=== PATIENT | female | born 1975 | race Caucasian/White ===

== ENCOUNTER 2020-03-01 12:46 | Emergency (ER) | payer OTHER, SELFPAY ==
--- NOTE | ~2020-03-01 | XR_ITS ---
EXAMINATION: XR chest 1V portable DATE: 03/01/2020 14:57 INDICATION: Shortness of breath and cough. TECHNIQUE: A single frontal view of the chest was obtained. COMPARISON: Chest single view 11/24/2018 FINDINGS: The chest demonstrates clear lungs without pneumonia, pleural effusion, or pneumothorax. Th e heart size is normal. IMPRESSION: 1. No acute cardiopulmonary disease. Reviewed, dictated and finalized at location A.
[2020-03-01 13:08] VITALS: BP 115/68; PULSE 100; RESP 20; TEMP 36.8; O2SAT 100
--- NOTE | 2020-03-01 14:10 | ED.URI ---
HPI - URI/Sore Throat General Chief Complaint: Upper Respiratory Infection Stated Complaint: cough/ST since Monday Time Seen by Provider: 03/01/20 13:50 Source: patient Mode of arrival: ambulatory Limitations: no limitations History of Present Illness HPI Narrative: This patient is a 44 year old female who presents for evaluation cough and chest congestion. Patient states starting on monday she developed sensation something was stuck in her chest pain/esophagus . She has no problems swallowing. On , she developed cough with sob. She also reports sore throat and congestion. She denies fever or chills. She has been taking cold medication without relief of her symptoms. She denies nausea or vomiting. She reports normal bowel movements with no signs of GI bleeding. MD elicited complaint: cough and sore throat Related Data Home Medications Medication Instructions Recorded Confirmed folic acid 03/01/20 pantoprazole PO 03/01/20 Allergies Allergy/AdvReac Type Severity Reaction Status Date / Time azithromycin Allergy Intermediate Hives / Verified 03/01/20 13:52 Red Face erythromycin base Allergy Unknown Rash Verified 03/01/20 13:52 Penicillins Allergy Unknown Swelling Verified 03/01/20 13:52 Review of Systems Review of Systems: All systems reviewed & are unremarkable except as noted in HPI and below Constitutional: Constitutional: Denies chills and Denies fever(s) ENT: Reports sore throat Cardiovascular: Cardiovascular: Reports chest pain and Denies radiating jaw, neck or arm pain Respiratory: Respiratory: Reports chest congestion, Reports cough, Reports dyspnea and Reports wheezing Gastrointestinal: Gastrointestinal: Denies abdominal pain, Denies diarrhea, Denies nausea and Denies vomiting PMFSH Past Medical History Medical History (Updated 03/01/20 @ 16:46 by Addis Hernandez MD) Cirrhosis Esophageal varices Hepatitis C Surgical History Surgical History (Updated 03/01/20 @ 14:13 by Addis Hernandez MD) History of tonsillectomy Social History Social History (Updated 03/01/20 @ 14:13 by Addis Hernandez MD) Alcohol intake: former Substance use: former Substance use type: IV drugs Exam Narrative: Exam Narrative: GENERAL: Well-appearing, well-nourished, and in no acute distress. HEAD: Normocephalic, atraumatic EYES: PERRLA and EOMI, conjunctiva clear without discharge EARS: TM's clear bilaterally without erythema or dullness NOSE: Nares clear, no rhinorrhea or epistaxis THROAT:Mucous membranes moist, Oropharynx normal without erythema, exudate, peritonsillar swelling or fluctuance NECK: Supple, without lymphadenopathy or mass RESPIRATORY: No respiratory distress, Airway patent, Respirations non-labored, Clear to auscultation without rales, rhonchi or wheeze HEART: Regular rate and rhythm. No murmur heard. Normal peripheral pulses. ABDOMEN: Soft, nontender, nondistended, normal active bowel sounds. No masses. No rebound or guarding, No organomegaly. EXTREMITIES: No edema, normal strength with full range of motion. SKIN: Warm, dry, normal color without rash NEURO: Alert and oriented x3. CN 2-12 grossly intact. No focal deficits. PSYCH: Normal mood and affect. Course Reevaluation(s) Reevaluation #1: I have discussed with patient that labs are unremarkable. She will be swabbed for COVID. She was given precautions. Date: 03/01/20 Time: 16:28 Vital Signs Vital signs: Vital Signs Temperature 98.2 F 03/01/20 13:08 Pulse Rate 100 03/01/20 13:08 Respiratory Rate 20 03/01/20 13:08 Blood Pressure 115/68 03/01/20 13:08 Pulse Oximetry 100 03/01/20 13:08 Temperature 98.2 F 03/01/20 13:08 Pulse Rate 79 03/01/20 17:11 Respiratory Rate 20 03/01/20 17:11 Blood Pressure 118/67 03/01/20 17:11 Pulse Oximetry 98 03/01/20 17:11 MDM - URI/Sore Throat Lab Data Attestation: I reviewed the patient's lab results. Result diag
[2020-03-01 14:31] LABS: Alveolar/Arterial O2 Gradient 11.2 mmHg; Base Excess ABG -0.8 mEq/l (+/-2.0); Carboxyhemoglobin 1.9 % THb (0-2.0); Device ROOM AIR; Fractional Inspired Oxygen 21 %; Methemoglobin ABG 0.2 %THb (0-1.5); Modified Allen's Test Pass; Oxygen Content ABG 16.1 %vol (16.0-22.0); Oxygen Saturation ABG 97.6 % (95.0-100.0); Oxyhemoglobin 94.9 % THb (90.0-100.0); PCO2 ABG 34.9 mmHg (35.0-45.0); PO2 ABG 96.7 mmHg (80.0-100.0); Site Drawn LEFT RADIAL; pH ABG 7.436 (7.350-7.450)
[2020-03-01 14:33] LABS: Basophils Absolute Auto 0.1 K/mm3 (0.0-0.1); Basophils Percent Auto 1.1 % (0.2-1.2); Eosinophils Absolute Auto 0.2 K/mm3 (0-0.3); Eosinophils Percent Auto 3.7 % (0-4.4); Hematocrit 32.4 % (37.0-47.0); Immature Granulocyte Absolute 0.01 K/mm3 (0.00-0.031); Immature Granulocyte Percent A 0.2 % (0-0.5); Immature Platelet Fraction Pct 4.6 % (0.9-11.2); Lymphocytes Absolute Auto 0.66 K/mm3 (0.9-3.2); Lymphocytes Percent Auto 15.1 % (18.3-44.2); Mean Corpuscular Volume 91.3 fl (80-100); Mean Platelet Volume 11.5 fl (7.4-10.4); Monocytes Absolute Auto 0.6 K/mm3 (0.1-0.6); Neutrophils Absolute Auto 2.9 K/mm3 (1.3-6.7); Neutrophils Percent Auto 66.9 % (45.5-73.1); Platelet Count Result 51 k/mm3 (150-375); Red Blood Count 3.55 M/mm3 (4.2-5.4); Red Cell Distribution Width 15.9 % (11.5-14.5); White Blood Count 4.4 K/mm3 (4.5-10.0)
[2020-03-01 14:45] LABS: INR 1.4; Prothrombin Time 16.3 Seconds (11.1-14.7)
[2020-03-01 14:48] LABS: Alanine Aminotransferase 22 U/L (4-35); Albumin Level 3.8 g/dL (3.5-5.1); Alkaline Phosphatase 141 U/L (38-126); Aspartate Amino Transferase 64 U/L (14-36); Bilirubin,Total 1.3 mg/dL (0.2-1.3); Blood Urea Nitrogen 4 mg/dL (7-17); CRP 3.1 mg/dL (<1.0); Calcium 8.4 mg/dL (8.4-10.2); Carbon Dioxide 22 mmol/L (22-30); Chloride 107 mmol/L (98-107); Estimated CRCL calculation 143 ml/min; Estimated Glomerular Filt Rate > 60; Glucose 93 mg/dL (65-105); Magnesium 1.9 mg/dL (1.6-2.3); Potassium 3.9 mmol/L (3.4-5.0); Sodium 139 mmol/L (137-145)
[2020-03-01 15:22] VITALS: PULSE 86; O2SAT 96
--- NOTE | 2020-03-01 16:29 | ECG_ITS ---
Measurements Intervals [place] Rate: 76 P: 18 VT: 114 QRS: 32 QRSD: 73 T: 23 QT: 362 QTc: 409 Interpretive Statements SINUS RHYTHM WITH SHORT VT INTERVAL LOW QRS VOLTAGE IN PRECORDIAL LEADS BASELINE ARTIFACT- I, II, III, AVR, AVL BORDERLINE ECG Electronically Signed On 03-01-2020 16:57:26 CDT by Gilberto Pandya D.O.
[2020-03-01 17:11] VITALS: BP 118/67; PULSE 79; RESP 20; O2SAT 98
[2020-03-02 14:26] LABS: SARS-CoV-2 RNA PCR Negative
== END 2020-03-01 17:11 | disposition home or self-care (01) ==
PROVIDERS: Emergency Provider General Practice; PCP Family Medicine
DX: J06.9 Acute upper respiratory infection, unspecified (principal); Z20.828 Contact with and (suspected) exposure to other viral communicable diseases; K74.60 Unspecified cirrhosis of liver; Z86.19 Personal history of other infectious and parasitic diseases; R94.31 Abnormal electrocardiogram [ECG] [EKG]
CPT/HCPCS: 36415; 36600; 71045; 80053; 82375; 82805; 83050; 83735; 85025; 85055; 85610; 85730; 86140; 87081; 87635; 87880; 93005; 99283; C9803; U0003

== ENCOUNTER 2020-05-19 11:05 | Emergency (ER) | payer OTHER, SELFPAY ==
--- NOTE | ~2020-05-19 | XR_ITS ---
EXAMINATION: XR tibia fibula LT 2V EXAM DATE: 05/19/2020 11:46 INDICATION: Initial encounter following injury, with pain of the left tibia/fibula. TECHNIQUE: Left tibia/fibula frontal and lateral projections obtained and reviewed. There is no prio r study for comparison. FINDINGS: Left tibial and fibular shafts unremarkable. There are no acute fractures or dislocations identified. There is no subcutaneous gas. The soft tissue is unremarkable. There are no radiopaqu e foreign bodies. IMPRESSION: 1. Left tibia/fibula exam without acute osseous findings. Reviewed, dictated and finalized at location B.
--- NOTE | ~2020-05-19 | US_ITS ---
EXAMINATION: US venous doppler [facility] EXAM DATE: 05/19/2020 12:33 INDICATION: Left leg swelling. TECHNIQUE: Multiple grayscale, color flow and Doppler images of the left lower extremity deep venous system were obtained and reviewed. There is no prior study for comparison. FINDINGS: The left common femoral, femoral and profunda veins demonstrate normal color flow, respirat ory variation, augmentation and compressibility. Compressibility, color flow confirmed within the le ft popliteal, posterior tibial, peroneal, and greater saphenous veins. IMPRESSION: 1. No left lower extremity deep venous thrombosis. Reviewed, dictated and finalized at location B.
--- NOTE | ~2020-05-19 | XR_ITS ---
EXAMINATION: XR ankle LT 2V, XR foot LT min 3V EXAM DATE: 05/19/2020 11:46 INDICATION: Initial encounter following injury, with pain of the left foot, ankle. TECHNIQUE: Left foot dorsoplantar, lateral and oblique projections obtained and reviewed. Left ankle frontal, lateral and oblique projections obtained and reviewed. There is no prior study for compari son. FINDINGS: The left ankle mortise appears intact. Probable old 5th metatarsal shaft fracture, hea led. There are no acute fractures or dislocations identified. There is no subcutaneous gas. There is soft tissue swelling overlying the ankle. There are no radiopaque foreign bodies. IMPRESSION: 1. Left foot, ankle exam without acute osseous findings. 2. Soft tissue swelling. Reviewed, dictated and finalized at location B. IMPRESSION: 1. Left foot, ankle exam without acute osseous findings. 2. Soft tissue swelling.
--- NOTE | 2020-05-19 11:09 | ED.LOWEXIN ---
HPI - Extremity Injury (Lower) General Chief Complaint: Extremity Injury, Lower Stated Complaint: FOOT PAIN, WANTS TESTED FOR COVID (NO S&S) Time Seen by Provider: 05/19/20 11:09 Source: patient Mode of arrival: ambulatory Limitations: no limitations History of Present Illness HPI Narrative: Patient is a 44-year-old female with a history of cirrhosis secondary to hepatitis C, rheumatoid arthritis, who presents for evaluation of left ankle and foot pain. Patient reports she was walking her dog approximately a week ago, when her dog pulled her forward causing her to roll her ankle. Patient states that she has increased swelling and pain in the foot and left ankle since that time. She has been ambulatory. Patient states she has a history of fracture in that left ankle. No numbness. She does report burning, tingling sensation in that left ankle. No history of DVT. No fever, chills, nausea or vomiting. Patient also reports she recently had contact with a patient who was tested positive for COVID about a week ago. Patient states she feels well, denies fever, chills, cough, congestion, chest pain or shortness of breath. Related Data Home Medications Medication Instructions Recorded Confirmed folic acid 03/01/20 pantoprazole PO 03/01/20 Allergies Allergy/AdvReac Type Severity Reaction Status Date / Time azithromycin Allergy Intermediate Hives / Verified 05/19/20 12:18 Red Face erythromycin base Allergy Unknown Rash Verified 05/19/20 12:18 Penicillins Allergy Unknown Swelling Verified 05/19/20 12:18 Review of Systems Review of Systems: Narrative: CONSTITUTIONAL: Denies fever, chills, or sweats. EYES: Denies visual changes, redness, or discharge. ENT: Denies rhinorrhea, congestion, sore throat, or otalgia. CARDIOVASCULAR: Denies chest pain, palpitations, reports left lower extremity swelling RESPIRATORY: Denies cough or dyspnea. GASTROINTESTINAL: Denies abdominal pain, nausea, vomiting, or diarrhea. GENITOURINARY: Denies dysuria or hematuria. SKIN: Denies rash or itching. MUSCULOSKELETAL: Denies back pain, reports left ankle pain, left foot pain NEUROLOGIC: Denies headache, numbness, or weakness. [facility] Past Medical History Medical History Cirrhosis Esophageal varices Hepatitis C Surgical History Surgical History History of tonsillectomy Social History Social History Alcohol intake: former Substance use: former Substance use type: IV drugs Exam Narrative: Exam Narrative: GENERAL: Awake, alert, conversant HEAD: Normocephalic, atraumatic. EYES: PERRLA and EOMI. ENT: Nares clear, no rhinorrhea or epistaxis. Mucous membranes moist. NECK: Supple. CHEST: No respiratory distress, breathing even and non labored HEART: Regular rate, sinus rhythm ABDOMEN:Non distended, non tender EXTREMITIES: Normal range of motion. Edema at the left lower calf muscle extending to the left ankle and left foot. Tender to palpation. Extremities warm and well perfused. Mild erythema, mild warmth, no blistering. No abscess. SKIN: Warm, dry, no rash. NEURO:No focal deficits. Alert and oriented x3 Course Vital Signs Vital signs: Vital Signs Temperature 36.8 C 05/19/20 11:15 Pulse Rate 108 H 05/19/20 11:15 Respiratory Rate 16 05/19/20 11:15 Blood Pressure 116/63 05/19/20 11:15 Pulse Oximetry 96 05/19/20 11:15 Temperature 36.8 C 05/19/20 11:15 Pulse Rate 108 H 05/19/20 11:15 Respiratory Rate 16 05/19/20 11:15 Blood Pressure 116/63 05/19/20 11:15 Pulse Oximetry 96 05/19/20 11:15 MDM - Extremity Injury (Lower) MDM Narrative Medical decision making narrative: Patient presenting for evaluation of left ankle swelling, foot swelling in the setting of injury approximately a week ago. Patient has been ambulatory. On exam, lower
[2020-05-19 11:15] VITALS: BP 116/63; PULSE 108; RESP 16; TEMP 36.8; O2SAT 96
[2020-05-19 12:07] LABS: Basophils Absolute Auto 0.1 K/mm3 (0.0-0.1); Basophils Percent Auto 1.6 % (0.2-1.2); Eosinophils Absolute Auto 0.2 K/mm3 (0-0.3); Eosinophils Percent Auto 3.5 % (0-4.4); Hematocrit 34.1 % (37.0-47.0); Hemoglobin 11.3 g/dL (12.0-15.0); Immature Granulocyte Absolute 0.01 K/mm3 (0.00-0.031); Immature Granulocyte Percent A 0.2 % (0-0.5); Immature Platelet Fraction Pct 6.2 % (0.9-11.2); Lymphocytes Absolute Auto 0.65 K/mm3 (0.9-3.2); Lymphocytes Percent Auto 15.1 % (18.3-44.2); Mean Corpuscular HGB Conc 33.1 g/dl (32-36); Mean Corpuscular Volume 93.7 fl (80-100); Mean Platelet Volume 11.7 fl (7.4-10.4); Monocytes Absolute Auto 0.5 K/mm3 (0.1-0.6); Monocytes Percent Auto 10.7 % (2.6-8.5); Neutrophils Percent Auto 68.9 % (45.5-73.1); Platelet Count Result 34 k/mm3 (150-375); Red Blood Count 3.64 M/mm3 (4.2-5.4); Red Cell Distribution Width 15.9 % (11.5-14.5); White Blood Count 4.3 K/mm3 (4.5-10.0)
[2020-05-19 12:17] LABS: Anion Gap 6 mmol/L (8-16); Blood Urea Nitrogen 3 mg/dL (7-17); Carbon Dioxide 30 mmol/L (22-30); Chloride 108 mmol/L (98-107); Estimated Glomerular Filt Rate > 60; Glucose 105 mg/dL (65-105); Potassium 3.7 mmol/L (3.4-5.0); Sodium 144 mmol/L (137-145)
[2020-05-19 13:27] VITALS: BP 103/74; PULSE 89; RESP 14; O2SAT 97
== END 2020-05-19 13:15 | disposition home or self-care (01) ==
PROVIDERS: Emergency Provider Emergency Medicine
DX: S93.402A Sprain of unspecified ligament of left ankle, initial encounter (principal); R22.42 Localized swelling, mass and lump, left lower limb; X50.0XXA Overexertion from strenuous movement or load, initial encounter; Z20.828 Contact with and (suspected) exposure to other viral communicable diseases
CPT/HCPCS: 36415; 73590; 73600; 73630; 80048; 85025; 85055; 93971; 99284

== ENCOUNTER 2020-07-10 12:36 | Emergency (ER) | payer OTHER, SELFPAY ==
[2020-07-10 13:07] VITALS: BP 130/71; PULSE 102; RESP 20; TEMP 36.5; O2SAT 99
--- NOTE | 2020-07-10 13:43 | PC.NURSE ---
Patient left ER. States I really don't want to be in the waiting room with a bunch of sick people, I'll come back this weekend. Informe dpatient to return if symptoms worsen or she has other concerns
== END 2020-07-10 13:43 | disposition left against medical advice (07) ==
DX: M79.672 Pain in left foot (principal)
CPT/HCPCS: 99199

== ENCOUNTER 2020-07-20 16:12 | Outpatient (CLI) | payer OTHER, SELFPAY ==
--- NOTE | ~2020-07-20 | US_ITS ---
EXAMINATION: US venous doppler [facility] DATE: 07/20/2020 16:34 INDICATION: Left lower limb swelling. TECHNIQUE: Grayscale ultrasound images without and with compression and Doppler ultrasound images of the left lower extremity veins were obtained. COMPARISON: Ultrasound 05/19/2020 FINDINGS: The visualized portions of left common femoral vein, profunda (deep) femoral vein, femoral vein, popl iteal vein, peroneal veins, posterior tibial veins, and greater saphenous vein outflow are patent. IMPRESSION: 1. No deep venous thrombosis. Reviewed, dictated and finalized at location B. [employer] DETAIL DRAFTSPERSON
== END 2020-07-20 16:13 | disposition home or self-care (01) ==
PROVIDERS: Visit Provider Orthopaedic Surgery
DX: R60.0 Localized edema (principal)
CPT/HCPCS: 93971

== ENCOUNTER 2020-07-25 12:22 | Outpatient (CLI) | payer OTHER, SELFPAY ==
[2020-07-25 14:02] LABS: Basophils Absolute Auto 0.1 K/mm3 (0.0-0.1); Basophils Percent Auto 1.3 % (0.2-1.2); Eosinophils Absolute Auto 0.2 K/mm3 (0-0.3); Eosinophils Percent Auto 4.2 % (0-4.4); Hemoglobin 11.7 g/dL (12.0-15.0); Immature Granulocyte Absolute 0.01 K/mm3 (0.00-0.031); Immature Granulocyte Percent A 0.3 % (0-0.5); Immature Platelet Fraction Pct 9.5 % (0.9-11.2); Lymphocytes Absolute Auto 0.64 K/mm3 (0.9-3.2); Lymphocytes Percent Auto 16.7 % (18.3-44.2); Mean Corpuscular HGB Conc 33.4 g/dl (32-36); Mean Corpuscular Hemoglobin 32.1 pg (26-34); Mean Corpuscular Volume 95.9 fl (80-100); Mean Platelet Volume 13.3 fl (7.4-10.4); Monocytes Absolute Auto 0.4 K/mm3 (0.1-0.6); Neutrophils Absolute Auto 2.6 K/mm3 (1.3-6.7); Neutrophils Percent Auto 66.5 % (45.5-73.1); Platelet Count Result 26 k/mm3 (150-375); Red Blood Count 3.65 M/mm3 (4.2-5.4); Red Cell Distribution Width 14.3 % (11.5-14.5); White Blood Count 3.8 K/mm3 (4.5-10.0)
[2020-07-25 14:15] LABS: Alanine Aminotransferase 40 U/L (4-35); Albumin Level 3.2 g/dL (3.5-5.1); Alkaline Phosphatase 229 U/L (38-126); Anion Gap 7 mmol/L (8-16); Aspartate Amino Transferase 156 U/L (14-36); Bilirubin,Total 2.1 mg/dL (0.2-1.3); Blood Urea Nitrogen 2 mg/dL (7-17); Calcium 8.1 mg/dL (8.4-10.2); Carbon Dioxide 28 mmol/L (22-30); Chloride 106 mmol/L (98-107); Cholesterol 143 mg/dL (0-200); Estimated Glomerular Filt Rate > 60; Glucose 112 mg/dL (65-105); HDL Direct 34 mg/dL; Potassium 3.8 mmol/L (3.4-5.0); Sodium 141 mmol/L (137-145); Triglycerides 163 mg/dL (<150)
[2020-07-25 14:29] LABS: LDL Cholesterol Direct 63 mg/dL
[2020-07-25 15:08] LABS: Hemoglobin A1C 4.5 % (<5.7)
[2020-07-25 15:14] LABS: Vitamin D 25 Hydroxy 17.4 ng/mL
== END 2020-07-25 12:23 | disposition home or self-care (01) ==
DX: Z13.9 Encounter for screening, unspecified (principal)
CPT/HCPCS: 36415; 80053; 80061; 82306; 83036; 85025; 85055

== ENCOUNTER 2020-08-01 08:43 | Outpatient (CLI) | payer OTHER, SELFPAY ==
--- NOTE | ~2020-08-01 | MR_ITS ---
EXAMINATION: MR ankle LT wo con DATE: 08/01/2020 09:31 INDICATION: Left ankle pain. TECHNIQUE: Magnetic resonance imaging (MRI) of the left ankle was performed without intravenous contr ast. Sequences included sagittal PD-weighted FS FSE, sagittal PD-weighted FSE, coronal PD-weighted FS FSE, coronal PD-weighted FSE, axial PD-weighted FS FSE, and axial PD-weighted FSE. COMPARISON: Left ankle radiograph 05/19/2020 FINDINGS: Medial ankle ligaments: The superficial and deep components of the deltoid ligament are normal. Lateral ankle ligaments: There are changes of prior sprains of anterior talofibular ligament and calcaneofibular ligament rosas acterized by increased signal intensity. Posterior talofibular ligament is normal. The anterior and p osterior tibiofibular ligaments are intact. Tendons: There is mild tenosynovitis of the medial ankle tendons. The anterior ankle tendons are normal. There is a longitudinal split tear of peroneus brevis tendon. There is mild peroneus longus tendinopathy. There is tenosynovitis of the peroneal tendons. There is mild Achilles tendinopathy. Plantar fascia: Normal. There is an enthesophyte at the calcaneal attachment. Bones/other: Bone alignment is normal. No fracture. There is mild midfoot osteoarthritis. There is moderate osteoa rthritis of second tarsometatarsal joint. Fluid: There is subcutaneous edema about the ankle. IMPRESSION: 1. Longitudinal split tear of peroneus brevis tendon. Mild peroneus longus tendinopathy. Peroneal ten osynovitis. 2. Changes of lateral ankle sprain. 3. Midfoot osteoarthritis. Reviewed, dictated and finalized at location A. UNICATION ENGINEER IMPRESSION: 1. Longitudinal split tear of peroneus brevis tendon. Mild peroneus longus tend inopathy. Peroneal tenosynovitis. 2. Changes of lateral ankle sprain. 3. Midfoot osteoarthritis.
== END 2020-08-01 08:44 | disposition home or self-care (01) ==
PROVIDERS: Visit Provider Orthopaedic Surgery
DX: M19.072 Primary osteoarthritis, left ankle and foot (principal); S93.402D Sprain of unspecified ligament of left ankle, subsequent encounter; X58.XXXD Exposure to other specified factors, subsequent encounter
CPT/HCPCS: 73721

== ENCOUNTER 2020-09-06 16:21 | Inpatient (IN) | payer OTHER, SELFPAY ==
[2020-09-06] VITALS (26 sets, daily range): BP systolic 60–184; BP diastolic 40–141; PULSE 85–154; RESP 12–94; TEMP 34.4–36.4; O2SAT 26–100
--- NOTE | ~2020-09-06 | XR_ITS ---
EXAMINATION: XR abdomen/kub 1V EXAM DATE: 09/06/2020 23:27 INDICATION: Abdominal pain. TECHNIQUE: Frontal projection(s) of the abdomen for interpretation. There is no prior study for maida hathaway. FINDINGS: Nonspecific but nonobstructive bowel gas pattern. Several epigastric region small foreign bodies, could be surgical clips. There are no osseous abnormalities identified. IMPRESSION: Nonobstructive bowel gas pattern. Reviewed, dictated and finalized at location A. [employer]ATE [employer]
--- NOTE | ~2020-09-06 | XR_ITS ---
EXAMINATION: XR chest port-a-cath/central EXAM DATE: 09/06/2020 16:21 INDICATION: Central line placement. TECHNIQUE: Portable AP frontal chest x-ray was obtained. Comparison is made to prior examination from 03/14/2019. FINDINGS: Feeding tube tip and side-port are in position. The right IJ venous line is extending later ally into the right subclavian vein, tip overlying the right axilla. I discussed this position with Can Cornejo MD. No confluent consolidation, pneumothorax or pleural effusion suspected. The cardiomediastinal silhoue tte is prominent but magnified on this AP technique. There are no osseous abnormalities identified. IMPRESSION: 1. Abnormal position right IJ line. 2. Nasogastric tube in position. 3. No acute cardiopulmonary findings. Reviewed, dictated and finalized at location A. E CLEANER
--- NOTE | ~2020-09-06 | XR_ITS ---
EXAMINATION: XR chest 1V portable EXAM DATE: 09/07/2020 06:04 INDICATION: Intubated. TECHNIQUE: Portable AP frontal chest x-ray was obtained. Comparison is made to prior examination from 09/06/2020. FINDINGS: Endotracheal tube tip is 4-5 centimeters above the angy. Right IJ venous line again iden tified the tip extending down the right subclavian vein. There is ill-defined bilateral reticulation, which could be edema or infection. There are no sizable pleural effusions. There is no pneumothorax suspected. Cardiomediastinal silhouette is normal. The bones and soft tissues are unremarkable. Ill-defined bilateral reticulation has developed compared to previous days. IMPRESSION: 1. Abnormal right subclavian line position, tip extending into right subclavian vein to the level of the axilla. 2. Developing bilateral ill-defined infection or edema. Reviewed, dictated and finalized at location A. [employer] IMPRESSION: 1. Abnormal right subclavian line position, tip extending into right subclavia n vein to the level of the axilla. 2. Developing bilateral ill-defined infection or edema.
--- NOTE | ~2020-09-06 | XR_ITS ---
EXAMINATION: XR chest 1V portable DATE: 09/07/2020 14:04 INDICATION: PICC line placement TECHNIQUE: frontal view of the chest was obtained. COMPARISON: Chest radiograph dated 09/07/2020 FINDINGS: Left upper extremity peripherally inserted central venous catheter (PICC) tip at the caudal superior vena cava. Endotracheal tube tip 4.8 cm above the angy. Right subclavian central venous catheter w hich extends into the right subclavian vein with distal tip in the right axillary vein. Opacities in the right lower lung zone and to lesser degree left lower lung zone which could represen t atelectasis and/or pneumonia. No pleural effusion or pneumothorax. The cardiomediastinal silhouette is normal. Surgical clips in the epigastric region. IMPRESSION: 1. Left PICC line tip in the caudal superior vena cava. 2. Right internal jugular central venous catheter with distal tip in the right axillary vein. 3. Opacities in the bilateral lower lung zones, right greater than left, which could represent atelec tasis and/or pneumonia. Reviewed, dictated and finalized at location B. R REPRESENTATIVE IMPRESSION: 1. Left PICC line tip in the caudal superior vena cava. 2. Right internal jugular central venous catheter with distal tip in the right axillary vein. 3. Opacities in the bilateral lower lung zones, right greater than left, which could represent atelectasis and/or pneumonia.
--- NOTE | ~2020-09-06 | XR_ITS ---
EXAMINATION: XR chest 1V portable EXAM DATE: 09/08/2020 06:23 INDICATION: intubation TECHNIQUE: Portable AP frontal chest x-ray was obtained. Comparison is made to prior examination from 09/07. FINDINGS: Endotracheal tube tip is 4-5 centimeters above the angy. There is a nasogastric tube seen with tip collimated off the study, but below the left hemidiaphragm. There is a left-sided PICC li ne, tip projecting over the SVC below the level of the angy. There is ill-defined bilateral reticulation, which could be edema or infection. There are no sizable pleural effusions. There is no pneumothorax suspected. Cardiomediastinal silhouette is normal. The bones and soft tissues are unremarkable. The previously seen right IJ line has been removed. Airspace disease appears unchanged. IMPRESSION: 1. Line, tubes in position. 2. Bilateral ill-defined infection or edema. Reviewed, dictated and finalized at location A. TOR OPERATOR
--- NOTE | ~2020-09-06 | XR_ITS ---
XR abdomen NG/feed tube insert DATE: 09/07/2020 16:58 INDICATION: NG tube insertion TECHNIQUE: Portable supine AP view COMPARISON: None FINDINGS: A nasogastric tube is present in the lower body of the stomach, the proximal port 6 cm dist al to the diaphragmatic hiatus. IMPRESSION: NG tube in stomach Reviewed, dictated and finalized at Location A. Reviewed, dictated and finalized at location A. TRUCK OPERATOR IMPRESSION: NG tube in stomach
--- NOTE | 2020-09-06 16:27 | ED.GIBLEED ---
HPI - GI Bleed General Chief complaint: GI Bleed Stated complaint: GI Bleed Time Seen by Provider: 09/06/20 16:26 History of Present Illness HPI Narrative: 45 yo female w/ h/o cirrhosis and esophageal varices presents to the ED for a GI bleed. She reportedly began vomiting bright red blood about 1 hour prior to arrival. She has a liver doctor at [facility]. She is feeling light headed. History is limited by medical condition. Related Data Home Medications Medication Instructions Recorded Confirmed No Home Medications 09/06/20 09/06/20 Allergies Allergy/AdvReac Type Severity Reaction Status Date / Time azithromycin Allergy Intermediate Hives / Verified 09/06/20 16:25 Red Face erythromycin base Allergy Unknown Rash Verified 09/06/20 16:25 Penicillins Allergy Unknown Swelling Verified 09/06/20 16:25 Review of Systems Review of Systems: ROS unobtainable: Yes unobtainable due to medical condition PMFSH Past Medical History Medical History (Updated 09/06/20 @ 17:49 by Chinmay Cornejo MD) Cirrhosis Esophageal varices Hepatitis C Surgical History Surgical History History of tonsillectomy Social History Social History Alcohol intake: former Substance use: former Substance use type: IV drugs Gender identity (if verbalized by the patient): Female Exam Const: General: alert and ill appearing acutely Orientation/consciousness: patient oriented x3 Other: Severe distress. HENMT: Other: Active hematemesis Eyes: Pupils: Equal, round and reactive pupils present Resp: Effort & Inspection: normal respiratory effort and tachypneic Cardio: Rate: tachycardic Rhythm: regular rhythm GI: Inspection: distended Skin: General skin exam: jaundice and pallor Neuro: General: patient oriented x3 and moves all extremities Other: Listless Extrem: General: normal to inspection Course Vital Signs Vital signs: Vital Signs Temperature 36.4 C L 09/06/20 16:32 Pulse Rate 106 H 09/06/20 16:32 Respiratory Rate 40 H 09/06/20 16:32 Blood Pressure 83/51 L 09/06/20 16:32 Pulse Oximetry 99 09/06/20 16:32 Temperature 36.3 C L 09/06/20 17:32 Pulse Rate 94 09/06/20 17:32 Respiratory Rate 16 09/06/20 17:32 Blood Pressure 78/55 L 09/06/20 17:32 Pulse Oximetry 98 09/06/20 17:32 Procedures Central Line Placement Right IJ: Performed Emergently - Given emergent patient condition, temporal constraints may have precluded informed consent.: Yes Patient Placed on Monitor/Pulse Ox: Yes Max. Sterile Barrier Technique: Caps, large sterile sheet and hand hygiene Central Line Prep: 2% chlorhexidine scrub and sterile drapes applied Technique: US-Guided Local Anesthetic: lidocaine 1% Ultrasound Used for Placement: Yes Central Line Lumen Inserted: triple Post Procedure: sutured in place, good blood return, all ports aspirated, flushed, capped and sterile dressing applied Post Procedure X-Ray: no pneumothorax seen Patient Tolerated Procedure: well Complications: catheter malposition (Tip appears to be in subclavian vein. Not ideal placement, but I will leave it in place for the time being. ) MDM - GI Bleed Lab Data Labs: Lab Results 09/06/20 09/06/20 Range/Units 15:26 16:59 Urine Color Alize (Yellow) Urine Appearance Cloudy H (Clear) Urine pH 6.0 (5.0-9.0) Ur Specific [place] 1.019 (1.001-1.035) Urine Protein 2+ H (Negative) mg/dL Urine Glucose (UA) 1+ H (Negative) mg/dL Urine Ketones Negative (Negative) mg/dL Ur Blood (Man) Negative (Negative) Urine Nitrate Negative (Negative) Urine Bilirubin 1+ H (Negative) Urine Urobilinogen 4.0 H (<2.0) mg/dL Leukocyte Esterase Rfl Trace H (Negative) CINTHIA/UL Urine RBC 11-20 H (0-2) /hpf Urine WBC 0-3 /hp
--- NOTE | 2020-09-06 16:30 | PC.NURSE ---
At 1555 patient vitals 99 heart rate, 16 respirations and BP 64/44. 1559 pulse rate 92 with bp 70/49. 1601 pulse rate 94, respirations 17 and bp 70/49. 1606 pulse rate 100, respirations 15 with bp 73/57.
--- NOTE | 2020-09-06 16:41 | PC.NURSE ---
Patient received 1 LI per EMS and stopped at approx 1528. At 1532 a 18 turkish NG placed in right nare with position 60 at the nare. Copious amounts of blood noted on output. 1534 verbal consent obtained for massive blood transfusion and central line placement.
[2020-09-06] MEDS: OCTREOTIDE ACETATE 50 MCG/ML VIAL IV PUSH (16:49)
[2020-09-06] MEDS: PANTOPRAZOLE SODIUM IV 40 MG VIAL 80 MG IV PUSH (16:50)
[2020-09-06] MEDS: TRANEXAMIC ACID 1,000 MG/10 ML AMPUL 1000 MG IV PUSH (16:50)
--- NOTE | 2020-09-06 16:51 | PC.NURSE ---
NS 1 Li infused at this time, started LR 999ml/hr at this time for BP 74/51.
--- NOTE | 2020-09-06 17:00 | PM.IMHP ---
H&P: HPI History of Present Illness Date/Time: 09/06/20 17:00 Chief Complaint: Abdominal pain and hematemesis. Narrative: This is a 45-year-old female with history of alcohol abuse, cirrhosis, and hepatitis-C who presented to the emergency department earlier today via ambulance with abdominal pain and hematemesis. After work today she had [employer] for lunch and returned home. Not long thereafter she developed diffuse, sharp shooting abdominal pain followed by severe nausea and vomiting. From the outset she reports vomiting bright red blood in significant quantities, and she was also passing dark stools at the same time. With further questioning she mentions that she has been having abdominal pain off and on for nearly 1 month with increasing abdominal girth. She has an upcoming appointment with her java oracle developer at [facility] in the coming weeks for repeat endoscopy (she had several esophageal varices banded in March 2020). She has not had fever, chills, or sweats. No alcohol use since November 2019. She had not noticed any dark stools recently but does report an increase in epistaxis. Due to significant blood loss, and emergent EGD was done at bedside in the ICU per Dr. Corea. No obvious varices or source of bleeding was readily apparent at the outset, and a large amount of bright red blood with clots was seen in the gastric cardia. Nearly 1.5 L of blood was suctioned and after irrigation a large Toshia-Haas tear was evident in the gastric cardia for which a total of 16 mL of epinephrine was administered in addition to 5 clips. Throughout the procedure, I was in contact with Dr. Mak, gastroenterology at [facility], as initially it was thought that the patient was going to need transfer emergently. Her case is still open at [facility] should she need to be transferred, however she has since stabilized. Review of Systems Review of Systems: Narrative: Twelve systems were reviewed with pertinent positives and negatives as per HPI. She denies fever, chills, and sweats. No recent cold or flu symptoms. No cough or shortness of breath. No chest pain. She denies dysuria. Except as documented, all other systems were reviewed and are negative. FORMERLY [facility], [facility]–1983 Past Medical History Medical History (Updated 09/06/20 @ 22:48 by Kemi Story PA-C) [place] esophagus Cirrhosis Esophageal varices Banded at [facility] in March 2020. Gastroesophageal reflux disease Hepatitis C Patient reportedly completed treatment for same. History of alcohol abuse She has abstained from using alcohol since November 2019. 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 History of seizures Thrombocytopenia Surgical History Surgical History History of tonsillectomy Family History Family History (Updated 09/06/20 @ 22:44 by Kemi Story PA-C) Other Cancer Social History Social History (Updated 09/06/20 @ 22:45 by Kemi Story PA-C) Social History: The patient is currently living in [place] with her mother. 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 Former alcoholic, dry since November 2019. She is a smoker, approximately 6 cigarettes a day. She designates her mother Lexi Valiente as her surrogate decision maker and she wishes to be a full code. Her ex-, Ramiro Harris, is her healthcare power of senior attorney and she wishes for both him and her mother to make medical decisions on her behalf should she be unable to do so. She wishes to be a full code. Alcohol intake: former Substance use: former Substance use type: IV drugs Gender identity (if verbalized by the patient): Female Meds Home Medications and Allergies Home Medications Medication Instructions Recorded Confirmed Type No Home Medications 09/06/20 09/06/20 History Allergies Allergy/AdvReac Type [place]
[2020-09-06] MEDS: SODIUM CHLORIDE 0.9% IV 250 ML 30 ML IV CONT (17:11)
[2020-09-06 17:13] LABS: Add Urine Microscopic? YES; Appearance Urine Cloudy (Clear); Bacteria Urine Trace /hpf; Bilirubin Urine 1+ (Negative); Blood Urine Negative (Negative); Color Urine Amber (Yellow); Glucose Urine UA 1+ mg/dL (Negative); Hyaline Casts Urine 20-29 /lpf; Ketones Urine Negative (Negative); Leukocyte Esterase Ur Trace LEU/UL (Negative); Mucus Urine Moderate /lpf; Nitrate Urine Negative (Negative); Protein Urine 2+ mg/dL (Negative); Specific Grav Ur 1.019 (1.001-1.035); Squamous Epithelial Cell Urine Many /hpf (Few); WBC Urine 0-3 /hpf
--- NOTE | 2020-09-06 18:20 | WPDGICN ---
Assessment and Plan Assessment and plan (1) Upper gastrointestinal hemorrhage: Code(s): K92.2 - Gastrointestinal hemorrhage, unspecified Status: Acute Assessment and Plan: will proceed with urgent egd continue with iv octreotide and protonix drip, also iv antibiotics in setting of acute gib with cirrhosis she is critically ill, ICU care anesthesia will proceed to intubate patient to protect her airway given large amount of hematemesis just before EGD (2) Hemorrhagic shock: Code(s): R57.8 - Other shock Status: Acute Assessment and Plan: she already received blood transfusion and plasma continue to monitor and give more as needed based on clinical course and counts. (3) Cirrhosis: Code(s): K74.60 - Unspecified cirrhosis of liver Status: Acute Assessment and Plan: history of HCV but treated and apparently achieved SVR she is established with asic design engineer at [facility] (4) Acute blood loss anemia: Code(s): D62 - Acute posthemorrhagic anemia Status: Acute (5) Esophageal varices: Code(s): I85.00 - Esophageal varices without bleeding Status: Acute Assessment and Plan: egd to assess source of bleeding- ? esophageal/gastric varices, ulcers, esophagitis, tear, etc (6) Thrombocytopenia: Code(s): D69.6 - Thrombocytopenia, unspecified Status: Acute Assessment and Plan: from cirrhosis GI Consult Note Consult date/time: 09/06/20 18:20 Reason for consult: gib, cirrhosis, shock HPI: Maryjo Rey is a 45 year old female with history of HCV that was treated and apparently cured (per patient), former alcoholic and drug user with last EGD 03/2020 at [facility] with endoscopic variceal banding (discussed case with her GI doctor- no report of gastric varix and also had eradication of esophageal varices) here with new onset of abdominal pain, nausea and emesis bright red blood, was lightheaded and also melena. She came to ER, labs hb 7.7, wbc 7, plat 68, bun 3, creat 0.6, ast 62, alt 20, alb 2.1, bili 2.2. She came to ICU and we are ready to proceed with urgent EGD, she also already received 2 units of PRBC and FFP. Review of Systems Constitutional: Constitutional: Reports fatigue Eyes: Eyes: Reports no additional eye complaints ENT: Reports Normal hearing present Cardiovascular: Cardiovascular: Reports lightheadedness Respiratory: Respiratory: Denies dyspnea Gastrointestinal: Gastrointestinal: Reports abdominal pain, Reports nausea, Reports vomiting and Reports hematemesis Genitourinary: Genitourinary: Denies hematuria Musculoskeletal: Musculoskeletal: Denies neck pain Integumentary/Breasts: Skin/Breast: Denies dry skin Neurologic: Denies numbness Psychiatric: Psychiatric: Reports anxiety [facility] Past Medical History Medical History (Updated 09/06/20 @ 20:10 by Rogers Corea MD) Acute blood loss anemia Cirrhosis Esophageal varices Hepatitis C Thrombocytopenia Surgical History Surgical History History of tonsillectomy Social History Social History Alcohol intake: former Substance use: former Substance use type: IV drugs Gender identity (if verbalized by the patient): Female Meds Home Medications and Allergies Home Medications Medication Instructions Recorded Confirmed Type No Home Medications 09/06/20 09/06/20 History Allergies Allergy/AdvReac Type Severity Reaction Status Date / Time azithromycin Allergy Intermediate Hives / Verified 09/06/20 16:25 Red Face erythromycin base Allergy Unknown Rash Verified 09/06/20 16:25 Penicillins Allergy Unknown Swelling Verified 09/06/20 16:25 Vital Signs Vital Signs - 24 hr 09/06/20 16:32 09/06/20 16:38 09/06/20 16:44 Temperature 97.5 F L 97.4 F L Pulse Rate 106 H 93 93 Respiratory Rate 40 H 12 21 H Blood Pressure
--- NOTE | 2020-09-06 18:20 | PC.NURSE ---
Addendum entered by Rona Brown RN 09/06/20 18:22: Blood was transfused at 1556. Original Note: 2 units PRBC given, please see massive blood transfusion form. Patient gave verbal consent at time of transfusion.
--- NOTE | 2020-09-06 18:44 | ADMGEN ---
This patient, Maryjo Rey, was admitted to Intensive Care Unit-8. Patient/family oriented to hospital policies and general routines including ID bracelet, bed and alarms, visiting hours, pain management, procedures, bathroom and other care routines, personal items, smoking policy, room service/diet, and visiting hours. Information on how to activate the Rapid Response Team has been discussed. Patient/Family are encouraged to report perceived risks to care and to ask questions if they do not understand what they are told or what they should do.
[2020-09-06] MEDS: FENTANYL 2,500MCG/NS250ML(*CRX 2,500 MCG/250 ML BAG IV CONT (19:00)
[2020-09-06] MEDS: NOREPINEPHRINE 8 MG/D5W 250 ML 8 MG/250 ML BAG 9.38 MG IV CONT (19:30)
[2020-09-06 20:09] LABS: Alveolar/Arterial O2 Gradient 343.4 mmHg; Base Excess ABG -10.6 mEq/l (+/-2.0); Carboxyhemoglobin 0.1 % THb (0-2.0); Fractional Inspired Oxygen 100 %; HCO3 ABG 15.8 mEq/l (22.0-26.0); Methemoglobin ABG 0.6 %THb (0-1.5); Oxygen Content ABG 14.1 %vol (16.0-22.0); Oxygen Saturation ABG 99.7 % (95.0-100.0); PCO2 ABG 37.2 mmHg (35.0-45.0); PO2 ABG 332.4 mmHg (80.0-100.0); PO2 FiO2 Ratio Arterial Blood 3.32 %; Reduced Hemoglobin 1.3 %THb (0-5.0); Total Hemoglobin 9.6 g/dL (12.0-18.0)
[2020-09-06 20:11] LABS: Device VENTILATOR; Modified Allen's Test Unable to perform; Site Drawn RIGHT RADIAL; pH ABG 7.246 (7.350-7.450)
[2020-09-06 20:12] LABS: Arterial Blood Gas PEEP 5 cmH2O; Arterial Blood Gas Tidal Volume 350 ml; Arterial Blood Gas Vent Mode ASSIST CONTROL; Arterial Blood Gas Ventilator rate 24 /MIN
--- NOTE | 2020-09-06 20:35 | SUR.OPER ---
MULTIPLE ESCROW OFFICER'S AT BEDSIDE THROUGHOUT PROCEDURE.
[2020-09-06] MEDS: LACTATED RINGERS 1,000 ML 125 ML IV CONT ×2 (21:10→23:17)
[2020-09-06] MEDS: CENTRAL LINE FLUSH 10 ML IV PUSH (21:28)
[2020-09-06] MEDS: SODIUM BICARBONATE 8.4% 50 MEQ/50 ML SYRINGE 100 MEQ IV PUSH (21:28)
[2020-09-06] MEDS: VASOPRESSIN INJ 100 UNITS in DEXTROSE 5% 95 ML IV CONT (21:32)
[2020-09-06 21:33] LABS: Basophils Absolute Auto 0.1 K/mm3 (0.0-0.1); Basophils Percent Auto 0.5 % (0.2-1.2); Eosinophils Percent Auto 0.3 % (0-4.4); Hemoglobin 8.9 g/dL (12.0-15.0); Immature Granulocyte Absolute 0.23 K/mm3 (0.00-0.031); Immature Granulocyte Percent A 2.1 % (0-0.5); Lymphocytes Absolute Auto 0.86 K/mm3 (0.9-3.2); Lymphocytes Percent Auto 7.7 % (18.3-44.2); Mean Corpuscular Hemoglobin 31.2 pg (26-34); Mean Corpuscular Volume 94.7 fl (80-100); Mean Platelet Volume 10.2 fl (7.4-10.4); Monocytes Absolute Auto 0.4 K/mm3 (0.1-0.6); Monocytes Percent Auto 3.7 % (2.6-8.5); Neutrophils Absolute Auto 9.6 K/mm3 (1.3-6.7); Neutrophils Percent Auto 85.7 % (45.5-73.1); Platelet Count Result 113 k/mm3 (150-375); Red Blood Count 2.85 M/mm3 (4.2-5.4); Red Cell Distribution Width 15.8 % (11.5-14.5); White Blood Count 11.2 K/mm3 (4.5-10.0)
[2020-09-06 21:42] LABS: Alanine Aminotransferase 34 U/L (4-35); Albumin Level 2.1 g/dL (3.5-5.1); Alkaline Phosphatase 93 U/L (38-126); Anion Gap 6 mmol/L (8-16); Aspartate Amino Transferase 92 U/L (14-36); Bilirubin,Total 2.2 mg/dL (0.2-1.3); Blood Urea Nitrogen 4 mg/dL (7-17); Calcium 6.3 mg/dL (8.4-10.2); Carbon Dioxide 22 mmol/L (22-30); Chloride 113 mmol/L (98-107); Estimated CRCL calculation 99 ml/min; Estimated Glomerular Filt Rate > 60; Glucose 131 mg/dL (65-105); Lipase 163 U/L (23-300); Potassium 3.6 mmol/L (3.4-5.0); Sodium 141 mmol/L (137-145)
[2020-09-06 22:13] LABS: Anion Gap 9 mmol/L (8-16); Blood Urea Nitrogen 4 mg/dL (7-17); Calcium 6.2 mg/dL (8.4-10.2); Carbon Dioxide 20 mmol/L (22-30); Chloride 110 mmol/L (98-107); Estimated CRCL calculation 99 ml/min; Estimated Glomerular Filt Rate > 60; Glucose 189 mg/dL (65-105); Magnesium 1.3 mg/dL (1.6-2.3); Potassium 3.9 mmol/L (3.4-5.0); Sodium 139 mmol/L (137-145)
[2020-09-06 22:31] LABS: INR 1.8; Partial Thromboplastin Time 31.8 SECONDS (22.3-36.8); Prothrombin Time 21.2 Seconds (11.1-14.7)
[2020-09-06 22:47] LABS: Fibrinogen 137 mg/dl (215-510)
[2020-09-06 22:48] LABS: D Dimer 4.51 ug/mL (<0.48)
[2020-09-07] VITALS (49 sets, daily range): BP systolic 91–124; BP diastolic 46–88; PULSE 86–134; RESP 20–27; TEMP 35.7–37.9; O2SAT 100; BMI 31.7
[2020-09-07] MEDS: CALCIUM GLUCONATE 1,000 MG/10 ML VIAL 1000 MG IV PUSH (00:35)
[2020-09-07] MEDS: MAGNESIUM SULF 2 GM/WATER 50ML 2 GM/50 ML BAG IVPB (00:40)
[2020-09-07] MEDS: ALBUMIN HUMAN 25% 25 GM/100 ML 100 ML IVPB (01:31)
[2020-09-07] MEDS: NOREPINEPHRINE 8 MG/D5W 250 ML 8 MG/250 ML BAG 56.25 MG IV CONT ×5 (01:42→21:16)
[2020-09-07 04:24] LABS: Basophils Percent Auto 0.4 % (0.2-1.2); Eosinophils Percent Auto 0.1 % (0-4.4); Hemoglobin 7.5 g/dL (12.0-15.0); Immature Granulocyte Percent A 0.9 % (0-0.5); Lymphocytes Absolute Auto 1.29 K/mm3 (0.9-3.2); Lymphocytes Percent Auto 11.5 % (18.3-44.2); Mean Corpuscular HGB Conc 34.1 g/dl (32-36); Mean Corpuscular Hemoglobin 31.3 pg (26-34); Mean Corpuscular Volume 91.7 fl (80-100); Mean Platelet Volume 10.4 fl (7.4-10.4); Monocytes Absolute Auto 0.8 K/mm3 (0.1-0.6); Monocytes Percent Auto 7.1 % (2.6-8.5); Platelet Count Result 124 k/mm3 (150-375); White Blood Count 11.3 K/mm3 (4.5-10.0)
[2020-09-07 04:36] LABS: Alanine Aminotransferase 57 U/L (4-35); Albumin Level 2.2 g/dL (3.5-5.1); Alkaline Phosphatase 71 U/L (38-126); Anion Gap 7 mmol/L (8-16); Aspartate Amino Transferase 167 U/L (14-36); Bilirubin,Total 2.8 mg/dL (0.2-1.3); Blood Urea Nitrogen 6 mg/dL (7-17); Calcium 6.5 mg/dL (8.4-10.2); Carbon Dioxide 22 mmol/L (22-30); Chloride 107 mmol/L (98-107); Estimated CRCL calculation 99 ml/min; Estimated Glomerular Filt Rate > 60; Glucose 198 mg/dL (65-105); Magnesium 1.7 mg/dL (1.6-2.3); Phosphorus 2.8 mg/dL (2.5-4.5); Potassium 3.6 mmol/L (3.4-5.0); Sodium 136 mmol/L (137-145)
[2020-09-07 04:39] LABS: INR 1.9; Prothrombin Time 22.2 Seconds (11.1-14.7)
[2020-09-07 04:40] LABS: Partial Thromboplastin Time 35.3 SECONDS (22.3-36.8)
[2020-09-07 04:56] LABS: D Dimer 4.29 ug/mL (<0.48)
[2020-09-07 04:59] LABS: Lactic Acid Reflex 4.2 mmol/L (0.7-2.1)
[2020-09-07 05:11] LABS: Alveolar/Arterial O2 Gradient 191.7 mmHg; Base Excess ABG -3.5 mEq/l (+/-2.0); Carboxyhemoglobin 0.2 % THb (0-2.0); Fractional Inspired Oxygen 50 %; HCO3 ABG 19.7 mEq/l (22.0-26.0); Methemoglobin ABG 0.6 %THb (0-1.5); Oxygen Content ABG 11.7 %vol (16.0-22.0); Oxygen Saturation ABG 98.8 % (95.0-100.0); Oxyhemoglobin 96.7 % THb (90.0-100.0); PCO2 ABG 28.8 mmHg (35.0-45.0); PO2 ABG 132.4 mmHg (80.0-100.0); PO2 FiO2 Ratio Arterial Blood 2.65 %; Reduced Hemoglobin 2.5 %THb (0-5.0); Total Hemoglobin 8.4 g/dL (12.0-18.0); pH ABG 7.454 (7.350-7.450)
[2020-09-07 05:13] LABS: Arterial Blood Gas PEEP 5 cmH2O; Arterial Blood Gas Vent Mode ASSIST CONTROL; Arterial Blood Gas Ventilator rate 24 /MIN; Device VENTILATOR; Modified Allen's Test Unable to perform; Site Drawn RIGHT RADIAL
[2020-09-07 05:14] LABS: Arterial Blood Gas Tidal Volume 350 ml
[2020-09-07] MEDS: CENTRAL LINE FLUSH 10 ML IV PUSH ×4 (05:39→21:18)
--- NOTE | 2020-09-07 06:13 | WPDANESEPP ---
Anes - Eval Pre Procedure Procedure: Operation Date: 09/06/20 17:55 Proposed Procedures p Esophagogastroduodenoscopy - Rogers Corea MD Date/Time: 09/07/20 06:13 Pre Op Diagnosis: Upper GI Bleed w hemorrhagic shock Patient Data Age: 45 Gender: F Height: 1.6 m Weight: 81.2 kg Last Vital Signs Temp 37.7 C H 09/07/20 06:00 Pulse 112 H 09/07/20 06:02 Resp 24 H 09/07/20 06:02 BP 96/60 L 09/07/20 06:00 Pulse Ox 100 09/07/20 06:00 Allergies Allergy/AdvReac Type Severity Reaction Status Date / Time azithromycin Allergy Intermediate Hives / Verified 09/06/20 16:25 Red Face erythromycin base Allergy Unknown Rash Verified 09/06/20 16:25 Penicillins Allergy Unknown Swelling Verified 09/06/20 16:25 Home Medications Medication Instructions Recorded Confirmed Type nadolol 20 mg PO DAILY 09/07/20 09/07/20 History Laboratory Tests 09/06/20 09/06/20 09/06/20 15:26 16:59 20:06 WBC RBC Hgb Hct MCV MCH MCHC RDW Plt Count MPV Immature Gran % (Auto) Neut % (Auto) Lymph % (Auto) [place] % (Auto) Eos % (Auto) Baso % (Auto) Lymph # (Auto) [place] # (Auto) Eos # (Auto) Baso # (Auto) Abs Immat Gran (auto) Absolute Neuts (auto) Absolute Nucleated RBC Nucleated RBC % PT INR APTT Fibrinogen D-Dimer Puncture Site Right radial ABG pH 7.246 L* (7.350-7.450) ABG pCO2 37.2 mmHg mmHg (35.0-45.0) ABG pO2 332.4 mmHg H mmHg (80.0-100.0) ABG PO2/FiO2 Ratio 3.32 % % ABG HCO3 15.8 mEq/l L mEq/l (22.0-26.0) ABG O2 Saturation 99.7 % % (95.0-100.0) ABG O2 Content 14.1 %vol L %vol (16.0-22.0) ABG Base Excess -10.6 mEq/l mEq/l (+/-2.0) A-a Gradient 343.4 mmHg mmHg Oxyhemoglobin 98.0 % THb % THb (90.0-100.0) Carboxyhemoglobin 0.1 % THb % THb (0-2.0) Methemoglobin 0.6 %THb %THb (0-1.5) Reduced Hemoglobin 1.3 %THb %THb (0-5.0) Total Hemoglobin 9.6 g/dL L g/dL (12.0-18.0) O2 Delivery Device Ventilator O2 Liters/Min Not Reportable Minute Volume Not Reportable Vent Rate 24 /MIN /MIN Vent Mode Assist control FiO2 100 % % Tidal Volume 350 ml ml PEEP 5 cmH2O cmH2O Peak Inspir Pressure Not Reportable Pressure Support Not Reportable Sodium Potassium Chloride Carbon Dioxide Anion Gap BUN Creatinine Estim Creat Clear Calc Estimated GFR Glucose Lactic Acid Calcium Phosphorus Magnesium Total Bilirubin AST ALT Alkaline Phosphatase Total Protein Albumin Lipase Urine Color Alize (Yellow) Urine Appearance Cloudy H (Clear) Urine pH 6.0 (5.0-9.0) Ur Specific [place] 1.019 (1.001-1.035) Urine Protein 2+ mg/dL H mg/dL (Negative) Urine Glucose (UA) 1+ mg/dL H mg/dL (Negative) Urine Ketones Negative mg/dL mg/dL (Negative) Ur Blood (Man) Negative (Negative) Urine Nitrate Negative (Negative) Urine Bilirubin 1+ H (Negative) Urine Urobilinogen 4.0 mg/dL H mg/dL (<2.0) Leukocyte Esterase Rfl Trace CINTHIA/UL H CINTHIA/UL (Negative) Urine RBC 11-20 /hpf H /hpf (0-2) Urine WBC 0-3 /hpf /h
[2020-09-07] MEDS: LACTATED RINGERS 1,000 ML 125 ML IV CONT (06:52)
[2020-09-07] MEDS: SODIUM CHLORIDE 0.9% IV 250 ML 30 ML IV CONT (06:55)
[2020-09-07 07:20] LABS: Reflex Lactic Acid Yes or No Add Lactic
--- NOTE | 2020-09-07 09:49 | PM.IMPN ---
Progress Note: A&P Assessment and Plan (1) Hemorrhagic shock: Code(s): R57.8 - Other shock Status: Acute Assessment and Plan: Patient with hemorrhagic shock related to bleeding from a large Toshia-Haas tear which was injected and clipped x5 on 09/06. She has received FFP x1, Plt x1, FFP x1 and PRBC 3U (with 4th pending). Currently on norepinephrine and vasopressin - wean as BP allows. Lactic acid level 4.2; will repeat. Continue Protonix and octreotide drips. Providers have spoken with Dr. Fuchs (Gastroenterology) at [facility] and he/she is aware of the situation. Should her condition deteriorate, they will keep her case file open for possible transfer. Appreciate valve mechanic input. (2) Acute respiratory failure: Code(s): J96.00 - Acute respiratory failure, unspecified whether with hypoxia or hypercapnia Status: Acute Assessment and Plan: PH was 7.25 with normal pCO2 on admission after intubation. Related to hemorrhagic shock. Lactic acid level 4.2 related to hypoperfusion. Repeat blood gas improved. Patient remains stable on mechanical ventilation. Wean vent when clinically stable. (3) Upper gastrointestinal hemorrhage: Code(s): K92.2 - Gastrointestinal hemorrhage, unspecified Status: Acute Assessment and Plan: Status post urgent EGD per Dr. Corea showed a large Toshia-Haas tear which was injected and clipped x5 on 09/06. As above. Will need repeat EGD to ensure no ulcer or bleeding from varices. Monitor HH closely and transfuse as needed. (4) Acute blood loss anemia: Code(s): D62 - Acute posthemorrhagic anemia Status: Acute Assessment and Plan: Runs in the 11 range from last year. Hemoglobin on admission was 8.9 and has dropped to 7.5. Currently receiving her 3rd unit packed red blood cells with a 4th unit pending. Serial H&H after transfusion. Monitor closely and transfuse as needed. (5) Toshia-Haas tear: Code(s): K22.6 - Gastro-esophageal laceration-hemorrhage syndrome Status: Acute Assessment and Plan: Judith underwent an emergency EGD for UGI bleed and found to have a large Toshia-Haas tear which was injected and clipped x5. Most likely the source of the acute blood loss. She will need repeat EGD to ensure no other etiology to explain the acute blood loss such as variceal bleeding or peptic ulcer. Appreciate GI input. (6) Cirrhosis: Code(s): K74.60 - Unspecified cirrhosis of liver Status: Acute Assessment and Plan: Patient with known history of alcoholic cirrhosis. No recent abdominal imaging such as CT or ultrasound here. HCV RNA levels were negative in 2019. No coags listed. Will order coags. AST 92 on admission but this is chronically elevated. Albumin 2.1 on admission but has been relatively normal last year. Patient with known esophageal varices. Unclear if she has ascites chronically. Continue supportive care. Check abdominal ultrasound when patient is more stable. (7) Thrombocytopenia: Code(s): D69.6 - Thrombocytopenia, unspecified Status: Acute Assessment and Plan: Patient with chronic thrombocytopenia with values here ranging from 20-50,000. Platelet count on admission here was 113,000 and stable on repeat most likely due to transfusion. Her platelet count most likely will drop. Follow closely and transfuse as needed. (8) Esophageal varices: Code(s): I85.00 - Esophageal varices without bleeding Status: Acute Assessment and Plan: Patient with a history of esophageal varices status post banding in March 2020. As above. (9) DVT prophylaxis: Code(s): Z29.9 - Encounter for prophylactic measures, unspecified Status: Acute Assessment and Plan: SCDs Subjective Date/time seen: 09/07/20 09:49 Interval history: Date of service 09/07 45 old female history alcoholic cirrhosis, hepa
[2020-09-07 10:27] LABS: Hematocrit 23.9 % (37.0-47.0); Hemoglobin 8.4 g/dL (12.0-15.0)
[2020-09-07 10:38] LABS: Lactic Acid 2.8 mmol/L (0.7-2.1)
[2020-09-07 10:45] LABS: INR 1.7; Prothrombin Time 20.3 Seconds (11.1-14.7)
[2020-09-07 10:46] LABS: Partial Thromboplastin Time 34.1 SECONDS (22.3-36.8)
[2020-09-07] MEDS: MIDAZOLAM HCL (*CRX) 2 MG/2 ML VIAL IV PUSH (11:07)
[2020-09-07] MEDS: ALBUMIN HUMAN 25% 12.5 GM/50ML 50 ML IVPB ×3 (11:08→23:12)
--- NOTE | 2020-09-07 11:13 | SUR.OPER ---
SEDATION GIVEN BY REKHA SORTING AND FOLDING SUPERVISOR
[2020-09-07] MEDS: FENTANYL 2,500MCG/NS250ML(*CRX 2,500 MCG/250 ML BAG 15 MCG IV CONT (11:14)
--- NOTE | 2020-09-07 14:35 | PC.NURSE ---
Black from [facility] for PICC placement called, chest xray report given verbal results to Black. [facility] PICC line nurse says OK to use PICC line
--- NOTE | 2020-09-07 14:41 | WPDCNINT ---
Assessment and Plan Assessment and plan (1) Acute respiratory failure: Code(s): J96.00 - Acute respiratory failure, unspecified whether with hypoxia or hypercapnia Status: Acute Assessment and Plan: Patient was intubated and placed on mechanical ventilation due to shock, hematemesis, airway protection -currently on 50% FiO2 and peep of 5, will wean FiO2 as tolerated -patient sedated with fentanyl and Versed, is awake, follows simple commands (2) Toshia-Haas tear: Code(s): K22.6 - Gastro-esophageal laceration-hemorrhage syndrome Status: Acute Assessment and Plan: Hematemesis, severe anemia Repeat EGD on 09/07/2020 showed Toshia-Haas tear at the gastric cardia but no more ongoing bleeding or bruising. The clips in place and in good position. No gastric varices or erosions were seen no ulcers or masses were visualized the bulb in the 2nd portion of duodenum was normal with no ulcers or masses esophagus was examined mucosa was normal otherwise with no esophageal varices -continue octreotide and PPI infusion per GI -appreciate GI following the patient closely (3) Thrombocytopenia: Code(s): D69.6 - Thrombocytopenia, unspecified Status: Acute Assessment and Plan: Thrombocytopenia could be consumptive versus hepatic disease -patient did receive 1 unit of platelets overnight. This is stable this morning and will continue to monitor (4) Acute blood loss anemia: Code(s): D62 - Acute posthemorrhagic anemia Status: Acute Assessment and Plan: Acute blood loss likely related to hematemesis severe anemia. -patient has been transfused 5 units of packed RBCs 1 unit of FFP, 1 unit of platelets,and 1 unit of cryoprecipitate -H&H q.6 hours (5) Cirrhosis: Code(s): K74.60 - Unspecified cirrhosis of liver Status: Acute Assessment and Plan: Patient with history of cirrhosis, follows with the [facility] GI physician Dr LANGFORD who is aware of the situation. Should her condition deteriorate they will keep her case file open for possible transfer. (6) Hemorrhagic shock: Code(s): R57.8 - Other shock Status: Acute Assessment and Plan: Patient with large Toshia-Haas tear of the gastric cardia, with significant bleeding, requiring multiple blood product -patient currently on Levophed and vasopressin, will continue to monitor closely -added albumin very to decrease done min due to cirrhosis Additional Plan Discussed with patient and family and updated them with her condition and plan of care Code status: Full code Critical care time spent: 45 minutes Due to a high probability of clinically significant, life threatening deterioration, the patient required my highest level of preparedness to intervene emergently and I personally spent this critical care time directly and personally managing the patient. This critical care time included obtaining a history; examining the patient; pulse oximetry; ordering and review of studies; arranging urgent treatment with development of a management plan; evaluation of patient's response to treatment; frequent reassessment; and discussions with other providers. It was exclusive of separately billable procedures and treating other patients and teaching time. Please see Assessment and Plan section and the rest of the note for further information on patient assessment and treatment Organic Search Lead Consult Note Consult date: 09/07/20 Time Seen: 07:09 Reason for consult: GI bleed, Toshia-Haas tear of the stomach, hemorrhagic shock, severe acute anemia HPI: Maryjo Rey is a 45 year old female with past medical history of alcohol abuse, cirrhosis, hepatitis-C, esophageal varices banding in March 2020, GERD, history of seizures thrombocytopenia presented the ED on 09/06/2019 with abdominal pain and hematemesis. Patient also complained of lightheadedness and melena. He was found to be anemic w
[2020-09-07 17:39] LABS: Hematocrit 21.3 % (37.0-47.0); Hemoglobin 7.5 g/dL (12.0-15.0)
[2020-09-07] MEDS: LACTATED RINGERS 1,000 ML 75 ML IV CONT (18:20)
[2020-09-07 21:43] LABS: Hematocrit 22.4 % (37.0-47.0)
[2020-09-08] VITALS (31 sets, daily range): BP systolic 101–126; BP diastolic 47–96; PULSE 75–111; RESP 20–24; TEMP 36.8–37.5; O2SAT 88–100
[2020-09-08] MEDS: NOREPINEPHRINE 8 MG/D5W 250 ML 8 MG/250 ML BAG 46.88 MG IV CONT (01:51)
[2020-09-08] MEDS: CENTRAL LINE FLUSH 10 ML IV PUSH ×4 (01:52→16:01)
[2020-09-08 04:03] LABS: Base Excess ABG 0.2 mEq/l (+/-2.0); Carboxyhemoglobin 0.2 % THb (0-2.0); Fractional Inspired Oxygen 30 %; HCO3 ABG 22.6 mEq/l (22.0-26.0); Methemoglobin ABG 0.3 %THb (0-1.5); Oxygen Content ABG 13.1 %vol (16.0-22.0); Oxygen Saturation ABG 96.5 % (95.0-100.0); Oxyhemoglobin 94.5 % THb (90.0-100.0); PO2 ABG 75.8 mmHg (80.0-100.0); PO2 FiO2 Ratio Arterial Blood 2.53 %; Total Hemoglobin 9.8 g/dL (12.0-18.0)
[2020-09-08 04:06] LABS: Arterial Blood Gas PEEP 5 cmH2O; Arterial Blood Gas Tidal Volume 350 ml; Arterial Blood Gas Vent Mode CMV; Arterial Blood Gas Ventilator rate 24 /MIN; Device VENTILATOR; Modified Allen's Test Pass; Site Drawn LEFT RADIAL
[2020-09-08] MEDS: ALBUMIN HUMAN 25% 12.5 GM/50ML 50 ML IVPB ×3 (04:41→17:31)
[2020-09-08] MEDS: FENTANYL 2,500MCG/NS250ML(*CRX 2,500 MCG/250 ML BAG 10 MCG IV CONT (06:13)
[2020-09-08 06:57] LABS: Basophils Percent Auto 0.8 % (0.2-1.2); Eosinophils Absolute Auto 0.3 K/mm3 (0-0.3); Eosinophils Percent Auto 4.7 % (0-4.4); Immature Granulocyte Absolute 0.02 K/mm3 (0.00-0.031); Immature Granulocyte Percent A 0.4 % (0-0.5); Immature Platelet Fraction Pct 2.9 % (0.9-11.2); Lymphocytes Absolute Auto 0.69 K/mm3 (0.9-3.2); Mean Corpuscular HGB Conc 34.7 g/dl (32-36); Mean Corpuscular Hemoglobin 31.1 pg (26-34); Mean Corpuscular Volume 89.6 fl (80-100); Mean Platelet Volume 10.4 fl (7.4-10.4); Monocytes Absolute Auto 0.7 K/mm3 (0.1-0.6); Monocytes Percent Auto 12.4 % (2.6-8.5); Neutrophils Absolute Auto 3.7 K/mm3 (1.3-6.7); Neutrophils Percent Auto 68.7 % (45.5-73.1); Platelet Count Result 41 k/mm3 (150-375); Red Blood Count 2.22 M/mm3 (4.2-5.4); Red Cell Distribution Width 16.2 % (11.5-14.5); White Blood Count 5.3 K/mm3 (4.5-10.0)
[2020-09-08 07:11] LABS: Lactic Acid Reflex 2.5 mmol/L (0.7-2.1)
[2020-09-08 07:26] LABS: Hematocrit 19.9 % (37.0-47.0); Hemoglobin 6.9 g/dL (12.0-15.0)
[2020-09-08 07:29] LABS: Alanine Aminotransferase 88 U/L (4-35); Albumin Level 2.5 g/dL (3.5-5.1); Alkaline Phosphatase 55 U/L (38-126); Anion Gap 4 mmol/L (8-16); Aspartate Amino Transferase 293 U/L (14-36); Bilirubin,Total 4.3 mg/dL (0.2-1.3); Blood Urea Nitrogen 8 mg/dL (7-17); Calcium 6.7 mg/dL (8.4-10.2); Carbon Dioxide 26 mmol/L (22-30); Chloride 102 mmol/L (98-107); Estimated CRCL calculation 156 ml/min; Estimated Glomerular Filt Rate > 60; Glucose 123 mg/dL (65-105); Lipase 99 U/L (23-300); Magnesium 1.5 mg/dL (1.6-2.3); Potassium 3.2 mmol/L (3.4-5.0); Sodium 132 mmol/L (137-145)
[2020-09-08 07:30] LABS: Phosphorus < 1.0 mg/dL (2.5-4.5)
[2020-09-08] MEDS: LACTATED RINGERS 1,000 ML 75 ML IV CONT ×2 (08:01→20:12)
[2020-09-08 08:44] LABS: Immature Platelet Fraction Pct 2.1 % (0.9-11.2); Mean Platelet Volume 10.5 fl (7.4-10.4); Platelet Count Result 40 k/mm3 (150-375)
[2020-09-08 08:53] LABS: INR 1.7; Prothrombin Time 20.8 Seconds (11.1-14.7)
[2020-09-08 08:54] LABS: Magnesium 1.4 mg/dL (1.6-2.3); Partial Thromboplastin Time 39.9 SECONDS (22.3-36.8)
[2020-09-08 08:56] LABS: D Dimer 3.77 ug/mL (<0.48)
[2020-09-08 08:59] LABS: Fibrinogen 154 mg/dl (215-510)
[2020-09-08] MEDS: MAGNESIUM SULF 2 GM/WATER 50ML 2 GM/50 ML BAG IVPB (09:44)
[2020-09-08] MEDS: SODIUM CHLORIDE 0.9% IV 250 ML 30 ML IV CONT ×2 (09:46→11:44)
[2020-09-08 09:54] LABS: Reflex Lactic Acid Yes or No Add Lactic
[2020-09-08] MEDS: NOREPINEPHRINE 8 MG/D5W 250 ML 8 MG/250 ML BAG 24.38 MG IV CONT (10:11)
[2020-09-08] MEDS: VASOPRESSIN INJ 100 UNITS in DEXTROSE 5% 95 ML IV CONT (10:13)
--- NOTE | 2020-09-08 11:18 | PCDIET ---
ICU Rounding Note: Patient remains NPO on vent. Possible transfer to outside hospital discussed. Last recorded weight is 96.7kg which is increased from last review. +I/O. Decreased urine output noted. Bowel Motility: Abdomen firm and distended, per RN. +Bowel sounds. No BM as of yet. Labs Reviewed: Hgb (6.9), Hct (19.9), Glu (123), Cr (0.4), K (3.2), Na (132), Alb (2.5), José Miguel Ca (7.9), PO4 (<1.0), Mg (1.4) Meds Noted: Albumin, Rocephin, Levophed, Fentanyl, LR at 75mL/hr, Protonix, Magnesium Sulfate, Versed, K-Phos, Vasopressin Additional Notes: No documented skin breakdown. Following daily in ICU rounds. Assessing/reassessing every 3 days.
[2020-09-08] MEDS: TUBING, BLOOD PLUM PUMP TUBING 2 EACH XX (11:43)
--- NOTE | 2020-09-08 11:58 | WPDINTPN ---
Progress Note: A&P Assessment and Plan (1) Acute respiratory failure: Code(s): J96.00 - Acute respiratory failure, unspecified whether with hypoxia or hypercapnia Status: Acute Assessment and Plan: Patient was intubated and placed on mechanical ventilation due to shock, hematemesis, airway protection -currently on 30% FiO2 and peep of 5, will wean FiO2 as tolerated -patient sedated with fentanyl and Versed, (2) Toshia-Haas tear: Code(s): K22.6 - Gastro-esophageal laceration-hemorrhage syndrome Status: Acute Assessment and Plan: Hematemesis, severe anemia Repeat EGD on 09/07/2020 showed Toshia-Haas tear at the gastric cardia but no more ongoing bleeding or bruising. The clips in place and in good position. No gastric varices or erosions were seen no ulcers or masses were visualized the bulb in the 2nd portion of duodenum was normal with no ulcers or masses esophagus was examined mucosa was normal otherwise with no esophageal varices -will discontinue octreotide, continue PPI infusion -appreciate GI following the patient closely (3) Thrombocytopenia: Code(s): D69.6 - Thrombocytopenia, unspecified Status: Acute Assessment and Plan: Thrombocytopenia could be consumptive versus hepatic disease -patient did receive 1 unit of platelets overnight. This is stable this morning and will continue to monitor -platelet count this morning of 40, will transfuse 1 unit of platelets (4) Acute blood loss anemia: Code(s): D62 - Acute posthemorrhagic anemia Status: Acute Assessment and Plan: Acute blood loss likely related to hematemesis severe anemia. -patient has been transfused 5 units of packed RBCs 1 unit of FFP, 1 unit of platelets,and 1 unit of cryoprecipitate -H&H q.6 hours -patient dropped her hemoglobin to 6.9 this morning, transfusing 1 unit of packed RBC (5) Cirrhosis: Code(s): K74.60 - Unspecified cirrhosis of liver Status: Acute Assessment and Plan: Patient with history of cirrhosis, follows with the [facility] GI physician Dr LANGFORD who is aware of the situation. Should her condition deteriorate they will keep her case file open for possible transfer. -worsening LFTs and elevated bilirubin - patient has been accepted to the ICU at [facility], will transfer when bed is available (6) Hemorrhagic shock: Code(s): R57.8 - Other shock Status: Acute Assessment and Plan: Patient with large Toshia-Haas tear of the gastric cardia, with significant bleeding, requiring multiple blood product -patient currently on Levophed and vasopressin, will continue to monitor closely -added albumin Additional Plan Discussed with patient and family and updated them with her condition and plan of care Code status: Full code Critical care time spent: 33 minutes Due to a high probability of clinically significant, life threatening deterioration, the patient required my highest level of preparedness to intervene emergently and I personally spent this critical care time directly and personally managing the patient. This critical care time included obtaining a history; examining the patient; pulse oximetry; ordering and review of studies; arranging urgent treatment with development of a management plan; evaluation of patient's response to treatment; frequent reassessment; and discussions with other providers. It was exclusive of separately billable procedures and treating other patients and teaching time. Please see Assessment and Plan section and the rest of the note for further information on patient assessment and treatment Subjective Date/time seen: 09/08/20 11:58 Interval history: Reason for consult: GI bleed, Toshia-Haas tear of the stomach, hemorrhagic shock, severe acute anemia. Requiring multiple blood product -EGD done on 09/06/2020 and 09/07/2020 09/08/2020: Patient seen and examined ezio ivy
[2020-09-08 12:22] LABS: Ammonia 85 umol/L (9-30); Lactic Acid 1.1 mmol/L (0.7-2.1)
[2020-09-08] MEDS: POTASSIUM PHOS,M-BASIC-D-BASIC 20 MMOL in SODIUM CHLORIDE 0.9% IV 250 ML 62.5 MMOL IVPB (12:37)
--- NOTE | 2020-09-08 14:51 | WPDGIPROGNO ---
Progress Note: A&P Assessment and Plan (1) Toshia-Haas tear: Code(s): K22.6 - Gastro-esophageal laceration-hemorrhage syndrome Status: Acute Assessment and Plan: repeat EGD yesterday without signs of more bleeding, clips in place continue with iv protonix, octreotide discontinued (no signs of varices) (2) Acute blood loss anemia: Code(s): D62 - Acute posthemorrhagic anemia Status: Acute Assessment and Plan: she received total of 5 units prbc and other blood products (3) Hemorrhagic shock: Code(s): R57.8 - Other shock Status: Acute (4) Acute respiratory failure: Code(s): J96.00 - Acute respiratory failure, unspecified whether with hypoxia or hypercapnia Status: Acute Assessment and Plan: she was intubated to protect airway, by screw machine tool setter (5) Thrombocytopenia: Code(s): D69.6 - Thrombocytopenia, unspecified Status: Acute (6) Cirrhosis: Code(s): K74.60 - Unspecified cirrhosis of liver Status: Acute (7) DIC syndrome: Code(s): D65 - Disseminated intravascular coagulation [defibrination syndrome] Status: Acute Assessment and Plan: possible dic or decompensated cirrhosis (elevated d-dimer, low fibrinogen and worsening thrombocytopenia), on pressors primary team talked to screw machine tool setter at [facility] so she can be evaluated by her pollution control technician because worsening liver function and still critically ill, transfer in progress but awaiting for icu bed available Subjective Date/time seen: 09/08/20 14:51 Interval history: still on pressors and intubated, no signs of bleeding. NGT only bilious material no more coffee ground Review of Systems Review of Systems: All systems reviewed & are unremarkable except as noted in HPI and below Exam Const: Other: intubated and sedated, still ill HENMT: Other: ETT in place Eyes: Pupils: Equal, round and reactive pupils present Neck: Neck: supple Resp: Effort & Inspection: normal respiratory effort Auscultation: rhonchi Other: Diminished at bases Cardio: Rate: regular rate Rhythm: regular rhythm GI: Inspection: distended GI Palp: Yes Soft to palpation and No Tenderness to palpation present (GI) Auscultation: abnormal bowel sounds (Hypoactive bowel sounds) : Other: Zuluaga catheter in place Urinary Catheter: Urinary Catheter: patent and draining and urine dark Skin: General skin exam: no rashes or lesions noted Neuro: Other: Patient is intubated and sedated Extrem: General: normal to inspection, edema and pedal edema Psych: Other: Unable to assess at this time Objective Data Vital Signs Vital Signs: Vital Signs - 24 hr 09/07/20 15:40 09/07/20 16:00 09/07/20 16:22 Temperature 100.3 F H Pulse Rate 108 H 105 H 108 H Respiratory Rate 24 H Blood Pressure 107/48 L 109/60 107/48 L Pulse Oximetry 100 09/07/20 16:56 09/07/20 17:09 09/07/20 17:10 Temperature Pulse Rate 118 H 120 H 120 H Respiratory Rate 24 H 24 H Blood Pressure Pulse Oximetry 100 09/07/20 17:12 09/07/20 17:14 09/07/20 18:00 Temperature 100.3 F H Pulse Rate 120 H 120 H 116 H Respiratory Rate 24 H Blood Pressure 124/71 124/71 99/51 L Pulse Oximetry 100 09/07/20 18:22 09/07/20 19:43 09/07/20 19:46 Temperature Pulse Rate 117 H 117 H 108 H Respiratory Rate 24 H Blood Pressure Pulse Oximetry 100 09/07/20 20:00 09/07/20 20:10 09/07/20 21:16 Temperature 98.6 F Pulse Rate 112 H 101 H Respiratory Rate 24 H Blood Pressure 105/52 L 113/55 L Pulse Oximetry 100 100 09/07/20 22:00 09/07/20 23:12 09/07/20 23:14 Temperature 100.0 F H Pulse Rate 100 99 99 Respiratory Rate 24 H 24 H 24 H Blood Pressure 105/46 L Pulse Oximetry 100 09/07/20 23:15 09/07/20 23:16 09/08/20 00:00 Temperature 99.2 F Pulse Rate 101 H 99 99 Respiratory Rate 24 H Blood Pressure 116/71 120/67 Pulse Oximetry 100 100 09/08/20 00:05 09/08/20 01:51 0
[2020-09-08] MEDS: CENTRAL LINE FLUSH 20 ML IV PUSH (16:02)
[2020-09-08] MEDS: NOREPINEPHRINE 8 MG/D5W 250 ML 8 MG/250 ML BAG 18.75 MG IV CONT (20:11)
--- NOTE | 2020-09-15 14:07 | PM.TDS ---
Transfer Discharge Sum: Prov Provider Date of admission: 09/06/20 16:57 Primary care physician: RN HOSPITAL PHYSICIAN Admitting clinician: Maulik Pollard MD Consults: 09/06/20 16:58 Consult to Physician Routine Comment: Consulting Provider: Rajendra Dickens Reason for consultation: Hemorrhagic shock Has provider been notified: Yes Consult to Physician Routine Comment: Consulting Provider: Rogers Corea Reason for consultation: Upper GI bleed Has provider been notified: Yes DS: Admitting Diagnosis Admitting Diagnosis Admitting Diagnosis: GI bleed, Toshia-Haas tear of the stomach, hemorrhagic shock, severe acute anemia. DS: Discharge Diagnosis Discharge Diagnosis (1) Acute respiratory failure: Code(s): J96.00 - Acute respiratory failure, unspecified whether with hypoxia or hypercapnia Status: Acute Assessment and Plan: Patient was intubated and placed on mechanical ventilation due to shock, hematemesis, airway protection -currently on 30% FiO2 and peep of 5, will wean FiO2 as tolerated -patient sedated with fentanyl and Versed, (2) Toshia-Haas tear: Code(s): K22.6 - Gastro-esophageal laceration-hemorrhage syndrome Status: Acute Assessment and Plan: Hematemesis, severe anemia Repeat EGD on 09/07/2020 showed Toshia-Haas tear at the gastric cardia but no more ongoing bleeding or bruising. The clips in place and in good position. No gastric varices or erosions were seen no ulcers or masses were visualized the bulb in the 2nd portion of duodenum was normal with no ulcers or masses esophagus was examined mucosa was normal otherwise with no esophageal varices -will discontinue octreotide, continue PPI infusion -appreciate GI following the patient closely -patient continued to drop her hemoglobin, cold [facility] which she sees her supervisor facepiece line, discussed with vice president biostatistics with accepted the patient, patient will be transferred to [facility] once bed is available (3) Thrombocytopenia: Code(s): D69.6 - Thrombocytopenia, unspecified Status: Acute Assessment and Plan: Thrombocytopenia could be consumptive versus hepatic disease -patient did receive 1 unit of platelets overnight. This is stable this morning and will continue to monitor -platelet count this morning of 40, will transfuse 1 unit of platelets (4) Acute blood loss anemia: Code(s): D62 - Acute posthemorrhagic anemia Status: Acute Assessment and Plan: Acute blood loss likely related to hematemesis severe anemia. -patient has been transfused 5 units of packed RBCs 1 unit of FFP, 1 unit of platelets,and 1 unit of cryoprecipitate -H&H q.6 hours -patient dropped her hemoglobin to 6.9 this morning, transfusing 1 unit of packed RBC (5) Cirrhosis: Code(s): K74.60 - Unspecified cirrhosis of liver Status: Acute Assessment and Plan: Patient with history of cirrhosis, follows with the [facility] GI physician Dr LANGFORD who is aware of the situation. Should her condition deteriorate they will keep her case file open for possible transfer. -worsening LFTs and elevated bilirubin - patient has been accepted to the ICU at [facility], will transfer when bed is available (6) Hemorrhagic shock: Code(s): R57.8 - Other shock Status: Acute Assessment and Plan: Patient with large Toshia-Haas tear of the gastric cardia, with significant bleeding, requiring multiple blood product -patient currently on Levophed and vasopressin, will continue to monitor closely -added albumin Transfer Discharge Sum: Med Medications Active and Home Medications: Home Medications nadolol 20 mg PO DAILY 09/07/20 [History Confirmed 09/07/20] Transfer Discharge Sum: Hosp Hospital Course Hospital course: Maryjo Rey is a 45 year old female with significant past medical history of alcoho
== END 2020-09-08 21:00 | disposition short-term general hospital (02) | DRG 242 ==
LOC: ANHED 17:49 → ANHICU 09-07 08:18
PROVIDERS: Internal Medicine Gastroenterology; Physician Assistant; Admitting Provider Internal Medicine; Emergency Provider Emergency Medicine; Visit Provider Internal Medicine
PROC: 0DJ08ZZ Inspection of Upper Intestinal Tract, Via Natural or Artificial Opening Endoscopic (ICD-10-PCS; CPT 43235; principal; 2020-09-06 17:55)
DX: K22.6 Gastro-esophageal laceration-hemorrhage syndrome (principal); D62 Acute posthemorrhagic anemia; J96.00 Acute respiratory failure, unspecified whether with hypoxia or hypercapnia; R57.8 Other shock; K70.30 Alcoholic cirrhosis of liver without ascites; D69.6 Thrombocytopenia, unspecified; D65 Disseminated intravascular coagulation [defibrination syndrome]; F17.210 Nicotine dependence, cigarettes, uncomplicated; Z86.19 Personal history of other infectious and parasitic diseases
CPT/HCPCS: 31500; 36415; 36430; 36556; 36569; 36600; 51702; 71045; 74018; 80048; 80053; 81001; 82140; 82375; 82805; 83050; 83605; 83690; 83735; 84100; 85014; 85018; 85025; 85049; 85055; 85380; 85384; 85610; 85730; 86850; 86900; 86901; 86920; 86923; 94002; 94003; 96365; 96375; 99291; C1751; C9113; J0171; J0330; J0610; J0696; J1200; J2250; J2354; J2370; J2704; J3010; J3475; J7030; J7050; J7060; J7120; P9012; P9016; P9017; P9034; P9047

== ENCOUNTER 2020-09-18 12:06 | IRF | payer OTHER, SELFPAY ==
--- NOTE | ~2020-09-18 | XR_ITS ---
EXAMINATION: XR abdomen/kub 1V INDICATION: Abdominal pain TECHNIQUE: Supine views of the abdomen were obtained on 2 radiographs. COMPARISON: 09/07/2019 FINDINGS: No dilated loops of bowel are evident. The visualized osseous structures are unremarkable. Surgical projects in the gastroesophageal junction. IMPRESSION: 1. Unremarkable abdominal radiographs. Reviewed, dictated and finalized at location A. ORAL COUNSELOR
--- NOTE | 2020-09-18 12:28 | ADMGEN ---
This patient, Maryjo Rey, was admitted to [facility] Room 223-02. Patient/family oriented to hospital policies and general routines including ID bracelet, bed and alarms, visiting hours, pain management, procedures, bathroom and other care routines, personal items, smoking policy, room service/diet, and visiting hours. Information on how to activate the Rapid Response Team has been discussed. Patient/Family are encouraged to report perceived risks to care and to ask questions if they do not understand what they are told or what they should do.
[2020-09-18 12:38] VITALS: BP 93/53; PULSE 72; RESP 18; TEMP 36.7; O2SAT 99; BMI 30.5
--- NOTE | 2020-09-18 14:18 | WPDREHABHP ---
H&P: HPI History of Present Illness Date/Time: 09/18/20 14:18 Chief Complaint: acute respiratory failure with history of Toshia white tear Narrative: Maryjo Rey is a 45 year old femaleHISTORY OF PRESENT ILLNESS: 45 years old right-handed female has been admitted to rehab floor with the primary rehab impairment category of 15-pulmonary and etiological diagnosis of acute respiratory failure. The patient was seen [id number] on September 18, 2020 at 2:00 p.m. the patient is a 45 years old right-handed female with past medical history of H CV cirrhosis and prior IV drug use who presented to [facility] on September 06, 2020 with hematemesis. The patient was found to be in shock. She was intubated for airway protection,catheter placed for pressors. She was given IV fluids bolus and was started on Levophed and vasopressin. She received 2units of packed RBC, 1unit of platelets 1unit. 1Unit of fresh frozen plasma. She was also Started on IV proton pump inhibitor, octreotide drops, and IV ceftriaxone .she underwent an EGD on September 06, 2020 that showed no bleeding esophageal varices but did show a large Toshia white tear in the gastric cardia which was actively bleeding. Five clips were placed and epinephrine was injected. No gastric varices were identified. Hemodynamics improved after initial EGD and pressors were slowly weaned she required 1unit of packed RBCs and 5units of cryo on September 07, 2020. Repeat EGD on September 07, 2020 showed stable Toshia white tear with no active bleeding or oozing and clips were securely in place. She was continued on the IV PPI and IV ceftriaxone but the octreotide drops were stopped. given the patient's underlying cirrhosis and hepatology care at [facility], the patient was transferred to [facility] for further evaluation. Gastroenterology and hepatology were both consulted. Gastroenterology titrated down the lactulose, order liver ultrasound, and started the patient on nadolol 20 q.h.s.. Patient was extubated on September 12, 2020 and transferred out of ICU on September 13, 2020. The patient's hospitalization has been significant for electrolyte imbalances, respiratory failure, GI bleed, acute blood loss resulting in anemia, encephalopathy, and pain. Electrolyte imbalances are being monitored and repleted as necessary patient is now on room air, GI bleed contained and patient is hemodynamically stable, encephalopathy has resolved and the patient's pain is being controlled with oral analgesics the patient will not be placed on chemical DVT prophylaxis due to her GI bleed.# COVID-19 final results was negative on September 16, 2020 the patient has not traveled outside the [place] or had contact with someone who is ill that has traveled outside the [place] in the past 21 days the patient has not traveled to an area of the [place] that is experiencing known transmission of the Coronavirus and has not had close personal contact with anyone that has. The patient does not have a fever. The patient is not experiencing lower respiratory illness symptoms. # Therapy was initiated at the [facility] facility and the patient was transferred to us from [facility] on September 18, 2020 FALLS OR SURGERIES: the patient has had no major surgery in the last 100 days. The patient has had no falls in the last year. The patient has had no falls with injury in the past year. The patient's mother reports no falls and no major surgery in the past month PAST MEDICAL HISTORY: chronic HCV cirrhosis, esophageal varices, polyarthralgia. RGICAL HISTORY: Multiple EGDs+ esophageal varices banding SOCIAL HISTORY: current every day smoker. No current alcohol or drug abuse. FAMILY HISTORY: Not on file PRIOR LEVEL OF FUNCTION: Eating was [INDEPENDENT] Oral Care was [INDEPENDENT] Toileting Hygiene was [INDEPENDENT] Shower/Bathing was [INDEPENDENT] Upper Body Dressing was [INDEPENDENT] Lower Body Dressing
[2020-09-18 20:00] VITALS: O2SAT 99
[2020-09-18] MEDS: LACTULOSE 20 GM/30 ML UDC 30 GM PO (20:28)
[2020-09-18] MEDS: PANTOPRAZOLE 40 MG TABLET PO (20:44)
[2020-09-18 22:00] VITALS: BP 93/50; PULSE 73; RESP 18; TEMP 37.1; O2SAT 100
[2020-09-19 05:01] VITALS: BP 101/49; PULSE 71; RESP 18; TEMP 36.9; O2SAT 98
[2020-09-19 05:51] LABS: Basophils Absolute Auto 0.1 K/mm3 (0.0-0.1); Basophils Percent Auto 1.6 % (0.2-1.2); Eosinophils Absolute Auto 0.2 K/mm3 (0-0.3); Hematocrit 26.5 % (37.0-47.0); Hemoglobin 8.6 g/dL (12.0-15.0); Immature Granulocyte Absolute 0.03 K/mm3 (0.00-0.031); Immature Granulocyte Percent A 0.7 % (0-0.5); Immature Platelet Fraction Pct 7.4 % (0.9-11.2); Lymphocytes Absolute Auto 0.69 K/mm3 (0.9-3.2); Lymphocytes Percent Auto 15.4 % (18.3-44.2); Mean Corpuscular HGB Conc 32.5 g/dl (32-36); Mean Corpuscular Volume 92.3 fl (80-100); Mean Platelet Volume 11.5 fl (7.4-10.4); Monocytes Absolute Auto 0.5 K/mm3 (0.1-0.6); Monocytes Percent Auto 11.8 % (2.6-8.5); Neutrophils Percent Auto 66.5 % (45.5-73.1); Platelet Count Result 69 k/mm3 (150-375); Red Blood Count 2.87 M/mm3 (4.2-5.4); Red Cell Distribution Width 16.7 % (11.5-14.5); White Blood Count 4.5 K/mm3 (4.5-10.0)
[2020-09-19 06:04] LABS: Anion Gap 4 mmol/L (8-16); Blood Urea Nitrogen 5 mg/dL (7-17); Calcium 7.7 mg/dL (8.4-10.2); Carbon Dioxide 24 mmol/L (22-30); Chloride 107 mmol/L (98-107); Estimated CRCL calculation 119 ml/min; Estimated Glomerular Filt Rate > 60; Glucose 88 mg/dL (65-105); Potassium 3.7 mmol/L (3.4-5.0); Sodium 135 mmol/L (137-145)
[2020-09-19 08:00] VITALS: PULSE 71; RESP 18; O2SAT 98
[2020-09-19] MEDS: MULTIVITAMINS THERAPEUTIC TAB (*BKC) 1 TABLET PO (08:29)
[2020-09-19] MEDS: PANTOPRAZOLE 40 MG TABLET PO ×2 (08:29→19:54)
[2020-09-19] MEDS: FUROSEMIDE 20 MG TABLET PO (08:29)
[2020-09-19] MEDS: SPIRONOLACTONE 50 MG TABLET PO (08:29)
[2020-09-19] MEDS: LACTULOSE 20 GM/30 ML UDC 30 GM PO ×2 (08:29→19:55)
[2020-09-19 10:01] VITALS: PULSE 71
[2020-09-19] MEDS: nadoloL 20 MG TABLET PO (10:01)
[2020-09-19 14:00] VITALS: BP 112/55; PULSE 76; RESP 20; TEMP 37.1; O2SAT 100
--- NOTE | 2020-09-19 14:06 | PCSTNOTE ---
Bedside swallow evaluation is complete. Please see ST evaluation for details and recommendations.
--- NOTE | 2020-09-19 14:09 | WPDNEURORHBP ---
Subjective Date/time seen: 09/19/20 14:09 45 years old right-handed female with the diagnosis of acute respiratory failure in addition to multiple comorbid conditions as mentioned before has been involved in physical therapy and occupational therapy remains afebrile with temp of 36.9? pulse 71 respiration 18 pulse ox 98% on room air and a blood pressure of 101/49. WBC 4.5 with hemoglobin 8.6 platelet count 69 that definitely low though coming up protime 20.8 with INR of 1.7 D-dimer 3.77 a PTT 39.9, lytes normal with sodium 135 ammonia level 85. Continues to be involving the physical therapy and occupational therapy Review of Systems Review of Systems: All systems reviewed & are unremarkable except as noted in HPI and below Functional Status Ambulation Ability Ability to Ambulate 10 Feet: Minimum Assistance X 1 Ability to Ambulate 50 Feet With 2 Turns: Minimum Assistance X 1 Ability to Ambulate 150 Feet: Minimum Assistance X 1 Ambulation Assistive Devices: Walker, Wheeled Exam Const: General: cooperative and comfortable HENMT: Ears: hearing grossly normal bilaterally General nose exam: Normal external nose present and No nasal discharge present Face and sinus: normal facial exam Resp: Effort & Inspection: normal respiratory effort and able to speak in complete sentences Auscultation: clear to auscultation bilaterally Cardio: Rate: regular rate Rhythm: regular rhythm GI: Auscultation: normal bowel sounds Skin: General skin exam: no rashes or lesions noted Neuro: General: patient oriented x3 Cognition (Neuro): normal cognition Motor exam (neuro): 5/5 motor strength present throughout ( generally decreased) and Normal motor muscle tone present throughout Deep tendon reflexes (DTR's): Right triceps reflex intensity grade: 1+, Left triceps reflex intensity grade: 1+, Rt Biceps (C5, C6): 1+, Left biceps reflex intensity grade: 1+, Right brachioradialis reflex intensity grade: 1+, Left brachioradialis reflex intensity grade: 1+, Right patellar reflex intensity grade: 1+, Left patellar reflex intensity grade: 1+, Right ankle reflex intensity grade: 0 and Left ankle reflex intensity grade: 0 Plantar Reflex Responses: downgoing: bilateral Coordination: [id number] test normal Psych: Appearance: grossly normal Objective Data Vital Signs Vital Signs: Vital Signs - 24 hr 09/18/20 20:00 09/18/20 22:00 09/19/20 05:01 Temperature 37.1 C 36.9 C Pulse Rate 73 71 Respiratory Rate 18 18 Blood Pressure 93/50 L 101/49 L Pulse Oximetry 99 100 98 09/19/20 08:00 09/19/20 10:01 Temperature Pulse Rate 71 71 Respiratory Rate 18 Blood Pressure Pulse Oximetry 98 Intake/Output Intake/Output: Intake & Output 09/16/20 09/17/20 09/18/20 09/19/20 23:59 23:59 23:59 23:59 Intake Total 480 480 Balance 480 480 Meds/Results Medications: Active Medications Generic Name Dose Route Start Last Admin Trade Name Freq PRN Reason Stop Dose Admin Furosemide 20 mg 09/19/20 09:00 09/19/20 08:29 Furosemide 20 Mg Tablet PO 20 mg DAILY ANTONINO Administration Lactulose 30 gm 09/18/20 21:00 09/19/20 08:29 Lactulose 20 Gm/30 Ml Udc PO 30 gm Q12HR ANTONINO Administration Multivitamins Therapeutic 1 tablet 09/19/20 09:00 09/19/20 08:29 Multivitamins Therapeutic Tab (*Bkc) PO 1 tablet DAILY ANTONINO Administration Nadolol 20 mg 09/19/20 09:00 09/19/20 10:01 Nadolol 20 Mg Tablet PO 20 mg DAILY ANTONINO Administration Pantoprazole Sodium 40 mg 09/18/20 21:00 09/19/20 08:29 Pantoprazole 40 Mg Tablet PO 40 mg Q12HR ANTONINO Administration Spironolactone 50 mg 09/19/20 09:00 09/19/20 08:29 Spironolactone 50 Mg Tablet PO 50 mg DAILY ANTONINO Administration Labs Labs: Laboratory Results - last 24 hr 09/19/20 09/19/20 05:12 05:12 WBC 4.5 RBC 2.87 L Hgb 8.6 L Hct 26.5 L MCV 92.3 MCH 30.0 MCHC 32.5 RDW 16.7 H Plt Count 69 L D MPV 11.5 H Immature Gran % (
[2020-09-19 20:00] VITALS: PULSE 76; RESP 20; O2SAT 100
[2020-09-19 22:00] VITALS: BP 108/53; PULSE 75; RESP 18; TEMP 36.8; O2SAT 99
[2020-09-20 06:00] VITALS: BP 98/48; PULSE 74; RESP 18; TEMP 37.1; O2SAT 97
[2020-09-20 08:00] VITALS: PULSE 74; RESP 18; O2SAT 97
[2020-09-20 08:37] VITALS: PULSE 74
[2020-09-20] MEDS: PANTOPRAZOLE 40 MG TABLET PO ×2 (08:37→21:12)
[2020-09-20] MEDS: FUROSEMIDE 20 MG TABLET PO (08:37)
[2020-09-20] MEDS: nadoloL 20 MG TABLET PO (08:37)
[2020-09-20] MEDS: SPIRONOLACTONE 50 MG TABLET PO (08:37)
[2020-09-20] MEDS: MULTIVITAMINS THERAPEUTIC TAB (*BKC) 1 TABLET PO (08:38)
[2020-09-20] MEDS: LACTULOSE 20 GM/30 ML UDC 30 GM PO ×2 (08:38→21:12)
[2020-09-20 14:00] VITALS: BP 97/48; PULSE 79; RESP 18; TEMP 36.8; O2SAT 100
[2020-09-20 20:50] VITALS: BP 122/59; PULSE 74; RESP 18; TEMP 37; O2SAT 98
[2020-09-21 05:36] VITALS: BP 105/47; PULSE 74; RESP 20; TEMP 36.6; O2SAT 100
[2020-09-21 08:41] VITALS: PULSE 74
[2020-09-21] MEDS: PANTOPRAZOLE 40 MG TABLET PO ×2 (08:41→20:51)
[2020-09-21] MEDS: SPIRONOLACTONE 50 MG TABLET PO (08:41)
[2020-09-21] MEDS: MULTIVITAMINS THERAPEUTIC TAB (*BKC) 1 TABLET PO (08:41)
[2020-09-21] MEDS: LACTULOSE 20 GM/30 ML UDC 30 GM PO ×2 (08:41→20:51)
[2020-09-21] MEDS: FUROSEMIDE 20 MG TABLET PO (08:41)
[2020-09-21] MEDS: nadoloL 20 MG TABLET PO (08:41)
--- NOTE | 2020-09-21 10:41 | RPD ---
INDIVIDUALIZED PLAN OF CARE FOR Maryjo Rey Brief Synthesis of Pre-Admission Screen, Post-Admission Evaluation and Therapy Evaluations: The patient presents to rehab with deconditioning in the setting of a lengthy hospitalization from acute respiratory failure with hypoxia and a GI bleed. Comorbidities include acute encephalopathy, acute blood loss anemia, upper GI bleed, decompensated liver cirrhosis, thrombocytopenia, hematemesis, hemorrhagic shock, Toshia-Haas tear, hypokalemia, hypophosphatemia, and polyarthralgia. The complexity of the patient's medical management, nursing, and therapy needs require an inpatient rehab hospital stay with a physician-led interdisciplinary team approach. The patient?s needs will be best met in an intensive program vs. at a lower level of care. The patient requires physician services for medical oversight, management of medical complications in setting of present comorbidities, and pain management. The patient requires nursing services for anticoagulation therapy, DVT prophylactics, infection protection, medication management and education, and pressure relief. Deficits include:ADLs, Balance, Endurance, Family Training/Education, Mobility, Pain Management, ROM, Safety, Strength, Swallowing, and Transfers. Game Room Attendant/Case Management for: Discharge Planning and Patient/Family Counseling Physical Therapy: 5 days per week for 90 minutes. Treatments may include: Therapeutic Exercise, Gait Training, Neuromuscular Re-education, Transfer Training, Community Reintegration, Bed Mobility, Patient/Family Education, Wheelchair Mobility Group Therapy/Concurrent Therapy Rationales: -Improve attention span during functional activities in a distracted environment. -Enhance problem solving and/or adequate judgment skills during functional activities in a distracted environment. -Promote increased safety awareness in a distracted environment to reduce fall risk with functional tasks, transfers, and ambulation to allow a more safe, self-sufficient return to the home environment. -Improve dynamic balance skills to promote safety and independence with functional activities in a distracted environment for maximum gain. Occupational Therapy: 5 days per week for 90 minutes. Treatments may include: Therapeutic Exercise, Therapeutic Activity, Cognitive Training, Self-Care Transfer Training, Community Reintegration, Home Management, Patient/Family Education, Wheelchair Mobility Training, Energy Conservation Training Group Therapy/Concurrent Therapy Rationales: -Allow therapist to observe and teach generalization and carry-over of skills learned in individual therapy. -Enhance problem solving and sequencing skills during therapeutic activities in a distracted environment. -Promote increased safety awareness in a realistic setting to reduce fall risk with functional tasks due to visual and verbal distractions. -Increase functional level with ADLs, ADL transfers and use of adaptive equipment through therapeutic activities with others while promoting safety to allow a more safe, self-sufficient return home. Medical Prognosis: Good Anticipated Length of Stay: 10 days Rehab Goals: Eating Goal: 06-Independent Oral Hygiene Goal: 06-Independent Toileting Hygiene Goal: 06-Independent Shower/Bathe Self Goal: 06-Independent Upper Body Dressing Goal: 06-Independent Lower Body Dressing Goal: 06-Independent Putting On/Taking Off Footwear Goal: 06-Independent Rolling Left and Right Goal: 06-Independent Sit to Lying Goal: 06-Independent Lying to Sitting on Side of Bed Goal: 06-Independent Sit to Stand Goal: 06-Independent Chair/Ppy-oi-[id number] Transfer Goal: 06-Independent Toilet Transfer Goal: 06-Independent Car Transfer Goal: 06-Independent Walk 10' Goal: 06-Independent Walk 50' with Two Turns Goal: 06-Independent Walk 150' Goal: 06-Independent Walk 10' on Uneven Surface Goal: 06-Independent 1 Step (Curb) Goal: 06-Independent 4 Steps Goal: 06-Indep
[2020-09-21 13:06] VITALS: BMI 30.5
--- NOTE | 2020-09-21 13:41 | PCNSR ---
On 09/21/20, the student, Marcy Mcelroy, provided care and completed [facility] documentation on this patient. I have reviewed the student's documentation and agree with the findings.
[2020-09-21 14:00] VITALS: BP 102/62; PULSE 74; RESP 20; TEMP 37.1; O2SAT 100
--- NOTE | 2020-09-21 17:28 | WPDNEURORHBP ---
Subjective Date/time seen: 09/21/20 17:28 45 years old with diagnosis of acute respiratory failure in addition to multiple comorbid conditions has been actively involved in a physical therapy and occupational therapy has no specific complaint except generalized abdominal discomfort with no vomiting or diarrhea. Humble is 37.1 pulse 74 respiration 20 pulse ox 100 blood pressure 102/62 Review of Systems Review of Systems: All systems reviewed & are unremarkable except as noted in HPI and below Functional Status Ambulation Ability Ability to Ambulate 10 Feet: Contact Guard Ability to Ambulate 50 Feet With 2 Turns: Contact Guard Ability to Ambulate 150 Feet: Contact Guard Ambulation Assistive Devices: None and Walker, Wheeled Transfers Ability Ability to Transfer In/Out of Chair: Standby Assistance Exam Const: General: cooperative, comfortable and no acute distress HENMT: Head: normocephalic Neck: Neck: full ROM and no lymphadenopathy Resp: Effort & Inspection: normal respiratory effort Cardio: Rate: regular rate Rhythm: regular rhythm GI: Percussion: Yes normal to percussion Auscultation: normal bowel sounds Skin: General skin exam: no rashes or lesions noted Neuro: General: patient oriented x3 Cranial nerves: Yes CN's II-XII intact bilaterally Speech: normal speech Motor exam (neuro): 5/5 motor strength present throughout and Abnormal muscle tone present Sensory Exam: Sensory deficit (Neuro) Coordination: [id number] test normal Psych: Appearance: grossly normal Objective Data Vital Signs Vital Signs: Vital Signs - 24 hr 09/20/20 20:50 09/21/20 05:36 09/21/20 08:41 Temperature 37.0 C 36.6 C Pulse Rate 74 74 74 Respiratory Rate 18 20 Blood Pressure 122/59 L 105/47 L Pulse Oximetry 98 100 09/21/20 14:00 Temperature 37.1 C Pulse Rate 74 Respiratory Rate 20 Blood Pressure 102/62 Pulse Oximetry 100 Intake/Output Intake/Output: Intake & Output 09/18/20 09/19/20 09/20/20 09/21/20 23:59 23:59 23:59 23:59 Intake Total 480 720 760 480 Balance 480 720 760 480 Meds/Results Medications: Active Medications Generic Name Dose Route Start Last Admin Trade Name Freq PRN Reason Stop Dose Admin Furosemide 20 mg 09/19/20 09:00 09/21/20 08:41 Furosemide 20 Mg Tablet PO 20 mg DAILY ANTONINO Administration Lactulose 30 gm 09/18/20 21:00 09/21/20 08:41 Lactulose 20 Gm/30 Ml Udc PO 30 gm Q12HR ANTONINO Administration Multivitamins Therapeutic 1 tablet 09/19/20 09:00 09/21/20 08:41 Multivitamins Therapeutic Tab (*Bkc) PO 1 tablet DAILY ANTONINO Administration Nadolol 20 mg 09/19/20 09:00 09/21/20 08:41 Nadolol 20 Mg Tablet PO 20 mg DAILY ANTONINO Administration Pantoprazole Sodium 40 mg 09/18/20 21:00 09/21/20 08:41 Pantoprazole 40 Mg Tablet PO 40 mg Q12HR ANTONINO Administration Spironolactone 50 mg 09/19/20 09:00 09/21/20 08:41 Spironolactone 50 Mg Tablet PO 50 mg DAILY ANTONINO Administration Progress Note: A&P Assessment and Plan (1) Acute respiratory failure: Code(s): J96.00 - Acute respiratory failure, unspecified whether with hypoxia or hypercapnia Status: Acute (2) DIC syndrome: Code(s): 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 - Disseminated intravascular coagulation [defibrination syndrome] Status: Acute (3) DVT prophylaxis: Code(s): Z29.9 - Encounter for prophylactic measures, unspecified Status: Acute (4) Toshia-Haas tear: Code(s): K22.6 - Gastro-esophageal laceration-hemorrhage syndrome Status: Acute (5) Thrombocytopenia: Code(s): D69.6 - Thrombocytopenia, unspecified Status: Acute (6) Esophageal varices: Code(s): I85.00 - Esophageal varices without bleeding Status: Acute (7) Acute blood loss anemia: Code(s): D62 - Acute posthemorrhagic anemia Status: Acute (8) Cirrhosis: Code(s): K74.60 - Unspecified cirrhosis of liver Status: Acute (9) Person unde
[2020-09-21 20:13] VITALS: BP 99/53; PULSE 55; RESP 18; TEMP 37.1; O2SAT 100
[2020-09-22 05:25] VITALS: BP 86/43; PULSE 70; RESP 18; TEMP 36.9; O2SAT 98
[2020-09-22 05:35] VITALS: BP 98/50
[2020-09-22] MEDS: SPIRONOLACTONE 50 MG TABLET PO (08:18)
[2020-09-22] MEDS: PANTOPRAZOLE 40 MG TABLET PO ×2 (08:18→20:23)
[2020-09-22 08:19] VITALS: PULSE 70
[2020-09-22] MEDS: nadoloL 20 MG TABLET PO (08:19)
[2020-09-22] MEDS: MULTIVITAMINS THERAPEUTIC TAB (*BKC) 1 TABLET PO (08:19)
[2020-09-22] MEDS: FUROSEMIDE 20 MG TABLET PO (08:20)
[2020-09-22] MEDS: LACTULOSE 20 GM/30 ML UDC 30 GM PO ×2 (08:20→20:23)
[2020-09-22 11:03] VITALS: PULSE 76; O2SAT 100
--- NOTE | 2020-09-22 11:12 | WPDNEURORHBP ---
Subjective Date/time seen: 09/22/20 11:12 45 years old with acute respiratory failure in addition to multiple comorbid condition has been involved the physical therapy and occupational therapy on today's visit she is complaining of abdominal discomfort again I will get the flat plate because it could be more accumulation of the ascitic fluid Review of Systems Review of Systems: All systems reviewed & are unremarkable except as noted in HPI and below Functional Status Ambulation Ability Ability to Ambulate 10 Feet: Contact Guard Ability to Ambulate 50 Feet With 2 Turns: Contact Guard Ability to Ambulate 150 Feet: Contact Guard Ambulation Assistive Devices: None and Walker, Wheeled Transfers Ability Ability to Transfer In/Out of Chair: Standby Assistance Exam Const: General: cooperative, comfortable and no acute distress Nutritional Appearance: average body habitus Limitations: other limitations HENMT: Head: normocephalic Ears: hearing grossly normal bilaterally Face and sinus: normal facial exam Eyes: General: appearance normal, both eyes and all related structures Resp: Effort & Inspection: normal respiratory effort Auscultation: clear to auscultation bilaterally Cardio: Rate: regular rate GI: Auscultation: normal bowel sounds Skin: General skin exam: no rashes or lesions noted Neuro: General: patient oriented x3 Cognition (Neuro): normal cognition Speech: normal speech Motor exam (neuro): Abnormal motor strength present ( generally decreased strength) Sensory Exam: Sensory deficit (Neuro) Deep tendon reflexes (DTR's): Right triceps reflex intensity grade: 1+, Left triceps reflex intensity grade: 1+, Rt Biceps (C5, C6): 1+, Left biceps reflex intensity grade: 1+, Right brachioradialis reflex intensity grade: 1+, Left brachioradialis reflex intensity grade: 1+, Right patellar reflex intensity grade: 1+ and Left patellar reflex intensity grade: 1+ Plantar Reflex Responses: downgoing: bilateral Coordination: [id number] test normal Objective Data Vital Signs Vital Signs: Vital Signs - 24 hr 09/21/20 14:00 09/21/20 20:13 09/22/20 05:25 Temperature 37.1 C 37.1 C 36.9 C Pulse Rate 74 55 L 70 Respiratory Rate 20 18 18 Blood Pressure 102/62 99/53 L 86/43 L Pulse Oximetry 100 100 98 09/22/20 05:35 09/22/20 08:19 Temperature Pulse Rate 70 Respiratory Rate Blood Pressure 98/50 L Pulse Oximetry Intake/Output Intake/Output: Intake & Output 09/19/20 09/20/20 09/21/20 09/22/20 23:59 23:59 23:59 23:59 Intake Total 720 760 720 240 Balance 720 760 720 240 Meds/Results Medications: Active Medications Generic Name Dose Route Start Last Admin Trade Name Geovanna PRN Reason Stop Dose Admin Furosemide 20 mg 09/19/20 09:00 09/22/20 08:20 Furosemide 20 Mg Tablet PO 20 mg DAILY ANTONINO Administration Lactulose 30 gm 09/18/20 21:00 09/22/20 08:20 Lactulose 20 Gm/30 Ml Udc PO 30 gm Q12HR ANTONINO Administration Multivitamins Therapeutic 1 tablet 09/19/20 09:00 09/22/20 08:19 Multivitamins Therapeutic Tab (*Bkc) PO 1 tablet DAILY ANTONINO Administration Nadolol 20 mg 09/19/20 09:00 09/22/20 08:19 Nadolol 20 Mg Tablet PO 20 mg DAILY ANTONINO Administration Pantoprazole Sodium 40 mg 09/18/20 21:00 09/22/20 08:18 Pantoprazole 40 Mg Tablet PO 40 mg Q12HR ANTONINO Administration Spironolactone 50 mg 09/19/20 09:00 09/22/20 08:18 Spironolactone 50 Mg Tablet PO 50 mg DAILY ANTONINO Administration Progress Note: A&P Assessment and Plan (1) DIC syndrome: Code(s): D65 - Disseminated intravascular coagulation [defibrination syndrome] Status: Acute (2) Acute respiratory failure: Code(s): J96.00 - Acute respiratory failure, unspecified whether with hypoxia or hypercapnia Status: Acute (3) DVT prophylaxis: Code(s): Z29.9 - Encounter for prophylactic measures, unspecified Status: Acute (4) Toshia-Haas tear: Code(
--- NOTE | 2020-09-22 12:44 | PC.NURSE ---
Patient c/o nausea, compazine ordered as well as KUB and Tylenol for pain. Checked BP and in left arm was 80/43 and per patient states always lower and in right arm is 96/54.
[2020-09-22 12:50] LABS: Anion Gap 3 mmol/L (8-16); Blood Urea Nitrogen 6 mg/dL (7-17); Calcium 8.4 mg/dL (8.4-10.2); Carbon Dioxide 25 mmol/L (22-30); Chloride 108 mmol/L (98-107); Estimated CRCL calculation 119 ml/min; Estimated Glomerular Filt Rate > 60; Glucose 107 mg/dL (65-105); Potassium 3.9 mmol/L (3.4-5.0); Sodium 136 mmol/L (137-145)
[2020-09-22] MEDS: PROCHLORPERAZINE MALEATE 5 MG TABLET PO (12:59)
[2020-09-22 14:00] VITALS: BP 112/64; PULSE 72; RESP 20; TEMP 36.6; O2SAT 97
[2020-09-22 22:00] VITALS: BP 91/47; PULSE 76; RESP 16; TEMP 36.8; O2SAT 100
[2020-09-23 06:00] VITALS: BP 89/49; PULSE 74; RESP 16; TEMP 37.1; O2SAT 93
[2020-09-23] MEDS: MULTIVITAMINS THERAPEUTIC TAB (*BKC) 1 TABLET PO (09:06)
[2020-09-23] MEDS: FUROSEMIDE 20 MG TABLET PO (09:07)
[2020-09-23] MEDS: LACTULOSE 20 GM/30 ML UDC 30 GM PO ×2 (09:07→21:33)
[2020-09-23] MEDS: SPIRONOLACTONE 50 MG TABLET PO (09:07)
[2020-09-23] MEDS: PANTOPRAZOLE 40 MG TABLET PO ×2 (09:07→21:36)
[2020-09-23 10:14] VITALS: PULSE 74
[2020-09-23 14:00] VITALS: BP 104/62; PULSE 80; RESP 20; TEMP 36.9; O2SAT 100
--- NOTE | 2020-09-23 14:34 | WPDNEURORHBP ---
Subjective Date/time seen: 09/23/20 14:34 45 years old with acute respiratory failure in addition to multiple comorbid conditions she had been complaining of mild abdominal discomfort abdominal flat plate was obtained is no evidence of ascitic fluid is afebrile , respirations 16 blood pressure 89 / 49 on Review of Systems Review of Systems: All systems reviewed & are unremarkable except as noted in HPI and below Functional Status Ambulation Ability Ability to Ambulate 10 Feet: Independent Ability to Ambulate 50 Feet With 2 Turns: Independent Ability to Ambulate 150 Feet: Independent Ambulation Assistive Devices: None Transfers Ability Ability to Transfer In/Out of Chair: Independent Exam Const: General: cooperative and comfortable Orientation/consciousness: patient oriented x3 HENMT: Head: normocephalic General nose exam: Normal external nose present and No nasal discharge present Eyes: General: appearance normal, both eyes and all related structures Neck: Neck: full ROM Resp: Effort & Inspection: normal respiratory effort Auscultation: clear to auscultation bilaterally Cardio: Rate: regular rate Rhythm: regular rhythm Neuro: General: patient oriented x3 Cranial nerves: Yes CN's II-XII intact bilaterally Cognition (Neuro): normal cognition Speech: normal speech Motor exam (neuro): Abnormal motor strength present Deep tendon reflexes (DTR's): Right triceps reflex intensity grade: 1+, Left triceps reflex intensity grade: 1+, Rt Biceps (C5, C6): 1+, Left biceps reflex intensity grade: 1+, Right brachioradialis reflex intensity grade: 1+, Left brachioradialis reflex intensity grade: 1+, Right patellar reflex intensity grade: 1+, Left patellar reflex intensity grade: 1+, Right ankle reflex intensity grade: 1+ and Left ankle reflex intensity grade: 1+ Plantar Reflex Responses: downgoing: bilateral Coordination: [id number] test normal Psych: Appearance: grossly normal Objective Data Vital Signs Vital Signs: Vital Signs - 24 hr 09/22/20 22:00 09/23/20 06:00 09/23/20 10:14 Temperature 36.8 C 37.1 C Pulse Rate 76 74 74 Respiratory Rate 16 16 Blood Pressure 91/47 L 89/49 L Pulse Oximetry 100 93 Intake/Output Intake/Output: Intake & Output 09/20/20 09/21/20 09/22/20 09/23/20 23:59 23:59 23:59 23:59 Intake Total 760 720 720 480 Balance 760 720 720 480 Meds/Results Medications: Active Medications Generic Name Dose Route Start Last Admin Trade Name Freq PRN Reason Stop Dose Admin Acetaminophen 650 mg 09/22/20 12:43 Acetaminophen 325 Mg Tablet PO Q6H PRN Mild Pain (1-3) or Fever Furosemide 20 mg 09/19/20 09:00 09/23/20 09:07 Furosemide 20 Mg Tablet PO 20 mg DAILY ANTONINO Administration Lactulose 30 gm 09/18/20 21:00 09/23/20 09:07 Lactulose 20 Gm/30 Ml Udc PO 30 gm Q12HR ANTONINO Administration Multivitamins Therapeutic 1 tablet 09/19/20 09:00 09/23/20 09:06 Multivitamins Therapeutic Tab (*Bkc) PO 1 tablet DAILY ANTONINO Administration Nadolol 10 mg 09/24/20 09:00 Nadolol 10 Mg Tablet PO QAM ANTONINO Pantoprazole Sodium 40 mg 09/18/20 21:00 09/23/20 09:07 Pantoprazole 40 Mg Tablet PO 40 mg Q12HR ANTONINO Administration Prochlorperazine Maleate 5 mg 09/22/20 12:22 09/22/20 12:59 Prochlorperazine Maleate 5 Mg Tablet PO 5 mg Q6H PRN Administration Nausea And Vomiting Spironolactone 50 mg 09/19/20 09:00 09/23/20 09:07 Spironolactone 50 Mg Tablet PO 50 mg DAILY ANTNOINO Administration Radiology Results: ITS Impressions Abdomen X-Ray 09/22/20 12:44 IMPRESSION: 1. Unremarkable abdominal radiographs. Progress Note: A&P Assessment and Plan (1) DIC syndrome: Code(s): D65 - Disseminated intravascular coagulation [defibrination syndrome] Status: Acute (2) Acute respiratory failure: Code(s): J96.00 - Acute respiratory failure, unspecified whether with hypoxia or hypercapnia Stat
[2020-09-23 20:40] VITALS: PULSE 69; RESP 16; O2SAT 99
[2020-09-23 22:00] VITALS: BP 91/45; PULSE 69; RESP 16; TEMP 37.2; O2SAT 99
[2020-09-24 06:00] VITALS: BP 90/42; PULSE 78; RESP 18; TEMP 37; O2SAT 98
[2020-09-24 08:00] VITALS: PULSE 78; RESP 18; O2SAT 98
[2020-09-24] MEDS: MULTIVITAMINS THERAPEUTIC TAB (*BKC) 1 TABLET PO (09:23)
[2020-09-24] MEDS: PANTOPRAZOLE 40 MG TABLET PO ×2 (09:23→20:02)
[2020-09-24 09:24] VITALS: PULSE 78
[2020-09-24] MEDS: SPIRONOLACTONE 50 MG TABLET PO (09:24)
[2020-09-24] MEDS: FUROSEMIDE 20 MG TABLET PO (09:24)
[2020-09-24] MEDS: LACTULOSE 20 GM/30 ML UDC 30 GM PO ×2 (09:24→20:02)
[2020-09-24] MEDS: nadoloL 10 MG TABLET PO (09:24)
[2020-09-24 14:00] VITALS: BP 101/57; PULSE 68; RESP 20; TEMP 36.4; O2SAT 100
--- NOTE | 2020-09-24 14:09 | WPDNEURORHBP ---
Subjective Date/time seen: 09/24/20 14:09 45 years old lady will be discharged tomorrow has been doing very well in the physical therapy and occupational therapy and also has no specific complaints today, there is no new lab today and also she is afebrile with pulse of 78 respiration 18 pulse ox 98% on the room air blood pressure is 90/42 has been running somewhat soft Review of Systems Review of Systems: All systems reviewed & are unremarkable except as noted in HPI and below Functional Status Ambulation Ability Ability to Ambulate 10 Feet: Independent Ability to Ambulate 50 Feet With 2 Turns: Independent Ability to Ambulate 150 Feet: Independent Ambulation Assistive Devices: None Transfers Ability Ability to Transfer In/Out of Chair: Independent Exam Const: General: cooperative, healthy appearing, comfortable and no acute distress Nutritional Appearance: average body habitus Limitations: no limitations HENMT: Head: normocephalic Ears: hearing grossly normal bilaterally General nose exam: Normal external nose present Face and sinus: normal facial exam Mouth: Yes Normal oral and palatal mucosa present Eyes: General: appearance normal, both eyes and all related structures Neck: Neck: full ROM Chest: Chest palpation & inspection: normal inspection of the chest Resp: Effort & Inspection: normal respiratory effort Auscultation: clear to auscultation bilaterally Cardio: Rate: regular rate Rhythm: regular rhythm GI: Auscultation: normal bowel sounds Neuro: General: patient oriented x3 Cranial nerves: Yes CN's II-XII intact bilaterally Cognition (Neuro): normal cognition Speech: normal speech Gait exam (Neuro): Normal gait present Motor exam (neuro): 5/5 motor strength present throughout Sensory Exam: Sensory deficit (Neuro) Deep tendon reflexes (DTR's): Right triceps reflex intensity grade: 1+, Left triceps reflex intensity grade: 1+, Rt Biceps (C5, C6): 1+, Left biceps reflex intensity grade: 1+, Right brachioradialis reflex intensity grade: 1+, Left brachioradialis reflex intensity grade: 1+, Right patellar reflex intensity grade: 1+, Left patellar reflex intensity grade: 1+, Right ankle reflex intensity grade: 1+ and Left ankle reflex intensity grade: 1+ Plantar Reflex Responses: downgoing: bilateral Objective Data Vital Signs Vital Signs: Vital Signs - 24 hr 09/23/20 20:40 09/23/20 22:00 09/24/20 06:00 Temperature 37.2 C 37.0 C Pulse Rate 69 69 78 Respiratory Rate 16 16 18 Blood Pressure 91/45 L 90/42 L Pulse Oximetry 99 99 98 09/24/20 08:00 09/24/20 09:24 Temperature Pulse Rate 78 78 Respiratory Rate 18 Blood Pressure Pulse Oximetry 98 Intake/Output Intake/Output: Intake & Output 09/21/20 09/22/20 09/23/20 09/24/20 23:59 23:59 23:59 23:59 Intake Total 720 720 720 240 Balance 720 720 720 240 Meds/Results Medications: Active Medications Generic Name Dose Route Start Last Admin Trade Name Freq PRN Reason Stop Dose Admin Acetaminophen 650 mg 09/22/20 12:43 Acetaminophen 325 Mg Tablet PO Q6H PRN Mild Pain (1-3) or Fever Furosemide 20 mg 09/19/20 09:00 09/24/20 09:24 Furosemide 20 Mg Tablet PO 20 mg DAILY ANTONINO Administration Lactulose 30 gm 09/18/20 21:00 09/24/20 09:24 Lactulose 20 Gm/30 Ml Udc PO 30 gm Q12HR ANTONINO Administration Multivitamins Therapeutic 1 tablet 09/19/20 09:00 09/24/20 09:23 Multivitamins Therapeutic Tab (*Bkc) PO 1 tablet DAILY ANTONINO Administration Nadolol 10 mg 09/24/20 09:00 09/24/20 09:24 Nadolol 10 Mg Tablet PO 10 mg QAM ANTONINO Administration Pantoprazole Sodium 40 mg 09/18/20 21:00 09/24/20 09:23 Pantoprazole 40 Mg Tablet PO 40 mg Q12HR ANTONINO Administration Prochlorperazine Maleate 5 mg 09/22/20 12:22 09/22/20 12:59 Prochlorperazine Maleate 5 Mg Tablet PO 5 mg Q6H PRN Administration Nausea And Vomiting Spironolactone 50 mg 09/19/20 09:00 09/24/20 09:24 Spirono
[2020-09-24 20:35] VITALS: PULSE 77; RESP 18; O2SAT 100
[2020-09-24 21:47] VITALS: BP 102/53; PULSE 77; RESP 18; TEMP 36.8; O2SAT 100
[2020-09-25 04:52] VITALS: BP 107/56; PULSE 79; RESP 18; TEMP 36.8; O2SAT 99
[2020-09-25 08:00] VITALS: PULSE 79; RESP 18; O2SAT 99
[2020-09-25] MEDS: SPIRONOLACTONE 50 MG TABLET PO (08:36)
[2020-09-25] MEDS: PANTOPRAZOLE 40 MG TABLET PO (08:36)
[2020-09-25 08:38] VITALS: PULSE 79
[2020-09-25] MEDS: nadoloL 10 MG TABLET PO (08:38)
[2020-09-25] MEDS: FUROSEMIDE 20 MG TABLET PO (08:38)
[2020-09-25] MEDS: LACTULOSE 20 GM/30 ML UDC 30 GM PO (08:38)
[2020-09-25] MEDS: MULTIVITAMINS THERAPEUTIC TAB (*BKC) 1 TABLET PO (08:39)
--- NOTE | 2020-09-28 11:38 | PM.DS ---
DS: Admitting Diagnosis Admitting Diagnosis Admitting Diagnosis: acute respiratory failure with history luciano white tear DS: Summary Hospital Course Hospital Course: stable with no fall or injury Time Spent with Patient Time attestation: ADMADMISSION:45 years old right-handed female admitted to the rehab floor with primary rehab impairment category of 15 / Pulmonary and etiological diagnosis of acute respiratory failure with ongoing history of 1. Cirrhosis of the liver 2. Hepatitis-C with previous drug use intravenously 3. Gastric pheresis for which clipping was done. 4. Luciano white here 5. No history of COVID exposure. at the time of admission her QIM were as follows. Eating [Set Up Only] Oral Care substantial or maximal assistance Toileting Hygiene substantial or maximal assistance Shower/Bathing substantial or maximal assistance Upper Body Dressing substantial or maximal assistance Lower Body Dressing substantial or maximal assistance Donning/[place] Footwear set up Rolling Left and Right set up Sit to Lying set up Lying to Sitting set up Sit to Stand partial assistance Bed to Chair Transfers substantial or maximal assistance Toilet Transfers substantial or maximal assistance Car Transfers partial assistance Walking 10' partial assistance Walking 50' with Two Turns partial assistance Walking 150' partial assistance Curb or Step partial assistance 4 Steps partial assisted 12 Steps partial assistance Picking Up Object partial assistance [Wheelchair Mobility 50'] not applicable [Wheelchair Mobility 150'] not applicable GOALS: Eating [INDEPENDENT] Oral Care [INDEPENDENT] Toileting Hygiene [INDEPENDENT] Shower/Bathing [INDEPENDENT] Upper Body Dressing [INDEPENDENT] Lower Body Dressing [INDEPENDENT] Donning/[place] Footwear [INDEPENDENT] Rolling Left and Right [INDEPENDENT] Sit to Lying [INDEPENDENT] Lying to Sitting [INDEPENDENT] Sit to Stand [INDEPENDENT] Bed to Chair Transfers [INDEPENDENT] Toilet Transfers [INDEPENDENT] Car Transfers [INDEPENDENT] Walking 10' [INDEPENDENT] Walking 50' with Two Turns [INDEPENDENT] Walking 150' [INDEPENDENT] Curb or Step [INDEPENDENT] 4 Steps [INDEPENDENT] 12 Steps [INDEPENDENT] Picking Up Object [INDEPENDENT] [Wheelchair Mobility 50'] not applicable [Wheelchair Mobility 150'] not applicable DISCHARGE PERFORMANCE: Eating [INDEPENDENT] Oral Care [INDEPENDENT] Toileting Hygiene [INDEPENDENT] Shower/Bathing [INDEPENDENT] Upper Body Dressing [INDEPENDENT] Lower Body Dressing [INDEPENDENT] Donning/[place] Footwear [INDEPENDENT] Rolling Left and Right [INDEPENDENT] Sit to Lying [INDEPENDENT] Lying to Sitting [INDEPENDENT] Sit to Stand [INDEPENDENT] Bed to Chair Transfers [INDEPENDENT] Toilet Transfers [INDEPENDENT] Car Transfers [INDEPENDENT] Walking 10' [INDEPENDENT] Walking 50' with Two Turns [INDEPENDENT] Walking 150' [INDEPENDENT] Curb or Step [INDEPENDENT] 4 Steps [INDEPENDENT] 12 Steps [INDEPENDENT] Picking Up Object [INDEPENDENT] [Wheelchair Mobility 50'] not applicable [Wheelchair Mobility 150'] not applicable # during the hospitalization no other consultants were involved, she was actively involved in the physical therapy and occupational therapy, during the initial portion of the hospitalization she complained of abdominal discomfort which was evaluated accordingly, her abdominal x-rays were normal her labs remained stable though she had low hemoglobin [place] 8.6 [place] [address], her INR was 1.7 with D-dimer of 3.77 and fibrin Ogen 154. She was able to ambulate up to 150ft independently with no assistive device and was also able to transfer in and out of chair independently. Throughout the hospitalization she had no falls or injuries. She was discharged to her home on September 25, 2020 Eating [Set Up Only] Oral Care [] Toileting Hygiene [] Shower/Bathing [] Upper Body Dressing [] Lower Body Dressing [] Donning/[place] Footwear [] Rolling Left and
== END 2020-09-25 13:00 | disposition home or self-care (01) | DRG 949 ==
PROVIDERS: Admitting Provider Psychiatry & Neurology Neurology; PCP Family Medicine; Visit Provider Psychiatry & Neurology Neurology
DX: Z48.815 Encounter for surgical aftercare following surgery on the digestive system (principal); K22.6 Gastro-esophageal laceration-hemorrhage syndrome; I85.00 Esophageal varices without bleeding; K74.60 Unspecified cirrhosis of liver; D69.6 Thrombocytopenia, unspecified; R10.9 Unspecified abdominal pain; F17.210 Nicotine dependence, cigarettes, uncomplicated; Z86.19 Personal history of other infectious and parasitic diseases
CPT/HCPCS: 36415; 74018; 80048; 85025; 85055; 92610; 97110; 97116; 97162; 97166; 97530; 97535; A9270

== ENCOUNTER 2021-06-24 08:08 | Emergency (ER) | payer OTHER, SELFPAY ==
--- NOTE | ~2021-06-24 | XR_ITS ---
EXAMINATION: XR tibia fibula RT 2V INDICATION: Right leg pain and swelling TECHNIQUE: Two views of the right ankle are obtained. COMPARISON: None available FINDINGS: Bone alignment is normal. There is no fracture. There is mild osteoarthritis of the knee. S oft tissue swelling is noted in the distal leg. IMPRESSION: 1. Soft tissue swelling of the distal leg without acute osseous abnormality identified. Reviewed, dictated and finalized at location B. UCTION DRILLING MACHINE OPERATOR IMPRESSION: 1. Soft tissue swelling of the distal leg without acute osseous abnormality teresa ntified.
--- NOTE | ~2021-06-24 | XR_ITS ---
EXAMINATION: XR ankle RT min 3V INDICATION: Right ankle pain and swelling TECHNIQUE: Four views of the right ankle are obtained. COMPARISON: None available FINDINGS: There is no fracture, dislocation, or subluxation. Mild osteoarthritis is noted in the midf oot. There are posterior and plantar calcaneal enthesophytes. There is mild soft tissue swelling of t he distal leg. IMPRESSION: 1. Mild soft tissue swelling without acute osseous abnormality. Reviewed, dictated and finalized at location B. UNTING SOFTWARE SPECIALIST
--- NOTE | ~2021-06-24 | XR_ITS ---
EXAMINATION: XR sacrum coccyx min 2V INDICATION: Low back pain after fall TECHNIQUE: Three views of the sacrum and coccyx are obtained. COMPARISON: None available FINDINGS: Bone alignment is normal. There is no fracture. The soft tissues are unremarkable. IMPRESSION: 1. No acute osseous abnormality. Reviewed, dictated and finalized at location B. MACHINE OPERATOR
--- NOTE | ~2021-06-24 | XR_ITS ---
EXAMINATION: XR lumbar spine min 4V DATE: 06/24/2021 10:05 INDICATION: Low back pain TECHNIQUE: Anteroposterior, lateral, and bilateral oblique views of the lumbar spine were obtained. COMPARISON: None. FINDINGS: There is no fracture, dislocation, or subluxation. The vertebral body heights are maintaine d. There is mild loss of intervertebral disc space height at L1-2 and L4-5. Small degenerative osteop hytes project from the anterior endplates of multiple vertebral bodies. IMPRESSION: 1. Mild lumbar spondylosis without acute findings. Reviewed, dictated and finalized at location B. TENANCE WELDER
[2021-06-24 08:14] VITALS: BP 129/82; PULSE 96; RESP 18; TEMP 36.9; O2SAT 100
--- NOTE | 2021-06-24 09:51 | PC.NURSE ---
Pt taken to Xray
[2021-06-24] MEDS: IBUPROFEN 600 MG TABLET PO (10:09)
[2021-06-24] MEDS: ORPHENADRINE CITRATE 100 MG TABLET.ER PO (10:11)
[2021-06-24 10:57] VITALS: BP 127/84; PULSE 96; RESP 18; O2SAT 100
--- NOTE | 2021-06-24 11:04 | ED.FALL ---
HPI - Fall General Chief Complaint: Fall Stated Complaint: fall down stairs Time Seen by Provider: 06/24/21 09:13 Source: patient Mode of arrival: ambulatory Limitations: no limitations History of Present Illness HPI Narrative: Patient is a 45-year-old female with chief complaint of pain to her low back and buttock and right lower leg and ankle that she sustained at approx 2 AM this morning when she slipped going down a wooden staircase and slid down 12 stairs on her buttocks. She denies rolling or hitting her head. She reports bruising and swelling to both areas. She denies neck, upper back , or abdominal pain or injury. She denies feer, chills, sob, chest pain, headache, dizziness. Related Data Allergies Allergy/AdvReac Type Severity Reaction Status Date / Time azithromycin Allergy Intermediate Hives / Verified 06/24/21 08:26 Red Face erythromycin base Allergy Unknown Rash Verified 06/24/21 08:26 Penicillins Allergy Unknown Swelling Verified 06/24/21 08:26 Review of Systems Review of Systems: CONSTITUTIONAL: Denies fever, chills, or sweats. EYES: Denies visual changes, redness, or discharge. ENT: Denies rhinorrhea, congestion, sore throat, or otalgia. CARDIOVASCULAR: Denies chest pain, palpitations, or edema. RESPIRATORY: Denies cough or dyspnea. GASTROINTESTINAL: Denies abdominal pain, nausea, vomiting, or diarrhea. GENITOURINARY: Denies dysuria or hematuria. SKIN: Reports ecchymosis denies rash or itching. MUSCULOSKELETAL: Reports buttocks and right leg pain Denies back pain, myalgia, or joint pain NEUROLOGIC: Denies headache, numbness, dizziness, or weakness. PSYCHIATRIC: Denies anxiety or depression. [facility] Past Medical History Medical History [place] esophagus Cirrhosis DIC syndrome Esophageal varices Banded at [facility] in March 2020. Gastroesophageal reflux disease Hepatitis C Patient reportedly completed treatment for same. History of alcohol abuse She has abstained from using alcohol since November 2019. 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 History of seizures Thrombocytopenia Surgical History Surgical History History of tonsillectomy Family History Family History Other Cancer Social History Social History Social History: The patient is currently living in [place] with her mother. 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 Former alcoholic, dry since November 2019. She is a smoker, approximately 6 cigarettes a day. She designates her mother Lexi Valiente as her surrogate decision maker and she wishes to be a full code. Her ex-, Ramior Harris, is her healthcare power of personal injury attorney and she wishes for both him and her mother to make medical decisions on her behalf should she be unable to do so. She wishes to be a full code. Smoking packs per day: 0.3 Smoking cigarettes per day: 6.0 Years smoked: 20 Smoking pack-years: 6.00 Smoking status: Current every day smoker Tobacco type: cigarettes Second hand tobacco smoke exposure: Yes Alcohol intake: former Substance use: never Substance use type: IV drugs Gender identity (if verbalized by the patient): Female Spiritual care concerns: No Exam Narrative: GENERAL: Well-appearing, well-nourished, and in no acute distress. HEAD: Normocephalic, atraumatic. EYES: PERRLA and EOMI. NECK: Supple. No adenopathy or masses. ROM intact, no pain. BACK: Tenderness with palpation of low back diffusely. Bruising over buttocks, R buttock. ROM intact. CHEST: Clear to auscultation. No respiratory distress. No wheezes rales or rhonchi HEART: Regular rate and rhythm. No murmur heard. Normal peripheral pulses. ABDOMEN: Soft, nontender
== END 2021-06-24 11:31 | disposition home or self-care (01) ==
PROVIDERS: Emergency Provider Emergency Medicine
DX: S30.0XXA Contusion of lower back and pelvis, initial encounter (principal); S39.012A Strain of muscle, fascia and tendon of lower back, initial encounter; F17.210 Nicotine dependence, cigarettes, uncomplicated; W10.9XXA Fall (on) (from) unspecified stairs and steps, initial encounter
CPT/HCPCS: 72110; 72220; 73590; 73610; 99284; A9270

== ENCOUNTER 2021-07-02 12:10 | Inpatient (IN) | payer OTHER, SELFPAY ==
[2021-07-02] VITALS (20 sets, daily range): BP systolic 97–134; BP diastolic 56–95; PULSE 78–97; RESP 14–21; TEMP 36.2–36.7; O2SAT 98–100; BMI 29.5
--- NOTE | ~2021-07-02 | CT_ITS ---
EXAMINATION: CT abdomen pelvis wo con DATE: 07/02/2021 13:21 INDICATION: Abdominal distention. History of hepatitis C, liver disease TECHNIQUE: Computed tomography (CT) of the abdomen and pelvis was performed without intravenous contr ast. Automated exposure control and iterative reconstruction technique were employed. Exam dose: 436 .50 mGy-cm total exam DLP. COMPARISON: None. FINDINGS: The lung bases are clear. Normal heart size. No pericardial or pleural effusion. Small sliding hiatal hernia. There is mild to moderate ascites. There is suggestion of some surface nodularity of the liver which may be consistent with cirrhosis. T here is mild hepatic heterogeneous density, not optimally evaluated on this limited noncontrast exami nation. Splenic size is borderline, with 13 cm vertical height. The gallbladder is present. No bile duct or pancreatic duct dilatation. Normal morphology of the adrenal glands. 11.5 mm hyperdense upper pole left renal cyst with attenuation of 85 Hounsfield units. No renal space -occupying mass lesion is evident otherwise on this noncontrast examination. No urinary tract calculu s or hydroureteronephrosis. There is diffuse thickening of the urinary bladder wall; cystitis is not excluded. The uterus and adnexal areas are unremarkable. Small sliding hiatal hernia. Normal appendix. Mild diverticulosis of the colon; no CT evidence of div erticulitis. No bowel obstruction or intraperitoneal free air. There is a fluid containing 2 cm deep 4 cm wide umbilical hernia. Included skeletal structures are unremarkable. IMPRESSION: Mild to moderate ascites Suggestion of cirrhosis, borderline splenomegaly Small sliding hiatal hernia Normal appendix Diverticulosis of the colon; no CT evidence of diverticulitis 1.5 cm hyperdense left renal cyst Fluid containing umbilical hernia Reviewed, dictated and finalized at Location A. Reviewed, dictated and finalized at location A. ICATION DBA
--- NOTE | 2021-07-02 12:59 | ED.ABDPAIN ---
HPI - Abdominal Pain General Chief Complaint: Nausea/Vomiting/Diarrhea Stated Complaint: vomiting Time Seen by Provider: 07/02/21 12:45 Source: patient Mode of arrival: ambulatory Limitations: no limitations History of Present Illness HPI narrative: Patient is a 45-year-old female complaining of increased abdominal distention, abdominal pain, accompanied by hallucinations. Patient states that her abdominal distention has been ongoing for a while but worse the past week. Patient's hallucinations started today, which she attributes to a possible elevated ammonia level, had a similar event back in August, they drained about 7 L out of my stomach , referring to paracentesis. Patient denies any fever, chills, nausea or vomiting. Patient states that she does have diarrhea since she takes lactulose daily. Patient denies any GI bleeding. Related Data Allergies Allergy/AdvReac Type Severity Reaction Status Date / Time azithromycin Allergy Intermediate Hives / Verified 06/24/21 08:26 Red Face erythromycin base Allergy Unknown Rash Verified 06/24/21 08:26 Penicillins Allergy Unknown Swelling Verified 06/24/21 08:26 Review of Systems Review of Systems: All systems reviewed & are unremarkable except as noted in HPI and below Constitutional: Constitutional: Denies body ache(s), Denies chills, Denies excessive sweating, Denies fatigue, Denies fever(s), Denies headache(s), Denies lethargy, Denies malaise, Denies weakness and Denies weight loss Eyes: Eyes: Denies blurry vision, Denies change in vision and Denies loss of vision ENT: Denies dizziness, Denies ear discharge, Denies headache(s), Denies lip swelling, Denies epistaxis, Denies nasal congestion, Denies neck pain, Denies throat swelling and Denies tongue swelling Cardiovascular: Cardiovascular: Denies chest pain, Denies chest pain at rest, Denies chest pain with activity, Denies diaphoresis, Denies rapid heart rate, Denies edema, Denies irregular heart rhythm, Denies lightheadedness, Denies palpitations, Denies dyspnea and Denies dyspnea on exertion Respiratory: Respiratory: Denies chest congestion, Denies cough, Denies hemoptysis, Denies dyspnea and Denies dyspnea on exertion Gastrointestinal: Gastrointestinal: Denies melena, Denies hematochezia, Denies diarrhea, Denies nausea, Denies vomiting and Denies hematemesis Musculoskeletal: Musculoskeletal: Denies abnormal gait, Denies deformity, Denies joint swelling, Denies limited range of motion, Denies neck pain and Denies numbness Neurologic: Denies Abnormal speech present, Denies abnormal gait, Denies confusion, Denies dizziness, Denies headache(s), Denies focal weakness, Denies loss of vision, Denies numbness, Denies Other visual disturbances, Denies Sensory deficit (Neuro) and Denies weakness Psychiatric: Psychiatric: Denies confusion, Denies depression, Denies auditory hallucinations, Denies homicidal ideation and Denies suicidal ideation Endocrine: Endocrine: Denies cold intolerance, Denies excessive sweating, Denies fatigue, Denies heat intolerance and Denies palpitations Hematologic/Lymphatic: Hematologic/Lymphatic: Denies easy bleeding and Denies easy bruising Allergic/Immunologic: Allergic/Immunologic: Denies lip swelling, Denies throat swelling and Denies tongue swelling PMFSH Past Medical History Medical History [place] esophagus Cirrhosis DIC syndrome Esophageal varices Banded at [facility] in March 2020. Gastroesophageal reflux disease Hepatitis C Patient reportedly completed treatment for same. History of alcohol abuse She has abstained from using alcohol since November 2019. 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 History of seizures Thrombocytopenia Surgical History Surgical History History of tonsillectomy Family History Family History (Reviewed 07/02/21 @ 13:02 by Alin
[2021-07-02 13:07] LABS: Basophils Absolute Auto 0.1 K/mm3 (0.0-0.1); Basophils Percent Auto 1.1 % (0.2-1.2); Eosinophils Percent Auto 0.9 % (0-4.4); Hematocrit 25.3 % (37.0-47.0); Hemoglobin 8.5 g/dL (12.0-15.0); Immature Granulocyte Absolute 0.02 K/mm3 (0.00-0.031); Immature Granulocyte Percent A 0.5 % (0-0.5); Immature Platelet Fraction Pct 4.1 % (0.9-11.2); Lymphocytes Absolute Auto 0.51 K/mm3 (0.9-3.2); Lymphocytes Percent Auto 11.6 % (18.3-44.2); Mean Corpuscular HGB Conc 33.6 g/dl (32-36); Mean Corpuscular Hemoglobin 30.1 pg (26-34); Mean Corpuscular Volume 89.7 fl (80-100); Mean Platelet Volume 11.3 fl (7.4-10.4); Monocytes Absolute Auto 0.6 K/mm3 (0.1-0.6); Monocytes Percent Auto 13.4 % (2.6-8.5); Neutrophils Absolute Auto 3.2 K/mm3 (1.3-6.7); Neutrophils Percent Auto 72.5 % (45.5-73.1); Platelet Count Result 41 k/mm3 (150-375); Red Blood Count 2.82 M/mm3 (4.2-5.4); Red Cell Distribution Width 18.3 % (11.5-14.5); White Blood Count 4.4 K/mm3 (4.5-10.0)
[2021-07-02 13:17] LABS: Alanine Aminotransferase 27 U/L (4-35); Albumin Level 3.3 g/dL (3.5-5.1); Alkaline Phosphatase 131 U/L (38-126); Anion Gap 6 mmol/L (8-16); Aspartate Amino Transferase 96 U/L (14-36); Blood Urea Nitrogen 7 mg/dL (7-17); Calcium 8.6 mg/dL (8.4-10.2); Carbon Dioxide 25 mmol/L (22-30); Chloride 101 mmol/L (98-107); Estimated CRCL calculation 100 ml/min; Estimated Glomerular Filt Rate > 60; Glucose 106 mg/dL (65-110); Lipase 269 U/L (23-300); Potassium 3.7 mmol/L (3.4-5.0); Sodium 132 mmol/L (137-145)
[2021-07-02 13:18] LABS: Ammonia 75 umol/L (9-30)
[2021-07-02 13:19] LABS: INR 1.7; Prothrombin Time 19.8 Seconds (11.1-14.7)
[2021-07-02 13:20] LABS: Partial Thromboplastin Time 35.4 SECONDS (22.3-36.8)
[2021-07-02 13:23] LABS: Hypochromasia 1+ (NORMAL); Platelet Estimate Decreased (Adequate); Poikilocytosis 1+ (NORMAL)
[2021-07-02 13:24] LABS: Anisocytosis 1+ (NORMAL); Target Cells 1+ (NORMAL)
[2021-07-02] MEDS: LACTULOSE 20 GM/30 ML UDC PO ×2 (15:43→17:07)
--- NOTE | 2021-07-02 16:03 | WPDGICN ---
Assessment and Plan Assessment and plan (1) Cirrhosis of liver: Qualifiers: Ascites presence: with ascites Hepatic cirrhosis type: alcoholic cirrhosis Qualified Code(s): K70.31 - Alcoholic cirrhosis of liver with ascites Code(s): K74.60 - Unspecified cirrhosis of liver Status: Acute Assessment and Plan: Patient with a known history of cirrhosis of liver. Appears to be on the basis of alcohol use. She does have a prior history of hepatitis C which likely also contributes to her underlying cirrhosis. Patient is now absent from alcohol and hep C is been treated. Plan is for continued supportive care. Cirrhosis likely accounts for her thrombocytopenia. (2) Ascites: Qualifiers: Ascites type: due to alcoholic cirrhosis Qualified Code(s): K70.31 - Alcoholic cirrhosis of liver with ascites Code(s): R18.8 - Other ascites Status: Acute Assessment and Plan: Patient with ascites evident on physical exam. Currently being treated with Lasix 20 mg p.o. daily supplemented with Aldactone 50 mg p.o. daily. Plan is to increase dose of Aldactone at this time. Monitor daily weights as well as electrolytes. She additionally may require increased dose of Lasix as well of her renal function and blood pressure allows. Low-salt diet is encouraged at this time. (3) Encephalopathy, hepatic: Code(s): K72.90 - Hepatic failure, unspecified without coma Status: Acute Assessment and Plan: Patient with a history of hepatic encephalopathy. Currently has elevated ammonia level. She has apparent hallucinations which appeared to correlate with her encephalopathy. Plan to increase dose of lactulose to30cc p.o. t.i.d.. Adding Xifaxan may be of benefit. hopefully that she can't afford to continue this medication after discharge. (4) Thrombocytopenia: Code(s): D69.6 - Thrombocytopenia, unspecified Status: Acute Assessment and Plan: The pancytopenia on the basis of her cirrhosis. Will monitor this. No signs of bleeding currently. Avoid transfusion of platelets unless absolutely necessary. (5) Esophageal varices: Code(s): I85.00 - Esophageal varices without bleeding Status: Acute Assessment and Plan: Patient follow-up for esophageal varices [facility]. She has had these banded apparently with eradication by recent history. She apparently also has gastric varices which are not amenable to banding. These remain at risk for bleeding. Supportive care advised. Beta-lisette therapy helps prophylactically prevent bleeding should be continued. (6) Umbilical hernia: Code(s): K42.9 - Umbilical hernia without obstruction or gangrene Status: Acute Assessment and Plan: Umbilical hernia noted on physical exam is difficult to reduce. This likely contributes to her abdominal pain. She would be a very high surgical risk. Supportive care advised at present. If pain persists consider surgical evaluation. (7) Hepatitis C: Code(s): B19.20 - Unspecified viral hepatitis C without hepatic coma Status: Acute Assessment and Plan: Hepatitis C is been treated at [facility] by history this is been eradicating (8) History of intravenous drug use in remission: Code(s): Z87.898 - Personal history of other specified conditions Status: Inactive GI Consult Note Consult date/time: 07/02/21 16:03 HPI: Maryjo Rey is a 45 year old female Seen in evaluation at the request of the emergency room. Patient has a history of alcoholic cirrhosis. She also has a history of hepatitis C which has been treated. Has a distant history of seizures, alcohol abuse, IV drug abuse, bipolar disease. Patient currently followed at [facility] hepatology Service. She states that she began to hallucinate and see people in things that were not present in the room. Additionally developed rather va
--- NOTE | 2021-07-02 16:33 | ADMGEN ---
This patient, Maryjo Rey, was admitted to Medical Room 349-01. Patient/family oriented to hospital policies and general routines including ID bracelet, bed and alarms, visiting hours, pain management, procedures, bathroom and other care routines, personal items, smoking policy, room service/diet, and visiting hours. Information on how to activate the Rapid Response Team has been discussed. Patient/Family are encouraged to report perceived risks to care and to ask questions if they do not understand what they are told or what they should do.
[2021-07-02] MEDS: SPIRONOLACTONE 50 MG TABLET PO (17:06)
[2021-07-03] VITALS (7 sets, daily range): BP systolic 78–103; BP diastolic 43–63; PULSE 73–79; RESP 12–21; TEMP 36.2–36.6; O2SAT 95–100
--- NOTE | 2021-07-03 02:56 | PM.IMHP ---
H&P: HPI History of Present Illness Date/Time: 07/03/21 02:56 Chief Complaint: Liver problems Narrative: 45-year-old female with past medical history of bipolar disorder, IV drug use, hepatitis-C, alcohol abuse and subsequent cirrhosis who presented to the ER with a complaint of liver problems. The patient reports that she has been having hallucinations for 2 days. She is seeing people that are not there. Some of her hallucinations have been disturbing. She states that she usually develops the symptoms when her ammonia is high. Then last night she began having vague abdominal pain that continued throughout the day prompting her to go to the ER. She has been having 2 bowel movements a day which is her usual. However she has developed to accompanying nausea and vomiting that started just prior to coming to the ER. Her last episode of emesis was after she arrived to the medical floor. She denies any coffee-ground emesis or hematemesis. She reports that she does not feel hungry. However she has had no further nausea since the late afternoon. She has been taking her lactulose 30 mL twice daily. Her bowels have been soft and brown. However she has not had any additional bowel movements since she received an extra dose of lactulose after admission. She reports that her abdominal distension is about at her baseline. She has not had any fevers or chills. The patient has had history of prior esophageal varices with EGD here in 2018. [facility]. In late 2019 she had direct occasion of esophageal varices but several gastric varices were unable to be eradicated. She presented to our facility again August 2020 for hemorrhagic shock and had a Toshia-Haas tear requiring clipping. She was evidently hospitalized at [facility] in September for symptomatic ascites and had a paracentesis. She still follows at [facility] with Gastroenterology Service but has not been to the clinic since last year. She had an appointment in April that she missed because she stated she could not afford to miss work. Her repeat appointment isn't until September. She has continued to take her nadolol, b.i.d. lactulose, spironolactone 50 mg daily, and Lasix 20 mg daily. 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 She does report vision changes with increased blurred vision and seeing spots and halos. She was evaluated by her senior tax manager in given new glasses. Her symptoms persisted and she was referred to a mohs surgeon/general dermatologist but she has not followed up. She reports that they will only schedule the appointments on the days that she works. She does have marked bruising to her right lower extremity from the mid torres down. She reported that last week she slipped while at work and fell down a flight of wooden stairs. She reports that the leg still hurts somewhat but is improved from previous. She had x-rays performed during her prior ER visit the demonstrate no fracture. Review of Systems Review of Systems: 12 systems were reviewed with pertinent positives and negatives per HPI. Except as documented in the HPI, all other systems were reviewed and are negative. [facility] Past Medical History Medical History (Updated 07/03/21 @ 03:10 by Madison Ramachandran DO) [place] esophagus Cirrhosis DIC syndrome Esophageal varices Banded at [facility] in March 2020. Gastroesophageal reflux disease Hepatitis C Patient reportedly completed treatment for same. History of alcohol abuse She has abstained from using alcohol since November 2019. 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 History of seizures Thrombocytopenia Surgical History Surgical History (Updated 07/03/21 @ 03:01 by Madison Ramachandran DO) History of esophagogastroduodenoscopy (EGD) Emergent eGD 09/06/2020 due to large volume upper GI blood loss with hemorrhagic
[2021-07-03 06:47] LABS: Hematocrit 22.9 % (37.0-47.0); Hemoglobin 7.9 g/dL (12.0-15.0); Mean Corpuscular HGB Conc 34.5 g/dl (32-36); Mean Corpuscular Hemoglobin 30.5 pg (26-34); Mean Corpuscular Volume 88.4 fl (80-100); Mean Platelet Volume 10.4 fl (7.4-10.4); Platelet Count Result 29 k/mm3 (150-375); Red Blood Count 2.59 M/mm3 (4.2-5.4); Red Cell Distribution Width 18.4 % (11.5-14.5); White Blood Count 2.6 K/mm3 (4.5-10.0)
[2021-07-03 07:42] LABS: Alanine Aminotransferase 21 U/L (4-35); Albumin Level 2.6 g/dL (3.5-5.1); Alkaline Phosphatase 102 U/L (38-126); Anion Gap 5 mmol/L (8-16); Aspartate Amino Transferase 71 U/L (14-36); Bilirubin,Total 5.2 mg/dL (0.2-1.3); Blood Urea Nitrogen 7 mg/dL (7-17); Calcium 8.3 mg/dL (8.4-10.2); Carbon Dioxide 23 mmol/L (22-30); Chloride 105 mmol/L (98-107); Estimated CRCL calculation 100 ml/min; Estimated Glomerular Filt Rate > 60; Glucose 95 mg/dL (65-110); Potassium 3.3 mmol/L (3.4-5.0); Sodium 133 mmol/L (137-145)
[2021-07-03 07:43] LABS: Ammonia 15 umol/L (9-30)
[2021-07-03] MEDS: FUROSEMIDE 20 MG TABLET PO (08:07)
[2021-07-03] MEDS: LACTULOSE 20 GM/30 ML UDC PO ×3 (08:07→16:38)
[2021-07-03] MEDS: NAPROXEN 500 MG TABLET PO (08:07)
[2021-07-03] MEDS: PANTOPRAZOLE 40 MG TABLET PO ×2 (08:07→20:18)
[2021-07-03] MEDS: nadoloL 20 MG TABLET PO (08:07)
[2021-07-03] MEDS: SPIRONOLACTONE 50 MG TABLET PO ×2 (08:07→16:38)
--- NOTE | 2021-07-03 09:47 | WPDGIPROGNO ---
Progress Note: A&P Assessment and Plan (1) Encephalopathy, hepatic: Code(s): K72.90 - Hepatic failure, unspecified without coma Status: Acute Assessment and Plan: Patient more alert today. No recent hallucinations. She has had no additional bowel movements since admission. Plan to increase dose of lactulose to30cc p.o. t.i.d.. Xifaxan will be added to reach she min hopefully can be continued. Ammonia level has reduced to normal suggesting improvement. (2) Cirrhosis of liver: Qualifiers: Ascites presence: with ascites Hepatic cirrhosis type: alcoholic cirrhosis Qualified Code(s): K70.31 - Alcoholic cirrhosis of liver with ascites Code(s): K74.60 - Unspecified cirrhosis of liver Status: Acute Assessment and Plan: Cirrhosis of the liver felt secondary to alcohol abuse. Currently abstinent from alcohol. She also has a history of treated hepatitis-C which likely contributed to her cirrhosis. Continued supportive care advised. Long-term follow-up with [facility] where she is established patient. (3) Ascites: Qualifiers: Ascites type: due to alcoholic cirrhosis Qualified Code(s): K70.31 - Alcoholic cirrhosis of liver with ascites Code(s): R18.8 - Other ascites Status: Acute Assessment and Plan: Ascites appears to be clinically stable. Only mild ascites described on CT scan. Dose of Aldactone has been increased slightly. Continue to monitor daily weights and electrolytes. Low-sodium diet advised. (4) Umbilical hernia: Code(s): K42.9 - Umbilical hernia without obstruction or gangrene Status: Acute Assessment and Plan: Umbilical hernia may be the source of her abdominal discomfort. I am unable to totally reduce it. We may need to consider surgical therapy although she would be high risk given her cirrhosis. Subjective Date/time seen: 07/03/21 09:47 Patient more alert more comfortable this morning. Tolerating diet. Appears less confused. Review of Systems Review of Systems: All systems reviewed & are unremarkable except as noted in HPI and below Exam Narrative: Patient alert and comfortable. Vital signs stable. HEENT exam reveals no icterus. Lungs are clear. Heart without murmur. Abdomen soft. Modestly distended. Umbilical hernia difficult to reduce. Extremities without cyanosis only trace edema. Objective Data Vital Signs Vital Signs: Vital Signs - 24 hr 07/02/21 12:30 07/02/21 13:13 07/02/21 13:15 Temperature 97.5 F L Pulse Rate 97 Respiratory Rate 14 Blood Pressure 134/84 106/60 Pulse Oximetry 99 100 07/02/21 13:39 07/02/21 13:45 07/02/21 13:47 Temperature Pulse Rate Respiratory Rate Blood Pressure 112/75 Pulse Oximetry 100 100 100 07/02/21 14:00 07/02/21 14:01 07/02/21 14:15 Temperature Pulse Rate 78 Respiratory Rate 20 Blood Pressure 112/64 Pulse Oximetry 99 100 100 07/02/21 14:16 07/02/21 14:30 07/02/21 14:31 Temperature Pulse Rate Respiratory Rate Blood Pressure 108/57 L 128/95 H Pulse Oximetry 100 100 100 07/02/21 14:45 07/02/21 14:46 07/02/21 15:14 Temperature Pulse Rate Respiratory Rate Blood Pressure 125/95 H Pulse Oximetry 98 100 100 07/02/21 15:15 07/02/21 15:16 07/02/21 16:43 Temperature 98.1 F Pulse Rate 82 Respiratory Rate 16 Blood Pressure 122/78 106/70 Pulse Oximetry 100 100 100 07/02/21 17:49 07/02/21 22:00 07/03/21 00:52 Temperature 97.2 F L Pulse Rate 81 Respiratory Rate 21 H Blood Pressure 97/59 L 107/62 Pulse Oximetry 100 95 07/03/21 01:24 07/03/21 06:00 Temperature 97.2 F L Pulse Rate 73 Respiratory Rate 21 H Blood Pressure 103/63 Pulse Oximetry 95 100 Intake/Output Intake/Output: Intake & Output 06/30/21 07/01/21 07/02/21 07/03/21 23:59 23:59 23:59 23:59 Intake Total 60 740 Output Total 750 Balance 60 -10 Meds/Results Me
--- NOTE | 2021-07-03 10:17 | PM.IMPN ---
Progress Note: A&P Assessment and Plan (1) Encephalopathy, hepatic: Code(s): K72.90 - Hepatic failure, unspecified without coma Status: Acute Assessment and Plan: Currently patient is awake alert oriented with normal mentation. Continue her lactulose to obtain 3 bowel movements per day. ammonia as progressively improved from 85 to 75 and 15 on today's labs. (2) Cirrhosis of liver: Qualifiers: Ascites presence: with ascites Hepatic cirrhosis type: alcoholic cirrhosis Qualified Code(s): K70.31 - Alcoholic cirrhosis of liver with ascites Code(s): K74.60 - Unspecified cirrhosis of liver Status: Acute Assessment and Plan: patient has a well-documented history of chronic liver disease secondary to EtOH abuse currently abstinent. She has established liver cirrhosis complicated with ascites requiring a single pass into assist in the past. She follows with hepatology at [place]. Continue p.o. diuretics per home regimen. (3) Thrombocytopenia: Code(s): D69.6 - Thrombocytopenia, unspecified Status: Acute Assessment and Plan: Likely secondary to splenic sequestration in this setting of liver cirrhosis. Extensive chronic bruise on her right lower extremity. No evidence of active bleeding. On today's last platelets 29. Will consider Hematology consult in a.m.. Additional Plan Patient has advanced cirrhosis, presenting with hepatic encephalopathy. Her cirrhosis is due to alcohol use and history hepatitis-C previously treated. The patient is already been evaluated by GI and her lactulose has been increased from b.i.d. to t.i.d. dosing and her spironolactone has been increased to b.i.d. dosing. Xifaxan was suggested possible treatment for the patient's encephalopathy but patient may not be able to afford her medication on discharge. She is continued on her home dose of Lasix currently. She has chronic pancytopenia due to her cirrhosis and her thrombocytopenia is relatively stable. She has no evidence of acute GI bleeding. Will repeat CBC CMP and ammonia level with a.m. labs. Subjective Date/time seen: Narrative: 45-year-old female with past medical history of bipolar disorder, IV drug use, hepatitis-C, alcohol abuse and subsequent cirrhosis who presented to the ER with a complaint of liver problems. The patient reports that she has been having hallucinations for 2 days. She has a complicated GI history including prior he esophageal varices manage at [facility], later in late 2019 she was diagnosed with several gastric varices that were were not amenable to intervention, and in August 2020 she was admitted to our facility for hemorrhagic shock due to a Toshia-Haas tear requiring clipping. [facility] recently [facility] for symptomatic ascites and underwent paracentesis. She still follows at [facility] with Gastroenterology Service but has not been to the clinic since last year. 07/03/21 10:17 S: Patient was examined at the bedside. She reports right lower extremity pain. There is diffuse bruising of that leg, due to a recent fall. Review of Systems Review of Systems: All systems reviewed & are unremarkable except as noted in HPI and below Exam Narrative: PHYSICAL EXAM: WEIGHT 77.9 kg BMI 29.5 General: No acute distress, overweight, appears older than stated age. BP 86/49, pulse 74, R 16, Temp 98F, O2 sat 99%. I/O: 800/750ccs. Balance + 50 mL. HEENT: Edentulous, mucous membranes are moist, no oral pharyngeal erythema, large neck circumference, positive scleral icterus, positive conjunctival pallor Respiratory: Clear to auscultation bilaterally, no increased work of breathing Cardiovascular: Regular rate, regular rhythm, 2+ bilateral radial pedal pulses Gastrointestinal: Distended, mild tenderness to deep palpation, soft, hyperactive bowel sounds, ventral wall abdominal hernia that reduces when patient's abdomen is relaxed Skin: Generalized pallor, mild jaundice Mus
[2021-07-03] MEDS: rifAXIMin 550 MG TABLET PO (20:17)
[2021-07-04 05:06] VITALS: PULSE 68; RESP 16; TEMP 36.9; O2SAT 100
[2021-07-04] MEDS: PANTOPRAZOLE 40 MG TABLET PO ×2 (08:31→20:00)
[2021-07-04] MEDS: rifAXIMin 550 MG TABLET PO ×2 (08:31→20:00)
[2021-07-04] MEDS: LACTULOSE 20 GM/30 ML UDC PO ×3 (08:31→16:32)
[2021-07-04] MEDS: nadoloL 20 MG TABLET PO (08:31)
[2021-07-04] MEDS: SPIRONOLACTONE 50 MG TABLET PO ×2 (08:32→16:32)
[2021-07-04] MEDS: POTASSIUM CHLORIDE 20 MEQ PACKET (FOR LIQUID) 40 MEQ PO ×2 (08:32→16:32)
[2021-07-04] MEDS: FUROSEMIDE 20 MG TABLET PO (08:32)
[2021-07-04 08:36] VITALS: BP 102/63; PULSE 72
--- NOTE | 2021-07-04 09:12 | WPDGIPROGNO ---
Progress Note: A&P Assessment and Plan (1) Umbilical hernia: Code(s): K42.9 - Umbilical hernia without obstruction or gangrene Status: Acute Assessment and Plan: Umbilical hernia evident. Reduced with some difficulty. This is the likely etiology for her abdominal pain present at the time of admission. Surgical therapy could be considered but she would be at increased risk because of her cirrhosis. Plan for initial observation with consideration of surgical Koul therapy if it recurs. (2) Encephalopathy, hepatic: Code(s): K72.90 - Hepatic failure, unspecified without coma Status: Acute Assessment and Plan: Patient alert more oriented with lactulose. Her hallucinations likely are related to her bipolar disease more so than hepatic encephalopathy. Plan to continue lactulose t.i.d. after discharge. Okay with me for discharge today. She should follow-up with her established GI service at [facility]. (3) Cirrhosis of liver: Qualifiers: Ascites presence: with ascites Hepatic cirrhosis type: alcoholic cirrhosis Qualified Code(s): K70.31 - Alcoholic cirrhosis of liver with ascites Code(s): K74.60 - Unspecified cirrhosis of liver Status: Acute Assessment and Plan: Patient with a long history of cirrhosis of liver on the basis of hepatitis C now treated and alcohol abuse. She should follow-up with established GI service at [facility]. (4) Ascites: Qualifiers: Ascites type: due to alcoholic cirrhosis Qualified Code(s): K70.31 - Alcoholic cirrhosis of liver with ascites Code(s): R18.8 - Other ascites Status: Acute Assessment and Plan: Patient with mild ascites on exam. Now on an increased dose of Aldactone 50mg p.o. b.i.d. supplemented with Lasix 20mg p.o. daily. Suggest follow-up electrolytes after discharge. Follow-up with established GI service after discharge. Subjective Date/time seen: 07/04/21 09:12 Patient feels much better today. Slept better. More alert. No hallucinations. Good bowel movement with increased dose of lactulose. Review of Systems Review of Systems: All systems reviewed & are unremarkable except as noted in HPI and below Exam Narrative: Physical exam patient is alert comfortable at rest. HEENT exam unremarkable patient anicteric. Lungs are clear. Heart without murmur. Abdomen is soft nontender umbilical hernia evident. Reduces with some difficulty. Objective Data Vital Signs Vital Signs: Vital Signs - 24 hr 11/20/21 13:55 07/03/21 17:29 07/03/21 21:40 Temperature 98 F Pulse Rate 74 79 Respiratory Rate 16 Blood Pressure 86/49 L 91/57 L 98/58 L Pulse Oximetry 99 07/03/21 21:46 07/04/21 05:06 07/04/21 08:36 Temperature 97.6 F 98.4 F Pulse Rate 77 68 72 Respiratory Rate 12 16 Blood Pressure 78/43 L 102/63 Pulse Oximetry 100 100 Intake/Output Intake/Output: Intake & Output 07/01/21 07/02/21 07/03/21 07/04/21 23:59 23:59 23:59 23:59 Intake Total 60 980 Output Total 950 400 Balance 60 30 -400 Meds/Results Medications: Active Medications Generic Name Dose Route Start Last Admin Trade Name Freq PRN Reason Stop Dose Admin Furosemide 20 mg 07/03/21 09:00 07/04/21 08:32 Furosemide 20 Mg Tablet PO 20 mg DAILY ANTONINO Administration Lactulose 20 gm 07/02/21 17:00 07/04/21 08:31 Lactulose 20 Gm/30 Ml Udc PO 20 gm TID ANTONINO Administration Nadolol 20 mg 07/03/21 09:00 07/04/21 08:31 Nadolol 20 Mg Tablet PO 20 mg DAILY ANTONINO Administration Pantoprazole Sodium 40 mg 07/03/21 09:00 07/04/21 08:31 Pantoprazole 40 Mg Tablet PO 40 mg Q12HR ANTONINO Administration Potassium Chloride 40 meq 07/04/21 09:00 07/04/21 08:32 Potassium Chloride 20 Meq Packet (For Liquid) PO 07/04/21 17:01 40 meq BID ANTONINO Administration Rifaximin 550 mg 07/03/21 21:00 07/04/21 08:31 Rifaximin 550 Mg Tablet PO 550 mg
--- NOTE | 2021-07-04 11:09 | PM.IMPN ---
Progress Note: A&P Assessment and Plan (1) Encephalopathy, hepatic: Code(s): K72.90 - Hepatic failure, unspecified without coma Status: Acute Assessment and Plan: Currently patient is awake alert oriented with normal mentation. Hallucinations episodes are rare. She has had multiple bowel movements on her current dose of lactulose, as her ammonia as progressively improved from 85 to 75 and 15 on yesterday's labs. (2) Cirrhosis of liver: Qualifiers: Ascites presence: with ascites Hepatic cirrhosis type: alcoholic cirrhosis Qualified Code(s): K70.31 - Alcoholic cirrhosis of liver with ascites Code(s): K74.60 - Unspecified cirrhosis of liver Status: Acute Assessment and Plan: patient has a well-documented history of chronic liver disease secondary to EtOH abuse currently abstinent. She has established liver cirrhosis complicated with ascites requiring a single pass into assist in the past. She follows with hepatology at [place]. Continue p.o. diuretics per home regimen. Follow-up advise upon discharge. (3) Thrombocytopenia: Code(s): D69.6 - Thrombocytopenia, unspecified Status: Acute Assessment and Plan: Likely secondary to splenic sequestration in this setting of liver cirrhosis. Extensive chronic bruise on her right lower extremity. No evidence of active bleeding. On today's last platelets 29. Will consider Hematology consult in a.m.. (4) Symptomatic hypotension: Code(s): I95.9 - Hypotension, unspecified Status: Acute Assessment and Plan: Patient was hypotensive with dizziness and lightheadedness. She still reports dizziness all the time of my examination although blood pressure is improving. We will start her on low-dose midodrine to help with her symptoms. (5) Hypokalemia: Code(s): E87.6 - Hypokalemia Status: Acute Assessment and Plan: She was supplemented with oral replacement in addition to her regular dose of spironolactone. Repeat potassium level today. Additional Plan Patient has advanced cirrhosis, presenting with hepatic encephalopathy. Her cirrhosis is due to alcohol use and history hepatitis-C previously treated. Patient is on high-dose diuretics for management of ascites, will with CT results done at symptomatic hypotension as a side effect. Will start to those might a train. Her spironolactone has been recently increased to b.i.d. dosing. Xifaxan was suggested possible treatment for the patient's encephalopathy but patient may not be able to afford her medication on discharge. Her lasix dose was increased as well. She has chronic pancytopenia due to her cirrhosis and her thrombocytopenia is relatively stable. She has no evidence of acute GI bleeding. Subjective Date/time seen: 07/04/21 11:09 S: Patient was examined at the bedside. She complains mild abdominal discomfort. Her mentation is improving, and her hallucinations are less frequent. She complained of dizziness and lightheadedness earlier this morning when she was hypotensive. Review of Systems Review of Systems: All systems reviewed & are unremarkable except as noted in HPI and below Constitutional: Constitutional: Reports as per HPI, Denies anorexia, Denies fatigue, Denies fever(s), Denies lethargy and Denies poor appetite Eyes: Eyes: Reports as per HPI Comments: no icterus ENT: Reports system reviewed and no additional complaints, except as documented, Denies bleeding gums and Denies epistaxis Cardiovascular: Cardiovascular: Reports as per HPI Respiratory: Respiratory: Reports as per HPI Gastrointestinal: Gastrointestinal: Reports as per HPI, Reports abdominal pain, Reports loose stools, Denies nausea and Denies vomiting Genitourinary: Genitourinary: Reports no additional female genitourinary complaints and Reports as per HPI Musculoskeletal: Musculoskeletal: Reports no additional musculoskeletal complaints and Reports as per HPI
[2021-07-04] MEDS: MIDODRINE HCL 2.5 MG TABLET PO ×2 (12:22→16:34)
[2021-07-04 12:31] LABS: Anion Gap 5 mmol/L (8-16); Blood Urea Nitrogen 4 mg/dL (7-17); Calcium 8.2 mg/dL (8.4-10.2); Carbon Dioxide 24 mmol/L (22-30); Chloride 103 mmol/L (98-107); Estimated CRCL calculation 117 ml/min; Estimated Glomerular Filt Rate > 60; Glucose 139 mg/dL (65-110); Potassium 3.6 mmol/L (3.4-5.0); Sodium 132 mmol/L (137-145)
[2021-07-04 13:29] VITALS: BP 135/59; PULSE 79; RESP 18; TEMP 36.7
[2021-07-04 20:05] VITALS: BP 98/58; PULSE 78; RESP 17; TEMP 36.9; O2SAT 100
[2021-07-05 03:02] VITALS: BP 100/52; PULSE 78; RESP 18; TEMP 36.6; O2SAT 100
[2021-07-05 05:43] LABS: Hematocrit 23.7 % (37.0-47.0); Hemoglobin 8.1 g/dL (12.0-15.0); Immature Platelet Fraction Pct 6.2 % (0.9-11.2); Mean Corpuscular HGB Conc 34.2 g/dl (32-36); Mean Corpuscular Hemoglobin 31.3 pg (26-34); Mean Corpuscular Volume 91.5 fl (80-100); Mean Platelet Volume 11.7 fl (7.4-10.4); Platelet Count Result 35 k/mm3 (150-375); Red Blood Count 2.59 M/mm3 (4.2-5.4); Red Cell Distribution Width 19.1 % (11.5-14.5); White Blood Count 3.3 K/mm3 (4.5-10.0)
[2021-07-05 05:56] LABS: Anion Gap 3 mmol/L (8-16); Blood Urea Nitrogen 3 mg/dL (7-17); Calcium 7.9 mg/dL (8.4-10.2); Carbon Dioxide 25 mmol/L (22-30); Chloride 104 mmol/L (98-107); Estimated CRCL calculation 100 ml/min; Estimated Glomerular Filt Rate > 60; Glucose 98 mg/dL (65-110); Potassium 3.5 mmol/L (3.4-5.0); Sodium 132 mmol/L (137-145)
--- NOTE | 2021-07-05 07:23 | WPDGIPROGNO ---
Progress Note: A&P Assessment and Plan (1) Cirrhosis of liver: Qualifiers: Ascites presence: with ascites Hepatic cirrhosis type: alcoholic cirrhosis Qualified Code(s): K70.31 - Alcoholic cirrhosis of liver with ascites Code(s): K74.60 - Unspecified cirrhosis of liver Status: Acute Assessment and Plan: Patient with cirrhosis of the liver on the basis of alcohol use. Currently followed at [facility]. Anticipate follow-up there after discharge. She has had ascites and hepatic encephalopathy in the past. Will continue Lasix and low-dose diuretics. Diuretic use may be limited by her blood pressure. Would also maintain low-salt diet at this time. Continue lactulose at a at t.i.d. dosing if at all possible. (2) Pancytopenia: Code(s): D61.818 - Other pancytopenia Status: Acute Assessment and Plan: Pancytopenia on the basis of bone marrow suppression from alcohol use. She does have an extremely low platelet count. This will need to be monitored conservatively. (3) Umbilical hernia: Code(s): K42.9 - Umbilical hernia without obstruction or gangrene Status: Acute Assessment and Plan: Umbilical hernia evident on physical exam appears to be the etiology for abdominal pain. Currently able to reduce when her abdominal muscles relax. (4) Hepatitis C: Qualifiers: Viral hepatitis chronicity: unspecified Code(s): B19.20 - Unspecified viral hepatitis C without hepatic coma Status: Acute Assessment and Plan: Patient has a history of hepatitis-C now status post treatment this likely contributed to her cirrhosis in addition to the alcohol use. (5) Esophageal varices: Code(s): I85.00 - Esophageal varices without bleeding Status: Acute Assessment and Plan: Patient had esophageal varices that were banded at [facility] last year. They will continue to follow this post discharge. Subjective Date/time seen: 07/05/21 07:23 Patient alert and comfortable this morning. Denies abdominal pain. Tolerating diet with no difficulty. Apparently had hypotension with no symptoms recently. Review of Systems Review of Systems: All systems reviewed & are unremarkable except as noted in HPI and below Exam Narrative: Physical exam reveals patient be alert comfortable at rest. HEENT exam with some icterus. Lungs are clear. Heart without murmur. Abdomen bowel sounds are present soft nontender with no organomegaly. Objective Data Vital Signs Vital Signs: Vital Signs - 24 hr 07/04/21 08:36 07/04/21 13:29 07/04/21 20:05 Temperature 98.0 F 98.4 F Pulse Rate 72 79 78 Respiratory Rate 18 17 Blood Pressure 102/63 135/59 L 98/58 L Pulse Oximetry 100 07/05/21 03:02 Temperature 97.8 F Pulse Rate 78 Respiratory Rate 18 Blood Pressure 100/52 L Pulse Oximetry 100 Intake/Output Intake/Output: Intake & Output 07/02/21 07/03/21 07/04/21 07/05/21 23:59 23:59 23:59 23:59 Intake Total 60 980 870 550 Output Total 950 1450 700 Balance 60 30 580 -150 Meds/Results Medications: Active Medications Generic Name Dose Route Start Last Admin Trade Name Freq PRN Reason Stop Dose Admin Furosemide 20 mg 07/03/21 09:00 07/04/21 08:32 Furosemide 20 Mg Tablet PO 20 mg DAILY ANTONINO Administration Lactulose 20 gm 07/02/21 17:00 07/04/21 16:32 Lactulose 20 Gm/30 Ml Udc PO 20 gm TID ANTONINO Administration Midodrine 2.5 mg 07/04/21 13:00 07/04/21 16:34 Midodrine Hcl 2.5 Mg Tablet PO 2.5 mg TID ANTONINO Administration Nadolol 20 mg 07/03/21 09:00 07/04/21 08:31 Nadolol 20 Mg Tablet PO 20 mg DAILY ANTONINO Administration Pantoprazole Sodium 40 mg 07/03/21 09:00 07/04/21 20:00 Pantoprazole 40 Mg Tablet PO 40 mg Q12HR ANTONINO Administration Rifaximin 550 mg 07/03/21 21:00 07/04/21 20:00 Rifaximin 550 Mg Tablet PO 550 mg Q12HR ANTONINO Administration Spir
[2021-07-05] MEDS: FUROSEMIDE 20 MG TABLET PO (08:59)
[2021-07-05] MEDS: LACTULOSE 20 GM/30 ML UDC PO ×3 (08:59→16:40)
[2021-07-05] MEDS: rifAXIMin 550 MG TABLET PO ×2 (08:59→20:03)
[2021-07-05 09:00] VITALS: PULSE 86
[2021-07-05] MEDS: MIDODRINE HCL 2.5 MG TABLET PO ×3 (09:00→16:40)
[2021-07-05] MEDS: SPIRONOLACTONE 50 MG TABLET PO ×2 (09:00→16:40)
[2021-07-05] MEDS: PANTOPRAZOLE 40 MG TABLET PO ×2 (09:00→20:03)
[2021-07-05] MEDS: nadoloL 20 MG TABLET PO (09:00)
[2021-07-05 09:04] LABS: Prealbumin 3.3 mg/dL (17.6-36.0)
--- NOTE | 2021-07-05 10:40 | ECG_ITS ---
Measurements Intervals [place] Rate: 76 P: 31 TN: 142 QRS: 24 QRSD: 88 T: 30 QT: 383 QTc: 432 Interpretive Statements SINUS RHYTHM LOW QRS VOLTAGE IN PRECORDIAL LEADS BORDERLINE T WAVE ABNORMALITY- INFERIOR LEADS BASELINE ARTIFACT- I, II, III, AVR, AVL, AVF, V1-V3 BORDERLINE ECG Electronically Signed On 07-05-2021 10:55:09 SCLEROSCOPE TESTER by Gilberto Pandya D.O.
[2021-07-05 11:17] LABS: Transferrin 204 mg/dL (206-381)
[2021-07-05 11:18] LABS: Troponin I < 0.012 ng/mL (0.000-0.034)
[2021-07-05] MEDS: PYRIDOXINE HCL 25 MG TABLET PO (11:28)
[2021-07-05] MEDS: guaiFENesin/DEXTROMETHORPHAN 10 ML UDC PO (11:28)
[2021-07-05 11:30] LABS: Iron 44 ug/dL (37-170)
[2021-07-05 11:39] LABS: Percent Iron Saturation 14 % (20-50)
--- NOTE | 2021-07-05 12:13 | PM.IMPN ---
Progress Note: A&P Assessment and Plan (1) Encephalopathy, hepatic: Code(s): K72.90 - Hepatic failure, unspecified without coma Status: Acute Assessment and Plan: Currently patient is awake alert oriented with normal mentation. She has had multiple bowel movements on her current dose of lactulose, last 2 days ago. Her ammonia as progressively improved from 85 to 75 and 15 on yesterday's labs. (2) Cirrhosis of liver: Qualifiers: Ascites presence: with ascites Hepatic cirrhosis type: alcoholic cirrhosis Qualified Code(s): K70.31 - Alcoholic cirrhosis of liver with ascites Code(s): K74.60 - Unspecified cirrhosis of liver Status: Acute Assessment and Plan: patient has a well-documented history of chronic liver disease secondary to EtOH abuse currently abstinent. She has established liver cirrhosis complicated with ascites requiring a single pass into assist in the past. She follows with hepatology at [place]. Continue p.o. diuretics per home regimen. Follow-up at [place] upon discharge. (3) Thrombocytopenia: Code(s): D69.6 - Thrombocytopenia, unspecified Status: Acute Assessment and Plan: Likely secondary to splenic sequestration in this setting of liver cirrhosis. Extensive chronic bruise on her right lower extremity. No evidence of active bleeding. On today's last platelets 35. Will consider Hematology consult in a.m.. (4) Symptomatic hypotension: Code(s): I95.9 - Hypotension, unspecified Status: Acute Assessment and Plan: Patient was hypotensive with dizziness and lightheadedness on 07/04/2021. Her blood pressures has improved with low-dose midodrine . (5) Hypokalemia: Code(s): E87.6 - Hypokalemia Status: Acute Assessment and Plan: She was supplemented with oral replacement in addition to her regular dose of spironolactone. Repeat potassium level is 3.5 today. (6) Cough: Code(s): R05.9 - Cough, unspecified Status: Acute Assessment and Plan: Patient with intermittent dry cough, associated with chest pain. Troponin was negative and EKG is benign. Pain sounds pleuritic in nature. Robitussin ordered as needed for cough. Tylenol may be given for chest pain. This does not appear to be ischemic in nature. Additional Plan Patient has advanced cirrhosis, presenting with hepatic encephalopathy. Her cirrhosis is due to alcohol use and history hepatitis-C previously treated. Patient is on high-dose diuretics for management of ascites, will resultant symptomatic hypotension as a side effect. Blood pressure has improved with low-dose midodrine. Her spironolactone has been recently increased to b.i.d. dosing. Xifaxan was suggested possible treatment for the patient's encephalopathy but patient may not be able to afford her medication on discharge. Her lasix dose was increased as well. She has chronic pancytopenia due to her cirrhosis and her thrombocytopenia is relatively stable. She has no evidence of acute GI bleeding. Subjective Date/time seen: 07/05/21 12:13 S: Patient is complaining of cough, and subsequent chest pain worsening with deep inspiration. She did not have any other complaints. She denies dizziness or lightheadedness. Review of Systems Review of Systems: All systems reviewed & are unremarkable except as noted in HPI and below Constitutional: Constitutional: Reports as per HPI, Denies anorexia, Denies fatigue, Denies fever(s), Denies lethargy and Denies poor appetite Eyes: Eyes: Reports as per HPI ENT: Reports system reviewed and no additional complaints, except as documented, Denies bleeding gums and Denies epistaxis Cardiovascular: Cardiovascular: Reports as per HPI Respiratory: Respiratory: Reports as per HPI Gastrointestinal: Gastrointestinal: Reports as per HPI, Reports abdominal pain, Reports loose stools, Denies nausea and Denies vomiting Genitourinary: Genitourinary: Repo
[2021-07-05 15:17] VITALS: BP 92/45; PULSE 70; RESP 18; TEMP 36.4; O2SAT 99
[2021-07-05 21:37] VITALS: BP 102/42; PULSE 84; RESP 18; TEMP 36.9; O2SAT 100
[2021-07-06 05:42] VITALS: BP 94/51; PULSE 79; RESP 18; TEMP 36.6; O2SAT 97
[2021-07-06 06:18] LABS: Eosinophils Absolute Auto 0.2 K/mm3 (0-0.3); Eosinophils Percent Auto 4.9 % (0-4.4); Hematocrit 24.1 % (37.0-47.0); Hemoglobin 8.3 g/dL (12.0-15.0); Immature Granulocyte Absolute 0.02 K/mm3 (0.00-0.031); Immature Granulocyte Percent A 0.5 % (0-0.5); Immature Platelet Fraction Pct 5.4 % (0.9-11.2); Mean Corpuscular HGB Conc 34.4 g/dl (32-36); Mean Corpuscular Hemoglobin 30.7 pg (26-34); Mean Corpuscular Volume 89.3 fl (80-100); Mean Platelet Volume 11.9 fl (7.4-10.4); Monocytes Absolute Auto 0.5 K/mm3 (0.1-0.6); Monocytes Percent Auto 12.6 % (2.6-8.5); Neutrophils Absolute Auto 2.6 K/mm3 (1.3-6.7); Platelet Count Result 40 k/mm3 (150-375); Red Cell Distribution Width 19.9 % (11.5-14.5); White Blood Count 4.1 K/mm3 (4.5-10.0)
[2021-07-06 06:41] LABS: Anion Gap 6 mmol/L (8-16); Blood Urea Nitrogen 3 mg/dL (7-17); Calcium 7.9 mg/dL (8.4-10.2); Carbon Dioxide 25 mmol/L (22-30); Chloride 100 mmol/L (98-107); Estimated CRCL calculation 100 ml/min; Estimated Glomerular Filt Rate > 60; Glucose 94 mg/dL (65-110); Potassium 3.3 mmol/L (3.4-5.0); Sodium 131 mmol/L (137-145)
[2021-07-06] MEDS: POTASSIUM CHLORIDE 20 MEQ PACKET (FOR LIQUID) 40 MEQ PO (08:16)
[2021-07-06] MEDS: LACTULOSE 20 GM/30 ML UDC PO (08:17)
[2021-07-06] MEDS: PANTOPRAZOLE 40 MG TABLET PO (08:18)
[2021-07-06] MEDS: MIDODRINE HCL 2.5 MG TABLET PO (08:18)
[2021-07-06] MEDS: rifAXIMin 550 MG TABLET PO (08:20)
[2021-07-06] MEDS: PYRIDOXINE HCL 25 MG TABLET PO (08:20)
[2021-07-06] MEDS: SPIRONOLACTONE 50 MG TABLET PO (08:20)
[2021-07-06 08:21] VITALS: BP 94/54; PULSE 78
[2021-07-06] MEDS: FUROSEMIDE 20 MG TABLET PO (08:21)
[2021-07-06] MEDS: nadoloL 20 MG TABLET PO (08:21)
[2021-07-06 10:04] LABS: Hematocrit 25.3 % (37.0-47.0); Hemoglobin 8.6 g/dL (12.0-15.0); Immature Platelet Fraction Pct 7.1 % (0.9-11.2); Mean Corpuscular Hemoglobin 31.5 pg (26-34); Mean Corpuscular Volume 92.7 fl (80-100); Mean Platelet Volume 11.8 fl (7.4-10.4); Platelet Count Result 43 k/mm3 (150-375); Red Blood Count 2.73 M/mm3 (4.2-5.4); Red Cell Distribution Width 19.8 % (11.5-14.5); White Blood Count 3.9 K/mm3 (4.5-10.0)
[2021-07-06 10:25] LABS: Ammonia 33 umol/L (9-30)
--- NOTE | 2021-07-06 12:22 | PM.DS ---
DS: Admitting Diagnosis Discharge Date 07/06/2021 Admitting Diagnosis (1) Encephalopathy, hepatic: (2) Cirrhosis of liver: (3) Thrombocytopenia: DS: Discharge Diagnosis Discharge Diagnosis (1) Encephalopathy, hepatic: Code(s): K72.90 - Hepatic failure, unspecified without coma Status: Acute Assessment and Plan: Currently patient is awake alert oriented with normal mentation. She has had multiple bowel movements on her current dose of lactulose, last 2 days ago. Her ammonia as progressively improved from 85 to 75 and 15 on yesterday's labs. (2) Cirrhosis of liver: Qualifiers: Ascites presence: with ascites Hepatic cirrhosis type: alcoholic cirrhosis Qualified Code(s): K70.31 - Alcoholic cirrhosis of liver with ascites Code(s): K74.60 - Unspecified cirrhosis of liver Status: Acute Assessment and Plan: patient has a well-documented history of chronic liver disease secondary to EtOH abuse currently abstinent. She has established liver cirrhosis complicated with ascites requiring a single pass into assist in the past. She follows with hepatology at [place]. Continue p.o. diuretics per home regimen. Follow-up at [facility] upon discharge. (3) Thrombocytopenia: Code(s): D69.6 - Thrombocytopenia, unspecified Status: Acute Assessment and Plan: Likely secondary to splenic sequestration in this setting of liver cirrhosis. Extensive chronic bruise on her right lower extremity. No evidence of active bleeding. On today's last platelets 35. Will consider Hematology consult in a.m.. (4) Symptomatic hypotension: Code(s): I95.9 - Hypotension, unspecified Status: Acute Assessment and Plan: Patient was hypotensive with dizziness and lightheadedness on 07/04/2021. Her blood pressures has improved with low-dose midodrine . (5) Hypokalemia: Code(s): E87.6 - Hypokalemia Status: Acute Assessment and Plan: She was supplemented with oral replacement in addition to her regular dose of spironolactone. Repeat potassium level is 3.5 today. (6) Cough: Code(s): R05.9 - Cough, unspecified Status: Acute Assessment and Plan: Patient with intermittent dry cough, associated with chest pain. Troponin was negative and EKG is benign. Pain sounds pleuritic in nature. Robitussin ordered as needed for cough. Tylenol may be given for chest pain. This does not appear to be ischemic in nature. DS: Summary Hospital Course Reason for hospitalization: Liver problem. Hospital Course: 45-year-old female with past medical history of bipolar disorder, IV drug use, hepatitis-C, alcohol abuse and subsequent cirrhosis who presented to the ER with a complaint of liver problems. The patient reports that she has been having hallucinations for 2 days. She is seeing people that are not there. Some of her hallucinations have been disturbing. She states that she usually develops the symptoms when her ammonia is high. Then last night she began having vague abdominal pain that continued throughout the day prompting her to go to the ER. The patient has had history of prior esophageal varices with EGD here in 2018. Her GI care was transferred to [facility] where she follows with Dr Josefina Garg. In late 2019 She was diagnosed with esophageal varices but several gastric varices were unable to be eradicated. She presented to our facility again August 2020 for hemorrhagic shock and had a Toshia-Haas tear requiring clipping. [facility] symptomatic ascites and had a paracentesis. She still follows at [facility] with Gastroenterology Service but has not been to the clinic since last year. She had an appointment in April that she missed because she stated she could not afford to miss work. Her repeat appointment isn't until September. She has continued to take her nadolol, b.i.d. lactulose, spironolactone 50 mg daily, and Lasix 20 mg d
== END 2021-07-06 13:15 | disposition home or self-care (01) | DRG 279 ==
LOC: ANHED 15:22 → ANH3MED 20:59
PROVIDERS: Emergency Medicine; Internal Medicine; Admitting Provider Family Medicine; Emergency Provider Emergency Medicine; Visit Provider Internal Medicine
DX: F10.11 Alcohol abuse, in remission (principal); K72.90 Hepatic failure, unspecified without coma; K70.31 Alcoholic cirrhosis of liver with ascites; D61.818 Other pancytopenia; I85.10 Secondary esophageal varices without bleeding; I86.4 Gastric varices; K42.9 Umbilical hernia without obstruction or gangrene; K21.9 Gastro-esophageal reflux disease without esophagitis; I95.9 Hypotension, unspecified; E87.6 Hypokalemia; R05.9 Cough, unspecified; R07.81 Pleurodynia; F17.210 Nicotine dependence, cigarettes, uncomplicated; F31.9 Bipolar disorder, unspecified; S80.11XA Contusion of right lower leg, initial encounter; W17.89XA Other fall from one level to another, initial encounter; Z28.21 Immunization not carried out because of patient refusal; Z79.899 Other long term (current) drug therapy; Z86.19 Personal history of other infectious and parasitic diseases; Z87.898 Personal history of other specified conditions; Z88.0 Allergy status to penicillin; Z88.1 Allergy status to other antibiotic agents
CPT/HCPCS: 36415; 74176; 80048; 80053; 81025; 82140; 82728; 83540; 83550; 83690; 84134; 84466; 84484; 85025; 85027; 85055; 85610; 85730; 93005; 99285; A9270; G0378

== ENCOUNTER 2021-09-24 07:26 | Outpatient (CLI) | payer OTHER, SELFPAY ==
--- NOTE | ~2021-09-24 | US_ITS ---
EXAMINATION: US abdomen limited EXAM DATE: 09/24/2021 07:57 INDICATION: Other Cirrhosis Of Liver-Primary TECHNIQUE: Multiple grayscale and Doppler images of the abdomen right upper quadrant were obtained (b y a technologist who performed the scan) and subsequently reviewed. Comparison is made to prior exami nation from 06/06/2018. FINDINGS: The pancreatic head and body are normal in appearance. The pancreatic tail is not visualized. There is atrophic liver with nodular contour, cirrhosis. Moderate amount of perihepatic ascites demonstrate d. There are no focal liver lesions identified. There is no evidence of intrahepatic biliary duct d ilation. Portal venous flow was seen in the hepatopedal, normal direction and has normal Doppler wav eform. Portal vein is normal in size. No right-sided hydronephrosis. Common bile duct measures 6 mm, which is normal. Gallbladder has only mild distention. No calcific c holelithiasis or sonographic Montano sign demonstrated. There is diffuse gallbladder wall thickening w hich is nonspecific particularly in the setting of cirrhosis and ascites. IMPRESSION: 1. Cirrhosis. 2. Moderate ascites. 3. Gallbladder wall thickening probably due to chronic liver disease. Reviewed, dictated and finalized at location B. ITECTURAL TECHNOLOGIST
== END 2021-09-24 07:27 | disposition home or self-care (01) ==
LOC: ANHIMG 07:29
DX: K74.69 Other cirrhosis of liver (principal); R18.8 Other ascites
CPT/HCPCS: 76705

== ENCOUNTER 2021-12-24 08:37 | Outpatient (CLI) | payer OTHER, SELFPAY ==
[2021-12-24 09:23] LABS: Immature Platelet Fraction Pct 3.8 % (0.9-11.2); Mean Platelet Volume 10.1 fl (7.4-10.4); Platelet Count Result 106 k/mm3 (150-375)
[2021-12-24 09:33] LABS: INR 2.2; Prothrombin Time 23.6 Seconds (11.1-14.7)
== END 2021-12-24 08:38 | disposition home or self-care (01) ==
DX: K74.69 Other cirrhosis of liver (principal); R18.8 Other ascites
CPT/HCPCS: 36415; 85049; 85055; 85610

== ENCOUNTER 2021-12-25 09:58 | Inpatient (IN) | payer OTHER, SELFPAY ==
[2021-12-25] VITALS (75 sets, daily range): BP systolic 73–138; BP diastolic 45–109; PULSE 48–90; RESP 0–33; TEMP 31.1–37.1; O2SAT 88–100; BMI 32.5
--- NOTE | ~2021-12-25 | US_ITS ---
US paracentesis abd w/image DATE: 12/25/2021 13:15 INDICATION: Ascites; therapeutic paracentesis TECHNIQUE: The scan of the lower anterolateral abdominal wall was prepared with sterile Betadine. 1% lidocaine local anesthetic was administered to the skin and underlying subcutaneous tissues. A single stick needle/catheter was introduced uneventfully into the peritoneal cavity with ultrasound guidanc e. The catheter was advanced over the needle and the needle withdrawn. 5 L of clear yellow ascites was drained uneventfully into Vacutainer bottles. IMPRESSION: Successful ultrasound-guided percutaneous drainage of 5 L of clear yellow ascites Reviewed, dictated and finalized at Location [facility]. Reviewed, dictated and finalized at location A.
--- NOTE | ~2021-12-25 | CT_ITS ---
EXAMINATION: CT abdomen pelvis w con DATE: 12/25/2021 12:45 INDICATION: Abdominal pain TECHNIQUE: Computed tomography (CT) of the abdomen and pelvis was performed with 100 CC Omnipaque 300 intravenous contrast. Automated exposure control and iterative reconstruction technique were employe d. Exam dose: 1564.06 mGy-cm total exam DLP. COMPARISON: 09/24/2021 Limited abdominal ultrasound 07/02/2021 CT abdomen pelvis FINDINGS: There is mild left pleural effusion. There is bilateral predominantly dependent lower lobe atelectasis. Cardiomegaly. No pericardial effusion. There is severe ascites. There is edema of the abdominal and pelvic bermeo. There is surface nodularity of the liver consistent with cirrhosis. There is splenomegaly. No pancreatic mass lesion, calcification or ductal dilatation. No bile duct dilatation. Gallbladder i s present. Normal morphology of the adrenal glands. No renal mass lesion or urinary tract calculus or hydroureteronephrosis. The uterus, adnexal areas an d urinary bladder are unremarkable. No bowel obstruction or intraperitoneal free air. IMPRESSION: Severe ascites Cirrhosis and splenomegaly Small left pleural effusion Bilateral lower lobe atelectasis Reviewed, dictated and finalized at Location [facility]. Reviewed, dictated and finalized at location A.
--- NOTE | ~2021-12-25 | CT_ITS ---
EXAMINATION: CT abdomen pelvis wo con DATE: 12/27/2021 21:51 INDICATION: low hemoglobin, abdominal pain TECHNIQUE: Computed tomography (CT) of the abdomen and pelvis was performed without intravenous contr ast. Automated exposure control and iterative reconstruction technique were employed. The dose-length product was 1399.76 mGy-cm. COMPARISON: 12/25/2021. FINDINGS: Lower thorax: The tip of a central line or PICC terminates in the proximal right atrium. Small hiatal hernia. Mild coronary calcifications. Worsening consolidation in the left lower lobe with patchy are as of groundglass in the bilateral lower lungs and dependent right consolidation. Small left and trac e right pleural effusions. Liver: Shrunken, nodular liver consistent with cirrhosis. Biliary/Gallbladder: Gallbladder is normal. No bile duct dilation. Pancreas: No mass or duct dilation. Spleen: Enlarged likely due to portal hypertension. Adrenals:No mass. Kidneys: No mass, stone, or hydronephrosis. GI tract: No small or large bowel dilation. Normal appendix. Mesentery/Peritoneum: Massive ascites, with new dependent hyperdense content (40-58 HU). Retroperitoneum: No mass. Pelvis: The bladder is decompressed by a Zuluaga catheter. Soft Tissues: Diffuse body wall edema. Bones: No acute osseous finding. IMPRESSION: Pulmonary findings concerning for left lower lobe and possibly multifocal pneumonia. Massive ascites with dependently layering hyperdense content which may reflect infected, proteinaceous, or hemorrhagi c material. Reviewed, dictated and finalized at location K. IMPRESSION: Pulmonary findings concerning for left lower lobe and possibly multifocal pneum onia. Massive ascites with dependently layering hyperdense content which may re flect infected, proteinaceous, or hemorrhagic material.
--- NOTE | ~2021-12-25 | US_ITS ---
EXAMINATION: US paracentesis abd w/image DATE: 12/28/2021 08:52 INDICATION: Complex ascites TECHNIQUE: The procedure and its risks and benefits were discussed with the patient. Potential risks discussed included bleeding and infection. The skin was prepped and draped in sterile fashion. 1% lid ocaine was used for local anesthesia. Under ultrasound guidance, a 5 Fr catheter with trochar was adv anced into the ascites in the left lower quadrant. Fluid was aspirated into vacuum bottles. The blayne ter was removed, and a dressing was applied. There were no immediate complications. FINDINGS: Ultrasound images demonstrate ascites and the catheter within the fluid. There are some low-level ech oes and subtle linear septations within the ascites. IMPRESSION: 1. Successful ultrasound-guided paracentesis yielding 5000 mL of cloudy reddish fluid. Reviewed, dictated and finalized at location A. IMPRESSION: 1. Successful ultrasound-guided paracentesis yielding 5000 mL of cloudy reddis h fluid.
--- NOTE | ~2021-12-25 | US_ITS ---
US paracentesis abd w/image DATE: 12/26/2021 10:12 INDICATION: Ascites TECHNIQUE: The skin at the left anterolateral lower abdomen subperiosteal Betadine. 1% lidocaine was administered to the skin and this underlying subcutaneous tissues. A single stick needle/catheter was introduced uneventfully into the peritoneal cavity using ultrasound localization. Clear yellow ascit es was obtained at the hub of the needle. The catheter was advanced over the needle and the needle wi thdrawn. 5 L of clear yellow ascites was drained into vacuum bottles. The patient was cooperative and tolerated procedure well. IMPRESSION: Ultrasound-guided percutaneous paracentesis procedure yielding 5 L clear yellow fluid Reviewed, dictated and finalized at [facility]. Reviewed, dictated and finalized at location A.
--- NOTE | ~2021-12-25 | XR_ITS ---
XR abdomen NG/feed tube insert DATE: 12/26/2021 11:50 INDICATION: New NG tube placement TECHNIQUE: Portable AP view on 12/26/2021 1142 hours COMPARISON: None FINDINGS: NG tube is situated in the body of the stomach, the proximal side-port approximately 10 cm distal to the diaphragmatic hiatus. There are gas distended small bowel segments overlying the mid abdomen. Left lower lobe infiltrate and/atelectasis with air bronchograms. IMPRESSION: NG tube in body of stomach Reviewed, dictated and finalized at [facility]. Reviewed, dictated and finalized at location A. IMPRESSION: NG tube in body of stomach
--- NOTE | ~2021-12-25 | CT_ITS ---
EXAMINATION: CT brain wo con DATE: 12/25/2021 12:46 INDICATION: Confusion. Altered mental state. TECHNIQUE: Computed tomography (CT) of the head was performed without intravenous contrast. The mA wa s adjusted according to patient size. Iterative reconstruction technique was employed. Exam dose: 60 5.33 mGy-cm total exam DLP. COMPARISON: 11/24/2018 CT brain FINDINGS: No intracranial mass lesion or hemorrhage or cerebrovascular accident is evident. No midlin e shift or mass effect No subdural or epidural hematoma. There is greater than expected cerebral volume loss for age. There is a fluid level in the left maxillary sinus. There is soft tissue thickening of the ethmoid ai r cells. The mastoid air cells are normally developed and aerated. No fracture or bone destruction of the cranial vault. IMPRESSION: No acute intracranial abnormality Reviewed, dictated and finalized at [facility]. Reviewed, dictated and finalized at location A.
--- NOTE | ~2021-12-25 | XR_ITS ---
r EXAMINATION: XR chest PICC line Exam Date/Time: 12/25/2021 15:26 CDT CLINICAL HISTORY: PICC LINE PLACEMENT Comparison: 09/08/2020. RESULT: Lines, tubes, and devices: Left upper extremity PICC terminating in the right atrium. Lungs and pleura: Bibasilar subsegmental patchy opacities, greater on the left. Minimal left angle b lunting. Cardiomediastinal silhouette: Stable cardiomediastinal silhouette. Other: No acute osseous or upper abdominal finding. IMPRESSION: Left upper extremity PICC terminating in the right atrium, consider 4 cm retraction. Bibasilar opacit ies, commonly attributed to atelectasis. Possible small left pleural effusion. Reviewed, dictated and finalized at location K. IMPRESSION: Left upper extremity PICC terminating in the right atrium, consider 4 cm retrac tion. Bibasilar opacities, commonly attributed to atelectasis. Possible small l eft pleural effusion.
--- NOTE | 2021-12-25 10:23 | ECG_ITS ---
Measurements Intervals [place] Rate: 47 P: 31 [place]: 159 QRS: 21 QRSD: 105 T: 30 QT: 543 QTc: 484 Interpretive Statements SINUS BRADYCARDIA BORDERLINE ST-T WAVE ABNORMALITY- ANT/INF LEADS ABNORMAL ECG Electronically Signed On 12-25-2021 15:07:29 CDT by Gilberto Pandya D.O.
--- NOTE | 2021-12-25 10:31 | ED.AMS ---
HPI - Altered Mental Status General Chief Complaint: Altered Mental Status Stated Complaint: altered mental Time Seen by Provider: 12/25/21 10:20 History of Present Illness HPI narrative: 46-year-old female presents to the emergency room via EMS for evaluation of altered mental status. Patient is accompanied by her mother who is at the bedside. According to the mother patient was scheduled for paracentesis yesterday at [facility], and was told that they did not have the right medications for her to complete the procedure. Patient's mother then made an appointment at [facility] for paracentesis on Monday. Mother states last night around 6:30 PM patient became altered and confused. EMS was called this morning due to increasing confusion, and patient was unable to follow directions. EMS states that they found the patient lying on the floor. Presently, patient is alert and oriented x1. Patient has a history of ascites and liver cirrhosis Related Data Home Medications Medication Instructions Recorded Confirmed furosemide [Lasix] 40 mg PO DAILY 12/25/21 spironolactone 100 mg PO DAILY 12/25/21 12/25/21 Allergies Allergy/AdvReac Type Severity Reaction Status Date / Time azithromycin Allergy Intermediate Hives / Verified 12/25/21 10:56 Red Face erythromycin base Allergy Unknown Rash Verified 12/25/21 10:56 Penicillins Allergy Unknown Swelling Verified 12/25/21 10:56 Review of Systems Review of Systems: ROS unobtainable: Yes unobtainable due to mental status PMFSH Past Medical History Medical History [place] esophagus Cirrhosis DIC syndrome Esophageal varices Banded at [facility] in March 2020. Gastroesophageal reflux disease Hepatitis C Patient reportedly completed treatment for same. History of alcohol abuse She has abstained from using alcohol since November 2019. 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 History of seizures Thrombocytopenia Surgical History Surgical History History of esophagogastroduodenoscopy (EGD) Emergent eGD 09/06/2020 due to large volume upper GI blood loss with hemorrhagic shock demonstrated large Toshia-Haas tear in the gastric cardia History of tonsillectomy Family History Family History Other Cancer Social History Social History Social History: The patient is currently living in [place] with her mother. 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 Former alcoholic, dry since November 2019. She is a smoker, approximately 6 cigarettes a day. She designates her mother Lexi Valiente as her surrogate decision maker and she wishes to be a full code. Her ex-, Ramiro Harris, is her healthcare power of attorney at law and she wishes for both him and her mother to make medical decisions on her behalf should she be unable to do so. She wishes to be a full code. Smoking packs per day: 0.3 Smoking cigarettes per day: 6.0 Years smoked: 20 Smoking pack-years: 6.00 Smoking status: Current every day smoker Tobacco type: cigarettes Second hand tobacco smoke exposure: Yes Alcohol intake: former Substance use: never Substance use type: methamphetamine Gender identity (if verbalized by the patient): Female Spiritual care concerns: No Exam Narrative: GENERAL: Altered mental status, confused HEAD: Normocephalic, atraumatic. EYES: PERRLA and EOMI. CHEST: Clear to auscultation. No respiratory distress. No wheezes rales or rhonchi HEART: Bradycardic, normal rhythm. No murmur heard. Normal peripheral pulses. ABDOMEN: Distended. EXTREMITIES: Normal range of motion. Bilateral +4 pitting edema. SKIN: Warm, dry, no rash, jaundiced. NEURO: No focal de
[2021-12-25 11:09] LABS: Basophils Percent Auto 0.3 % (0.2-1.2); Eosinophils Percent Auto 0.2 % (0-4.4); Immature Granulocyte Absolute 0.07 K/mm3 (0.00-0.031); Immature Granulocyte Percent A 1.1 % (0-0.5); Immature Platelet Fraction Pct 3.3 % (0.9-11.2); Lymphocytes Absolute Auto 0.37 K/mm3 (0.9-3.2); Lymphocytes Percent Auto 5.6 % (18.3-44.2); Mean Corpuscular HGB Conc 30.3 g/dl (32-36); Mean Corpuscular Hemoglobin 24.7 pg (26-34); Mean Corpuscular Volume 81.3 fl (80-100); Mean Platelet Volume 10.3 fl (7.4-10.4); Monocytes Absolute Auto 0.6 K/mm3 (0.1-0.6); Monocytes Percent Auto 9.1 % (2.6-8.5); Neutrophils Absolute Auto 5.5 K/mm3 (1.3-6.7); Neutrophils Percent Auto 83.7 % (45.5-73.1); Platelet Count Result 68 k/mm3 (150-375); Red Blood Count 2.19 M/mm3 (4.2-5.4); Red Cell Distribution Width 20.3 % (11.5-14.5); White Blood Count 6.6 K/mm3 (4.5-10.0)
[2021-12-25 11:12] LABS: Hematocrit 17.8 % (37.0-47.0); Hemoglobin 5.4 g/dL (12.0-15.0)
[2021-12-25 11:19] LABS: Ammonia < 9 umol/L (9-30)
[2021-12-25 11:20] LABS: Creatine Kinase 206 U/L (30-135)
[2021-12-25 11:21] LABS: Lactic Acid Reflex 2.5 mmol/L (0.7-2.0)
[2021-12-25 11:27] LABS: Alanine Aminotransferase 21 U/L (6-35); Albumin Level 2.2 g/dL (3.5-5.1); Alkaline Phosphatase 69 U/L (38-126); Anion Gap 5 mmol/L (8-16); Aspartate Amino Transferase 65 U/L (14-36); Bilirubin,Total 4.5 mg/dL (0.2-1.3); Blood Urea Nitrogen 27 mg/dL (7-17); Calcium 7.7 mg/dL (8.4-10.2); Carbon Dioxide 25 mmol/L (22-30); Chloride 89 mmol/L (98-107); Estimated CRCL calculation 58 ml/min; Estimated Glomerular Filt Rate 48; Glucose 118 mg/dL (65-110); Potassium 4.3 mmol/L (3.4-5.0); Sodium 119 mmol/L (137-145)
[2021-12-25 11:28] LABS: INR 2.2
[2021-12-25 11:29] LABS: Partial Thromboplastin Time 36.9 SECONDS (22.3-36.8)
[2021-12-25 11:30] LABS: NT Pro B Type Natriuretic Pept 1260 pg/mL (5-100)
[2021-12-25 11:34] LABS: Troponin I < 0.012 ng/mL (0.000-0.034)
[2021-12-25] MEDS: SODIUM CHLORIDE 0.9% IV 1,000 ML 999 ML IV CONT ×2 (11:36→13:46)
[2021-12-25 11:57] LABS: Appearance Urine Cloudy (Clear); Bilirubin Urine 2+ (Negative); Color Urine Amber (Yellow); Glucose Urine UA Negative (Negative); Ketones Urine Trace mg/dL (Negative); Leukocyte Esterase Ur Negative LEU/UL (Negative); Nitrate Urine Positive (Negative); Protein Urine Negative (Negative)
[2021-12-25 12:08] LABS: Bacteria Urine Trace /hpf; Hyaline Casts Urine 15-19 /lpf; Mucus Urine Rare /lpf; Squamous Epithelial Cell Urine Rare /hpf (Few); WBC Clumps Urine Present /HPF
[2021-12-25 12:16] LABS: Add Urine Microscopic? YES; Blood Urine Trace-Intact (Negative)
[2021-12-25 12:20] LABS: Urea Random Urine 609 MG/DL
[2021-12-25 12:50] LABS: Anion Gap 6 mmol/L (8-16); Blood Urea Nitrogen 27 mg/dL (7-17); Calcium 7.7 mg/dL (8.4-10.2); Carbon Dioxide 23 mmol/L (22-30); Chloride 90 mmol/L (98-107); Estimated CRCL calculation 58 ml/min; Estimated Glomerular Filt Rate 48; Glucose 120 mg/dL (65-110); Potassium 4.1 mmol/L (3.4-5.0); Sodium 119 mmol/L (137-145)
[2021-12-25] MEDS: PANTOPRAZOLE SODIUM IV 40 MG VIAL IV PUSH (13:15)
--- NOTE | 2021-12-25 13:25 | PC.NURSE ---
pt c/o feeling like she was going to pass out. pt noted to have ectopic beats on monitor. pt did nicole down to 40's 1330 atropine given ivp bp 112/70 p67 100 % placed on 4l o2 via nc 1334 p69 100% on 2 lnc r 23 bp 120/86. pt states is feeling some better.
[2021-12-25] MEDS: metroNIDAZOLE 500 MG/ISO 100ML 500 MG/100 ML BAG 100 MG IVPB (13:32)
--- NOTE | 2021-12-25 13:34 | PM.CNNEP ---
Assessment and Plan Assessment and plan (1) Hyponatremia: Code(s): E87.1 - Hypo-osmolality and hyponatremia Status: Acute Assessment and Plan: etiology difficult to assess suspicion would fall on hypovolemia given her low H/H however, her liver disease makes her predisposed to volume overload this is further complicated her liver cirrhosis in general -- her liver physiology makes her predisposed to chronic prerenal in spite of evidence of volume overload/ascites hence, she could be intravascularly dry in spite of her fluid retention issues/volume overload check urine electrolytes, TSH, cortisol, SPEP, and UPEP, as well as serum/urine osmolality will be getting fluids in the form of blood products and IVFs follow trend of repeat sodium level suspect will need to use 3% saline in an effort to keep sodium > 120 (2) Anemia: Qualifiers: Anemia type: iron deficiency Iron deficiency anemia type: chronic blood loss Qualified Code(s): D50.0 - Iron deficiency anemia secondary to blood loss (chronic) Code(s): D64.9 - Anemia, unspecified Status: Acute Assessment and Plan: related to blood loss versus liver disease PRBC transfusion per protocol start PPI follow trend of H/H possible GI evaluation depending response to therapy (3) Altered mental status: Code(s): R41.82 - Altered mental status, unspecified Status: Acute Assessment and Plan: presumable due to acute illness ammonia level normal follow mentation with current therapy (4) Sepsis: Qualifiers: Sepsis type: sepsis due to unspecified organism Sepsis acute organ dysfunction status: with acute organ dysfunction Severe sepsis acute organ dysfunction type: encephalopathy Severe sepsis shock status: with septic shock Qualified Code(s): A41.9 - Sepsis, unspecified organism; R65.21 - Severe sepsis with septic shock; G93.40 - Encephalopathy, unspecified Code(s): A41.9 - Sepsis, unspecified organism Status: Acute Assessment and Plan: suspicion noted on presentation no clear source at this time -- possible SBP(?) follow culture data empiric antibiotics follow hemodynamics as well (5) Cirrhosis of liver: Qualifiers: Ascites presence: with ascites Hepatic cirrhosis type: alcoholic cirrhosis Qualified Code(s): K70.31 - Alcoholic cirrhosis of liver with ascites Code(s): K74.60 - Unspecified cirrhosis of liver Status: Chronic Assessment and Plan: known issues/problems (6) Coagulopathy: Code(s): D68.9 - Coagulation defect, unspecified Status: Acute Assessment and Plan: presumably due to liver disease +/- acute illness given anemia, FFP to be given administer vitamin K(?) follow INR > 20 minutes spent reviewing record (paper + electronic chart) and discussion with nurses involved in her care. History of Present Illness Reason for Consult Consult date: 12/25/21 Reason for consult: hyponatremia Chief Complaint Chief complaint: Ascities History of Present Illness Narrative: Almost all the information I have obtained is from review of the electronic medical record as well as discussion with the physician/ nurses involved in the patient's care as the patient is unable to provide me with any history as to the events that led to her ER visit/hospitalization. The patient is a 46-year-old female with an extensive past medical history as outlined below who presented to [facility] Emergency room due to altered mental status. The patient was apparently scheduled for an outpatient paracentesis at [facility] but this was unable to be done. As she was still in need of a paracentesis, her mother apparently rescheduled procedure at [facility]. however, her mother noted that the patient seemed to be getting more and more confused as time went on and was particularly worse t
--- NOTE | 2021-12-25 13:34 | P.CONNP_ITS ---
Assessment and Plan Assessment and plan (1) Hyponatremia: Code(s): E87.1 - Hypo-osmolality and hyponatremia Status: Acute Assessment and Plan: * etiology difficult to assess * suspicion would fall on hypovolemia given her low H/H * however, her liver disease makes her predisposed to volume overload * this is further complicated her liver cirrhosis in general -- her liver physiology makes her predisposed to chronic prerenal in spite of evidence of volume overload/ascites * hence, she could be intravascularly dry in spite of her fluid retention issues/volume overload * check urine electrolytes, TSH, cortisol, SPEP, and UPEP, as well as serum/urine osmolality * will be getting fluids in the form of blood products and IVFs * follow trend of repeat sodium level * suspect will need to use 3% saline in an effort to keep sodium > 120 (2) Anemia: Qualifiers: Anemia type: iron deficiency Iron deficiency anemia type: chronic blood loss Qualified Code(s): D50.0 - Iron deficiency anemia secondary to blood loss (chronic) Code(s): D64.9 - Anemia, unspecified Status: Acute Assessment and Plan: * related to blood loss versus liver disease * PRBC transfusion per protocol * start PPI * follow trend of H/H * possible GI evaluation depending response to therapy (3) Altered mental status: Code(s): R41.82 - Altered mental status, unspecified Status: Acute Assessment and Plan: * presumable due to acute illness * ammonia level normal * follow mentation with current therapy (4) Sepsis: Qualifiers: Sepsis type: sepsis due to unspecified organism Sepsis acute organ d ysfunction status: with acute organ dysfunction Severe sepsis acute organ dysfunction type: encephalopathy Severe sepsis shock status: with septic shock Qualified Code(s): A41.9 - Sepsis, unspecified organism; R65.21 - Severe sepsis with septic shock; G93.40 - Encephalopathy, unspecified Code(s): A41.9 - Sepsis, unspecified organism Status: Acute Assessment and Plan: * suspicion noted on presentation * no clear source at this time -- possible SBP(?) * follow culture data * empiric antibiotics * follow hemodynamics as well (5) Cirrhosis of liver: Qualifiers: Ascites presence: with ascites Hepatic cirrhosis type: alcoholic cirrhosis Qualified Code(s): K70.31 - Alcoholic cirrhosis of liver with ascites Code(s): K74.60 - Unspecified cirrhosis of liver Status: Chronic Assessment and Plan: * known issues/problems (6) Coagulopathy: Code(s): D68.9 - Coagulation defect, unspecified Status: Acute Assessment and Plan: * presumably due to liver disease +/- acute illness * given anemia, FFP to be given * administer vitamin K(?) * follow INR > 20 minutes spent reviewing record (paper + electronic chart) and discussion with nurses involved in her care. History of Present Illness Reason for Consult Consult date: 12/25/21 Reason for consult: hyponatremia Chief Complaint Chief complaint: Ascities History of Present Illness Narrative: Almost all the information I have obtained is from review of the electronic medical record as well as discussion with the physician/ nurses involved in the patient's care as the patient is unable to provide me with any history as to the events that led to her ER visit/hospitalization. The patient is a 46-year-old female with an extensive past medical history as outlined below who presented to [facility]
[2021-12-25] MEDS: MAGNESIUM SULF 2 GM/WATER 50ML 2 GM/50 ML BAG IVPB (13:35)
[2021-12-25 13:39] LABS: Magnesium 1.9 mg/dL (1.6-2.3)
[2021-12-25] MEDS: PHYTONADIONE INJ 10 MG/ML AMP IM (13:40)
[2021-12-25] MEDS: ATROPINE SULFATE 1 MG/10 ML SYRINGE IV PUSH (13:41)
[2021-12-25 14:01] LABS: Reflex Lactic Acid Yes or No Add Lactic
--- NOTE | 2021-12-25 14:02 | WPDCNINT ---
Assessment and Plan Assessment and plan (1) Encephalopathy: Code(s): G93.40 - Encephalopathy, unspecified Status: Acute Assessment and Plan: Her head CT was negative and ammonia level was normal Could be secondary to sepsis Avoid sedative Monitor (2) Ascites: Code(s): R18.8 - Other ascites Status: Acute Assessment and Plan: Patient has had paracentesis done in the ER and 5 L fluid was removed. I requested ER provider to send fluid for studies including cell count Gram stain culture and albumin level She will likely need the repeat paracentesis as she still has significant amount of ascites exam (3) Upper GI bleed: Code(s): K92.2 - Gastrointestinal hemorrhage, unspecified Status: Acute Assessment and Plan: Although there is no history of GI bleeding on presentation but considering patient has history of varices, upper GI bleed, Toshia-Haas tear in the past and now presents with hemoglobin, we will resume patient has bleeding 2 units PRBC transfusion ordered Serial hemoglobin Octreotide and PPI drips Consult GI NPO (4) Anemia: Code(s): D64.9 - Anemia, unspecified Status: Acute Assessment and Plan: Multifactorial anemia see above (5) Cirrhosis of liver: Qualifiers: Ascites presence: with ascites Hepatic cirrhosis type: alcoholic cirrhosis Qualified Code(s): K70.31 - Alcoholic cirrhosis of liver with ascites Code(s): K74.60 - Unspecified cirrhosis of liver Status: Acute Assessment and Plan: Patient has severe cirrhosis at baseline Ammonia level normal (6) Hyponatremia: Code(s): E87.1 - Hypo-osmolality and hyponatremia Status: Acute Assessment and Plan: Patient presented with sodium of 119. Nephrology consulted Patient received 1 L saline bolus and will can you cautious amount of IV fluids was saline at 100 mL/hour Although patient is overall volume overloaded she may be intravascularly volume depleted as evidenced by low blood pressure on presentation and elevated creatinine Monitor sodium q.4 hours If sodium does not improve, will try 3% saline Nephrology consulted Urine studies ordered (7) Coagulopathy: Code(s): D68.9 - Coagulation defect, unspecified Status: Acute Assessment and Plan: Secondary to liver disease Transfuse 2 units of FFP Vitamin K 10 mg Monitor INR (8) Sepsis: Code(s): A41.9 - Sepsis, unspecified organism Status: Acute Assessment and Plan: Patient meets criteria for sepsis UA is negative, CT chest on pelvis does not show any significant abnormality except ascites Patient denies any abdominal pain and is not tender on exam Paracentesis done and fluid will be sent for studies Will empirically treat for SBP at this time fluid results are back Cautious IV fluids as patient is overall volume overloaded but may be intravascularly dry NS and albumin ordered She is also receiving PRBC and FFP Her blood pressure improved after IV fluid bolus. Will use Levophed if needed (9) Bradycardia: Code(s): R00.1 - Bradycardia, unspecified Status: Acute Assessment and Plan: She had episode of bradycardia requiring atropine in the ER She is on a beta-lisette at home which will be held Additional Plan DVT prophylaxis -SCDs Stress ulcer prophylaxis -PPI Nutrition -NPO at this time Code Status - Full Code Total Critical Care Time - 40 minutes Due to a high probability of clinically significant, life threatening deterioration, the patient required my highest level of preparedness to intervene emergently and I personally spent this critical care time directly and personally managing the patient. This critical care time included obtaining a history; examining the patient; pulse oximetry; ordering and review of studies; arranging urgent treatment with development of a management plan; evaluation of patient's response to treatment; frequent
--- NOTE | 2021-12-25 14:43 | ADMGEN ---
This patient, Maryjo Rey, was admitted to Intensive Care Unit-5 [id number]. Patient/family oriented to hospital policies and general routines including ID bracelet, bed and alarms, visiting hours, pain management, procedures, bathroom and other care routines, personal items, smoking policy, room service/diet, and visiting hours. Information on how to activate the Rapid Response Team has been discussed. Patient/Family are encouraged to report perceived risks to care and to ask questions if they do not understand what they are told or what they should do.
[2021-12-25] MEDS: SODIUM CHLORIDE 0.9% IV 250 ML 30 ML IV CONT ×3 (15:52→18:12)
[2021-12-25] MEDS: SODIUM CHLORIDE 0.9% IV 1,000 ML 100 ML IV CONT (15:58)
[2021-12-25] MEDS: NOREPINEPHRINE 8 MG/D5W 250 ML 8 MG/250 ML BAG 5.6 MG (16:08)
[2021-12-25 16:25] LABS: Hematocrit 22.3 % (37.0-47.0); Hemoglobin 7.1 g/dL (12.0-15.0)
--- NOTE | 2021-12-25 16:29 | PM.IMHP ---
H&P: HPI History of Present Illness Date/Time: 12/25/21 16:29 Chief Complaint: Altered mental status Narrative: 38-year-old female with alcoholic cirrhosis with ascites and prior hx of treated hepatitis C was scheduled last week for ultrasound guided paracentesis [facility] due to technical issues her mother rescheduled at [facility] for early next week. The patient was more confused than usual the night prior to admission. This morning mother found the patient lying confused by her bed. She was unable to get up and was disoriented. EMS was summoned and brought to the hospital which she was found to be profoundly anemic and hypothermic with coagulopathy shock and jaundice but with ammonia level undetectable. Patient had been eating and drinking up until the night prior to admission. She had been taking her medications as prescribed. There have been no noted change in stool or urine and no obvious source of bleeding. Other than tightness in abdomen patient denied pain. While in the emergency department she had a paracentesis removing 5 L of fluid. She also had an episode of bradycardia in the 40s and received atropine. She does take a beta-lisette at home for portal hypertension. Review of Systems Review of Systems: All systems reviewed & are unremarkable except as noted in HPI and below PMFSH Past Medical History Medical History [place] esophagus Cirrhosis DIC syndrome Esophageal varices Banded at [facility] in March 2020. Gastroesophageal reflux disease Hepatitis C Patient reportedly completed treatment for same. History of alcohol abuse She has abstained from using alcohol since November 2019. 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 History of seizures Thrombocytopenia Surgical History Surgical History History of esophagogastroduodenoscopy (EGD) Emergent eGD 09/06/2020 due to large volume upper GI blood loss with hemorrhagic shock demonstrated large Toshia-Haas tear in the gastric cardia History of tonsillectomy Family History Family History Other Cancer Social History Social History (Updated 12/25/21 @ 16:40 by Miguel Lima MD) Social History: The patient is currently living in [place] with her mother. 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 She has a history of IV methamphetamine use and has been sober since May,. Former heavy drinker. She is a smoker, approximately 6 cigarettes a day. She designates her mother Lexi Valiente as her surrogate decision maker and she wishes to be a full code. Smoking packs per day: 0.3 Smoking cigarettes per day: 6.0 Years smoked: 20 Smoking pack-years: 6.00 Smoking status: Current every day smoker Tobacco type: cigarettes Second hand tobacco smoke exposure: Yes Alcohol intake: current Drinks per week: 50 Substance use: current Substance use type: methamphetamine Gender identity (if verbalized by the patient): Female Spiritual care concerns: No Meds Home Medications and Allergies Home Medications Medication Instructions Recorded Confirmed Type lactulose 30 ml PO Q12H #60 oz 09/24/20 07/02/21 Rx nadolol 20 mg PO DAILY #30 tablet 09/24/20 07/02/21 Rx blood pressure test kit-medium #1 ea 07/06/21 Rx furosemide [Lasix] 40 mg PO DAILY 12/25/21 History spironolactone 100 mg PO DAILY 12/25/21 12/25/21 History Allergies Allergy/AdvReac Type Severity Reaction Status Date / Time azithromycin Allergy Intermediate Hives / Verified 12/25/21 10:56 Red Face erythromycin base Allergy Unknown Rash Verified 12/25/21 10:56 Penicillins Allergy Unknown Swelling Verified 12/25/21 10:56 Vital Signs Vital Signs - 24 hr 12/25/21 09:55 12/25/21 10:04 12/25/21 10:05 Temperature 97.2 F L Pulse Rate 56 L 59 L 53 L Respiratory
[2021-12-25 16:47] LABS: Appearance Peritoneal Fluid Clear (Clear); Color Peritoneal Fluid Yellow (Colorless); Source Peritoneal Fluid Peritoneal Fluid
[2021-12-25 16:47] LABS: Anion Gap 4 mmol/L (8-16); Blood Urea Nitrogen 25 mg/dL (7-17); Calcium 7.3 mg/dL (8.4-10.2); Carbon Dioxide 22 mmol/L (22-30); Chloride 92 mmol/L (98-107); Estimated CRCL calculation 69 ml/min; Estimated Glomerular Filt Rate 59; Glucose 167 mg/dL (65-110); Sodium 118 mmol/L (137-145)
[2021-12-25 16:48] LABS: Eosinophils Peritoneal Fluid 3 %; Lymphocytes Peritoneal Fluid 4 %; Monocytes Peritoneal Fluid 5 %; Neutrophils Peritoneal Fluid 34 % (0-25); Nucleated Cells Peritoneal Flu 99 /uL (0-500); RBC Peritoneal Fluid 108 /uL (0-100000)
[2021-12-25 16:54] LABS: Macrophages Peritoneal Fluid 54 %
[2021-12-25 17:17] LABS: Creatinine Urine 101.5 mg/dL; Total Protein Urine Random 12 mg/dL; Ur Ttl Prot Creatinine Ratio 0.12 mg/mg (0-0.20)
[2021-12-25 17:18] LABS: Sodium Urine Random 9 meq/L
--- NOTE | 2021-12-25 17:55 | PC.NURSE ---
Update given to Dr. Bruce: critical NA 118, improved neuro status, on 4mcg/min Norepinephrine, VS stable at this time. Most recent Hemoglobin 7.1. Orders to transfuse one more unit of PRBC's. Order to contact nephrology for instructions regarding critical sodium level. Call to Dr. Rizvi. Update given on patient's current status, as well as critical sodium level. Orders to stop NS gtt. Redraw sodium level at 1900 and call with results.
[2021-12-25] MEDS: ALBUMIN HUMAN 25% 25 GM/100 ML 100 ML IVPB ×2 (18:33→23:19)
[2021-12-25 19:53] LABS: Sodium 119 mmol/L (137-145)
[2021-12-25] MEDS: NOREPINEPHRINE 8 MG/D5W 250 ML 8 MG/250 ML BAG 11.25 MG IV CONT (20:37)
[2021-12-25] MEDS: LACTULOSE 20 GM/30 ML UDC PO (20:54)
[2021-12-25] MEDS: SODIUM CHLORIDE 3% 270 ML 90 ML IV CONT (21:00)
[2021-12-25] MEDS: ONDANSETRON INJ 4 MG/2 ML VIAL IV PUSH (22:06)
[2021-12-25] MEDS: SODIUM CHLORIDE 0.9% IV 100 ML 30 ML (23:26)
--- NOTE | 2021-12-25 23:43 | ECG_ITS ---
Measurements Intervals [place] Rate: 89 P: [place]: 0 QRS: 54 QRSD: 94 T: 88 QT: 382 QTc: 466 Interpretive Statements SINUS RHYTHM BORDERLINE ST-T WAVE ABNORMALITY- INF/LAT LEADS BASELINE ARTIFACT- I, II, III, AVR, AVL, AVF, V1-V6 BORDERLINE ECG Electronically Signed On 12-26-2021 13:28:38 CDT by Gilberto Pandya D.O.
[2021-12-26] VITALS (33 sets, daily range): BP systolic 82–114; BP diastolic 49–76; PULSE 66–93; RESP 10–25; TEMP 36.4–37.6; O2SAT 94–100
[2021-12-26 00:07] LABS: Glucose Point of Care 152 mg/dl (65-105)
[2021-12-26] MEDS: PROMETHAZINE HCL 25 MG/ML AMPUL IM (00:25)
[2021-12-26 01:34] LABS: Anion Gap 7 mmol/L (8-16); Blood Urea Nitrogen 25 mg/dL (7-17); Calcium 7.9 mg/dL (8.4-10.2); Carbon Dioxide 23 mmol/L (22-30); Chloride 91 mmol/L (98-107); Estimated CRCL calculation 69 ml/min; Estimated Glomerular Filt Rate 59; Glucose 214 mg/dL (65-110); Potassium 3.9 mmol/L (3.4-5.0); Sodium 121 mmol/L (137-145)
[2021-12-26 04:48] LABS: Basophils Percent Auto 0.5 % (0.2-1.2); Eosinophils Percent Auto 0.5 % (0-4.4); Hematocrit 23.6 % (37.0-47.0); Hemoglobin 7.7 g/dL (12.0-15.0); Immature Granulocyte Absolute 0.25 K/mm3 (0.00-0.031); Immature Granulocyte Percent A 2.9 % (0-0.5); Immature Platelet Fraction Pct 3.5 % (0.9-11.2); Lymphocytes Absolute Auto 0.28 K/mm3 (0.9-3.2); Lymphocytes Percent Auto 3.2 % (18.3-44.2); Mean Corpuscular HGB Conc 32.6 g/dl (32-36); Mean Corpuscular Hemoglobin 26.5 pg (26-34); Mean Corpuscular Volume 81.1 fl (80-100); Mean Platelet Volume 10.4 fl (7.4-10.4); Monocytes Absolute Auto 0.6 K/mm3 (0.1-0.6); Monocytes Percent Auto 6.3 % (2.6-8.5); Neutrophils Absolute Auto 7.5 K/mm3 (1.3-6.7); Neutrophils Percent Auto 86.6 % (45.5-73.1); Platelet Count Result 64 k/mm3 (150-375); Red Blood Count 2.91 M/mm3 (4.2-5.4); Red Cell Distribution Width 17.9 % (11.5-14.5); White Blood Count 8.7 K/mm3 (4.5-10.0)
[2021-12-26 04:58] LABS: Alanine Aminotransferase 18 U/L (6-35); Albumin Level 2.6 g/dL (3.5-5.1); Alkaline Phosphatase 52 U/L (38-126); Anion Gap 5 mmol/L (8-16); Aspartate Amino Transferase 45 U/L (14-36); Bilirubin,Total 8.5 mg/dL (0.2-1.3); Blood Urea Nitrogen 24 mg/dL (7-17); Calcium 7.9 mg/dL (8.4-10.2); Carbon Dioxide 23 mmol/L (22-30); Chloride 90 mmol/L (98-107); Estimated CRCL calculation 76 ml/min; Estimated Glomerular Filt Rate > 60; Glucose 211 mg/dL (65-110); Sodium 118 mmol/L (137-145)
[2021-12-26 05:01] LABS: INR 2.1
[2021-12-26 05:08] LABS: Platelet Estimate Decreased (Adequate)
[2021-12-26 05:09] LABS: Hypochromasia 2+ (NORMAL); Poikilocytosis 1+ (NORMAL)
[2021-12-26 05:39] LABS: Thyroid Stimulating Hormone Reflex 0.237 uIU/mL (0.465-4.68)
[2021-12-26 05:58] LABS: Glucose Point of Care 145 mg/dl (65-105)
[2021-12-26] MEDS: ONDANSETRON INJ 4 MG/2 ML VIAL IV PUSH (06:07)
[2021-12-26] MEDS: SODIUM CHLORIDE 3% 270 ML 90 ML IV CONT (06:39)
--- NOTE | 2021-12-26 08:35 | WPDINTPN ---
Progress Note: A&P Assessment and Plan (1) Encephalopathy: Code(s): G93.40 - Encephalopathy, unspecified Status: Acute Assessment and Plan: Her head CT was negative and ammonia level was normal Could be secondary to sepsis and metabolic encephalopathy Improving as patient is now alert oriented x3 Continue to avoid sedative Monitor (2) Ascites: Qualifiers: Ascites type: due to alcoholic cirrhosis Qualified Code(s): K70.31 - Alcoholic cirrhosis of liver with ascites Code(s): R18.8 - Other ascites Status: Acute Assessment and Plan: Patient has had paracentesis done in the ER and 5 L fluid was removed. I requested ER provider to send fluid for studies including cell count Gram stain culture and albumin level She still has significant amount of ascites on exam and repeat paracentesis has been ordered (3) Upper GI bleed: Code(s): K92.2 - Gastrointestinal hemorrhage, unspecified Status: Acute Assessment and Plan: Although there is no history of GI bleeding on presentation but considering patient has history of varices, upper GI bleed, Toshia-Haas tear in the past and now presents with hemoglobin, we will resume patient has bleeding 3 units PRBC transfusion ordered No evidence of significant bleeding overnight patient's vomitus does not have gross blood and has not had a bowel movement overnight Continue Serial hemoglobin Continue Octreotide and PPI drips GI has been consulted NPO (4) Anemia: Qualifiers: Anemia type: iron deficiency Iron deficiency anemia type: chronic blood loss Qualified Code(s): D50.0 - Iron deficiency anemia secondary to blood loss (chronic) Code(s): D64.9 - Anemia, unspecified Status: Acute Assessment and Plan: Multifactorial anemia see above (5) Cirrhosis of liver: Qualifiers: Ascites presence: with ascites Hepatic cirrhosis type: alcoholic cirrhosis Qualified Code(s): K70.31 - Alcoholic cirrhosis of liver with ascites Code(s): K74.60 - Unspecified cirrhosis of liver Status: Acute Assessment and Plan: Patient has severe cirrhosis at baseline Ammonia level normal She has chronic Devorah elevated bilirubin level. Continue to monitor (6) Hyponatremia: Code(s): E87.1 - Hypo-osmolality and hyponatremia Status: Acute Assessment and Plan: Patient presented with sodium of 119. Nephrology was consulted Patient received 1 L saline bolus and will can you cautious amount of IV fluids was saline at 100 mL/hour She was given 3% saline which led to some improved and is getting a 2nd dose this time Continue to Monitor sodium q.4 hours Urine studies ordered (7) Coagulopathy: Code(s): D68.9 - Coagulation defect, unspecified Status: Acute Assessment and Plan: Secondary to liver disease She was 2 units of FFP 12/26 Vitamin K 10 mg was given Monitor INR (8) Sepsis: Qualifiers: Sepsis type: sepsis due to unspecified organism Sepsis acute organ dysfunction status: with acute organ dysfunction Severe sepsis acute organ dysfunction type: encephalopathy Severe sepsis shock status: with septic shock Qualified Code(s): A41.9 - Sepsis, unspecified organism; R65.21 - Severe sepsis with septic shock; G93.40 - Encephalopathy, unspecified Code(s): A41.9 - Sepsis, unspecified organism Status: Acute Assessment and Plan: Patient met criteria for sepsis on presentation although source is not clear UA is negative, CT chest on pelvis does not show any significant abnormality except ascites Patient denies any abdominal pain and was not tender on exam Paracentesis was done and fluid does not suggest infection as she had only 99 PMNs She was empirically started on treatment for SBP with imipenem Cautious IV fluids were given as patient overall volume overloaded but may be intravascularly dry Continue albumin She also received PRBC and FFP He
--- NOTE | 2021-12-26 08:49 | PM.IMPN ---
Progress Note: A&P Assessment and Plan (1) Encephalopathy: Code(s): G93.40 - Encephalopathy, unspecified Status: Acute Assessment and Plan: Her head CT was negative and ammonia level was normal Could be secondary to sepsis and metabolic encephalopathy Improving as patient is now alert oriented x3 Continue to avoid sedatives Monitor (2) Ascites: Qualifiers: Ascites type: due to alcoholic cirrhosis Qualified Code(s): K70.31 - Alcoholic cirrhosis of liver with ascites Code(s): R18.8 - Other ascites Status: Acute Assessment and Plan: Patient has had paracentesis done in the ER and 5 L fluid was removed. Repeat paracentesis today (3) Upper GI bleed: Code(s): K92.2 - Gastrointestinal hemorrhage, unspecified Status: Acute Assessment and Plan: No overt bleeding. 3 units of packed red cells given overnight. 12/26 hemoglobin 7.6 (4) Anemia: Qualifiers: Anemia type: iron deficiency Iron deficiency anemia type: chronic blood loss Qualified Code(s): D50.0 - Iron deficiency anemia secondary to blood loss (chronic) Code(s): D64.9 - Anemia, unspecified Status: Acute Assessment and Plan: Likely due to cirrhosis with portal hypertension, alcohol-induced marrow toxicity, chronic GI blood loss. (5) Cirrhosis of liver: Qualifiers: Ascites presence: with ascites Hepatic cirrhosis type: alcoholic cirrhosis Qualified Code(s): K70.31 - Alcoholic cirrhosis of liver with ascites Code(s): K74.60 - Unspecified cirrhosis of liver Status: Chronic Assessment and Plan: Patient has severe cirrhosis at baseline Ammonia level normal She has chronic Devorah elevated bilirubin level. Continue to monitor (6) Hyponatremia: Code(s): E87.1 - Hypo-osmolality and hyponatremia Status: Acute Assessment and Plan: Sodium improved from 12/25 119 to 12/26 124 after IV NL and 3% saline bolus x 2. (7) Coagulopathy: Code(s): D68.9 - Coagulation defect, unspecified Status: Acute Assessment and Plan: Secondary to liver disease She was 2 units of FFP and 10mg vitamin K by 12/26 Monitor INR (8) Sepsis: Qualifiers: Sepsis type: sepsis due to unspecified organism Sepsis acute organ dysfunction status: with acute organ dysfunction Severe sepsis acute organ dysfunction type: encephalopathy Severe sepsis shock status: with septic shock Qualified Code(s): A41.9 - Sepsis, unspecified organism; R65.21 - Severe sepsis with septic shock; G93.40 - Encephalopathy, unspecified Code(s): A41.9 - Sepsis, unspecified organism Status: Acute Assessment and Plan: Met criteria for sepsis on presentation although source is not clear UA is negative, CT C/A/P w/o sign of infection Paracentesis was done and fluid does not suggest infection She was empirically started on Primaxin for SBP Cautious IV fluids and albumin BP improved Levophed at 2mcg 12/26 AM and weaning (9) Bradycardia: Code(s): R00.1 - Bradycardia, unspecified Status: Acute Assessment and Plan: She had episode of bradycardia requiring atropine in the ER She is on a beta-lisette at home which was held Subjective Date/time seen: 12/26/21 08:49 Interval history: 12/26. DENIED PAIN OTHER THAN TENSE ABDOMEN. Review of Systems Review of Systems: All systems reviewed & are unremarkable except as noted in HPI and below Exam Narrative: General: Pt is drowsy but easily arousable, no acute distress Lungs/Chest: Trachea central Clear BS B/L, No crackles or wheezing. Cardiac: RRR. Normal S1 S2. No murmurs Circulation: Feet are warm Abdomen: Normal bowel sounds. TENSE ASCITES. NO PALPABLE HEPATOMEGALY. Extremities: No clubbing, cyanosis , bilateral pitting edema present Warm : Zuluaga in place Neurologic: Follows commands. Moves all 4 extremities PERRL AO x3 Skin: No Rash, spider nevi present Ob
[2021-12-26] MEDS: THIAMINE HCL 200 MG/2 ML VIAL 100 MG IV PUSH (09:35)
[2021-12-26] MEDS: FOLIC ACID 1 MG/0.2 ML INJ IV PUSH (09:35)
[2021-12-26 10:18] LABS: Barbiturate Screen Urine Negative (Negative); Benzodiazepines Screen Urine Negative (Negative)
[2021-12-26 10:23] LABS: Cannabinoid Screen Urine Negative (Negative); Cocaine Screen Urine Negative (Negative); Methadone Screen Urine Negative (Negative); Phencyclidine Screen Urine Negative (Negative)
[2021-12-26 10:30] LABS: Opiate Screen Urine Negative (Negative)
[2021-12-26 10:55] LABS: Hematocrit 22.7 % (37.0-47.0); Hemoglobin 7.6 g/dL (12.0-15.0)
[2021-12-26 10:57] LABS: Amphetamine Screen Urine Positive (Negative)
[2021-12-26 11:12] LABS: Anion Gap 6 mmol/L (8-16); Blood Urea Nitrogen 21 mg/dL (7-17); Calcium 7.6 mg/dL (8.4-10.2); Carbon Dioxide 22 mmol/L (22-30); Chloride 94 mmol/L (98-107); Estimated CRCL calculation 77 ml/min; Estimated Glomerular Filt Rate > 60; Glucose 192 mg/dL (65-110); Potassium 3.8 mmol/L (3.4-5.0); Sodium 122 mmol/L (137-145)
[2021-12-26] MEDS: ALBUMIN HUMAN 25% 25 GM/100 ML 100 ML IVPB ×2 (11:13→17:25)
--- NOTE | 2021-12-26 11:20 | WPDGICN ---
Assessment and Plan Assessment and plan (1) Decompensation of cirrhosis of liver: Code(s): K72.90 - Hepatic failure, unspecified without coma; K74.60 - Unspecified cirrhosis of liver Status: Acute Assessment and Plan: unfortunately she has been drinking again and using drugs (mother does not know) admitted to ICU with encephalopathy, jaundice, possible sepsis, hyponatremia and failure to thrive (2) Hyponatremia: Code(s): E87.1 - Hypo-osmolality and hyponatremia Status: Acute Assessment and Plan: probably multifactorial and correcting slowly, nephrology on board (3) Encephalopathy: Code(s): G93.40 - Encephalopathy, unspecified Status: Acute Assessment and Plan: this could be hepatic encephalopathy, use of drugs (Utox +), hyponatremia, sepsis, etc will give lactulose enema to see if will respond and also add xifaxan (4) Ascites: Qualifiers: Ascites type: due to alcoholic cirrhosis Qualified Code(s): K70.31 - Alcoholic cirrhosis of liver with ascites Code(s): R18.8 - Other ascites Status: Acute Assessment and Plan: s/p 10 liters removed, no obvious SBP per labs but on albumin and antibiotics pending cultures (5) Coagulopathy: Code(s): D68.9 - Coagulation defect, unspecified Status: Acute Assessment and Plan: from decompensated cirrhosis will give vit k (6) Acute on chronic anemia: Code(s): D64.9 - Anemia, unspecified Status: Acute Assessment and Plan: no overt gib but will monitor closely to see if will need egd (she had esophageal banding in 2019 and then MWT in 2020)- mother says that had EGD about 2 months ago. Holding off on egd because she is obtunded anemia also could be multifactorial on protonix and octreotide for now (7) Sepsis: Qualifiers: Sepsis type: sepsis due to unspecified organism Sepsis acute organ dysfunction status: with acute organ dysfunction Severe sepsis acute organ dysfunction type: encephalopathy Severe sepsis shock status: with septic shock Qualified Code(s): A41.9 - Sepsis, unspecified organism; R65.21 - Severe sepsis with septic shock; G93.40 - Encephalopathy, unspecified Code(s): A41.9 - Sepsis, unspecified organism Status: Acute Assessment and Plan: possible sepsis on antibiotics (8) Hepatitis C: Qualifiers: Viral hepatitis chronicity: unspecified Code(s): B19.20 - Unspecified viral hepatitis C without hepatic coma Status: Acute Assessment and Plan: this was treated successfully she is establish with arch pad cementer at [facility] (9) Esophageal varices: Code(s): I85.00 - Esophageal varices without bleeding Status: Acute GI Consult Note Consult date/time: 12/26/21 11:20 Reason for consult: decompensated cirrhosis, ascites, anemia, encephalopathy HPI: Maryjo Rey is a 46 year old female history cirrhosis secondary to alcoholic liver disease and HCV (this was treated at [facility] and eradicated), IV drug use. I met her when she presented to the hospital 08/2020 with severe GI bleed from Toshia-Haas tear- treated endoscopically and eventually transferred to U. Recently she has been requiring frequent paracentesis as outpatient. Patient is drowsy and can not provide history, mother is at bedside and says that patient's abdomen has been getting more distended but she failed to come for her paracentesis, also was getting more confused, decrease appetite. Her RN just informed me that patient has been drinking again and also using meth (mother is unaware). She was brought to ER with worsening confusion, lethargic. She was admitted to ICU with decompensated cirrhosis and worsening ascites. Blood work bili 8.5, ast 45, alt 18, creat 0.9, Na 118, ammonia <9, lactic 2.5, hb 5.4 but after blood transfusion mid 7 (hb normally 8's), inr 2. CT scan reviewed and showed severe ascites, cirrhosis and splenomegaly, small left p
[2021-12-26 11:32] LABS: Free T4 Free Thyroxine Reflex 1.28 ng/dL (0.78-2.19)
--- NOTE | 2021-12-26 11:35 | P.PNNP_ITS ---
Progress Note: A&P Assessment and Plan (1) Hyponatremia: Code(s): E87.1 - Hypo-osmolality and hyponatremia Status: Acute Assessment and Plan: * etiology difficult to assess * suspicion would fall on hypovolemia given her low H/H * however, her liver disease makes her susceptible to volume overload * this is further complicated her liver cirrhosis in general -- her liver physiology makes her predisposed to chronic prerenal in spite of evidence of volume overload/ascites * hence, she could be intravascularly dry in spite of her fluid retention issues/volume overload * TSH a tad low, free T4 pending * cortisol okay * SPEP, and UPEP, as well as serum/urine osmolality pending * will be getting fluids in the form of blood products/IV medications * s/p 3% saline x 2 * goal rate of change in sodium is 4 - 6mmol/L in 24 hours (but not to exceed 8mmol/L) * follow trend of repeat sodium level (2) Anemia: Qualifiers: Anemia type: iron deficiency Iron deficiency anemia type: chronic blood loss Qualified Code(s): D50.0 - Iron deficiency anemia secondary to blood loss (chronic) Code(s): D64.9 - Anemia, unspecified Status: Acute Assessment and Plan: * related to blood loss versus liver disease * PRBC transfusion per protocol * on PPI and octreotide * follow trend of H/H * GI recommendations noted (3) Altered mental status: Code(s): R41.82 - Altered mental status, unspecified Status: Acute Assessment and Plan: * improving * presumable due to acute illness * ammonia level normal * follow mentation with current therapy (4) Sepsis: Qualifiers: Sepsis acute organ dysfunction status: with acute organ dysfunction Sepsis type: sepsis due to unspecified organism Severe sepsis acute organ dysfunction type: encephalopathy Severe sepsis shock status: with septic shock Qualified Code(s): A41.9 - Sepsis, unspecified organism; R65.21 - Severe sepsis with septic shock; G93.40 - Encephalopathy, unspecified Code(s): A41.9 - Sepsis, unspecified organism Status: Acute Assessment and Plan: * suspicion noted on presentation * no clear source at this time -- possible SBP(?) * follow culture data * empiric antibiotics * follow hemodynamics as well (5) Cirrhosis of liver: Qualifiers: Ascites presence: with ascites Hepatic cirrhosis type: alcoholic cirrhosis Qualified Code(s): K70.31 - Alcoholic cirrhosis of liver with ascites Code(s): K74.60 - Unspecified cirrhosis of liver Status: Chronic Assessment and Plan: * known issues/problems (6) Coagulopathy: Code(s): D68.9 - Coagulation defect, unspecified Status: Acute Assessment and Plan: * presumably due to liver disease +/- acute illness * s/p FFP and Vitamin K * follow INR Will continue to follow. Subjective Date/time seen: 12/26/21 11:35 S/P 3% saline yesterday and this AM in an effort to keep sodium > 120 given her significant confusion on admission; mentation seems to be doing better in general; on low dose levophed at this time; responded to blood product transf usion in the last 24 hours; renal function back to baseline as well; another large volume paracentesis done today. Exam Narrative: General: ill appearing female in NAD Heart: normal S1 and S2; no rub Lungs: clear to auscultation Abdomen: soft, nontender, mild distension positive bowel sounds Extremities: no cyanosis or clubbing; 1 - 2+ edema
--- NOTE | 2021-12-26 11:35 | PM.PNNEP ---
Progress Note: A&P Assessment and Plan (1) Hyponatremia: Code(s): E87.1 - Hypo-osmolality and hyponatremia Status: Acute Assessment and Plan: etiology difficult to assess suspicion would fall on hypovolemia given her low H/H however, her liver disease makes her susceptible to volume overload this is further complicated her liver cirrhosis in general -- her liver physiology makes her predisposed to chronic prerenal in spite of evidence of volume overload/ascites hence, she could be intravascularly dry in spite of her fluid retention issues/volume overload TSH a tad low, free T4 pending cortisol okay SPEP, and UPEP, as well as serum/urine osmolality pending will be getting fluids in the form of blood products/IV medications s/p 3% saline x 2 goal rate of change in sodium is 4 - 6mmol/L in 24 hours (but not to exceed 8mmol/L) follow trend of repeat sodium level (2) Anemia: Qualifiers: Anemia type: iron deficiency Iron deficiency anemia type: chronic blood loss Qualified Code(s): D50.0 - Iron deficiency anemia secondary to blood loss (chronic) Code(s): D64.9 - Anemia, unspecified Status: Acute Assessment and Plan: related to blood loss versus liver disease PRBC transfusion per protocol on PPI and octreotide follow trend of H/H GI recommendations noted (3) Altered mental status: Code(s): R41.82 - Altered mental status, unspecified Status: Acute Assessment and Plan: improving presumable due to acute illness ammonia level normal follow mentation with current therapy (4) Sepsis: Qualifiers: Sepsis acute organ dysfunction status: with acute organ dysfunction Sepsis type: sepsis due to unspecified organism Severe sepsis acute organ dysfunction type: encephalopathy Severe sepsis shock status: with septic shock Qualified Code(s): A41.9 - Sepsis, unspecified organism; R65.21 - Severe sepsis with septic shock; G93.40 - Encephalopathy, unspecified Code(s): A41.9 - Sepsis, unspecified organism Status: Acute Assessment and Plan: suspicion noted on presentation no clear source at this time -- possible SBP(?) follow culture data empiric antibiotics follow hemodynamics as well (5) Cirrhosis of liver: Qualifiers: Ascites presence: with ascites Hepatic cirrhosis type: alcoholic cirrhosis Qualified Code(s): K70.31 - Alcoholic cirrhosis of liver with ascites Code(s): K74.60 - Unspecified cirrhosis of liver Status: Chronic Assessment and Plan: known issues/problems (6) Coagulopathy: Code(s): D68.9 - Coagulation defect, unspecified Status: Acute Assessment and Plan: presumably due to liver disease +/- acute illness s/p FFP and Vitamin K follow INR Will continue to follow. Subjective Date/time seen: 12/26/21 11:35 S/P 3% saline yesterday and this AM in an effort to keep sodium > 120 given her significant confusion on admission; mentation seems to be doing better in general; on low dose levophed at this time; responded to blood product transfusion in the last 24 hours; renal function back to baseline as well; another large volume paracentesis done today. Exam Narrative: General: ill appearing female in NAD Heart: normal S1 and S2; no rub Lungs: clear to auscultation Abdomen: soft, nontender, mild distension positive bowel sounds Extremities: no cyanosis or clubbing; 1 - 2+ edema Skin: warm and dry Objective Data Vital Signs Vital Signs: Vital Signs Temp Pulse Resp BP Pulse Ox 12/26/21 10:52 90/55 L 12/26/21 10:10 85 95/57 L 12/26/21 10:00 83 20 90/74 L 95 12/26/21 09:16 37.3 C 77 13 90/62 L 100 12/26/21 09:01 37.3 C 77 13 100/64 100 12/26/21 09:00 37.3 C 76 14 100 12/26/21 08:45 37.3 C 82 19 110/62 99 12/26/21 08:30 37.3 C 78 14 100/62 100 12/26/21 08:15 37.4 C 79
--- NOTE | 2021-12-26 11:44 | PC.NURSE ---
Sodium result called to Dr. Rizvi. Sodium is now 122. Order to redraw in 4 hours.
[2021-12-26 13:05] LABS: Total Triiodothyronine (T3) 0.41 NG/ML (0.97-1.69)
[2021-12-26] MEDS: LACTULOSE 20 GM/30 ML UDC PO ×2 (14:39→21:01)
[2021-12-26 15:09] LABS: Anion Gap 4 mmol/L (8-16); Blood Urea Nitrogen 21 mg/dL (7-17); Calcium 7.7 mg/dL (8.4-10.2); Carbon Dioxide 23 mmol/L (22-30); Chloride 97 mmol/L (98-107); Estimated CRCL calculation 77 ml/min; Estimated Glomerular Filt Rate > 60; Glucose 130 mg/dL (65-110); Potassium 3.6 mmol/L (3.4-5.0); Sodium 124 mmol/L (137-145)
[2021-12-26 19:02] LABS: Glucose Point of Care 148 mg/dl (65-105)
[2021-12-26 19:05] LABS: Hematocrit 19.4 % (37.0-47.0); Hemoglobin 6.3 g/dL (12.0-15.0); Sodium 124 mmol/L (137-145)
[2021-12-26] MEDS: rifAXIMin 550 MG TABLET PO (20:52)
[2021-12-26] MEDS: SODIUM CHLORIDE 0.9% IV 250 ML 30 ML IV CONT (21:12)
[2021-12-26 23:07] LABS: Sodium 125 mmol/L (137-145)
--- NOTE | 2021-12-26 23:27 | PC.NURSE ---
informed of Na level of 125. No new orders at this time
[2021-12-26 23:33] LABS: Glucose Point of Care 130 mg/dl (65-105)
[2021-12-27] VITALS (39 sets, daily range): BP systolic 84–102; BP diastolic 52–74; PULSE 65–85; RESP 10–30; TEMP 35.7–36.9; O2SAT 20–100
[2021-12-27] MEDS: ALBUMIN HUMAN 25% 25 GM/100 ML 100 ML IVPB ×4 (00:18→17:44)
[2021-12-27 02:31] LABS: Hematocrit 20.1 % (37.0-47.0); Hemoglobin 6.6 g/dL (12.0-15.0)
[2021-12-27] MEDS: LACTULOSE 20 GM/30 ML UDC PO ×3 (05:41→22:51)
[2021-12-27 05:55] LABS: Glucose Point of Care 130 mg/dl (65-105)
[2021-12-27 07:01] LABS: Basophils Percent Auto 0.4 % (0.2-1.2); Eosinophils Absolute Auto 0.2 K/mm3 (0-0.3); Hematocrit 21.8 % (37.0-47.0); Hemoglobin 7.1 g/dL (12.0-15.0); Immature Granulocyte Absolute 0.09 K/mm3 (0.00-0.031); Immature Granulocyte Percent A 1.7 % (0-0.5); Lymphocytes Absolute Auto 0.56 K/mm3 (0.9-3.2); Lymphocytes Percent Auto 10.7 % (18.3-44.2); Mean Corpuscular HGB Conc 32.6 g/dl (32-36); Mean Corpuscular Hemoglobin 27.4 pg (26-34); Mean Corpuscular Volume 84.2 fl (80-100); Mean Platelet Volume 9.6 fl (7.4-10.4); Monocytes Absolute Auto 0.5 K/mm3 (0.1-0.6); Monocytes Percent Auto 10.3 % (2.6-8.5); Neutrophils Absolute Auto 3.9 K/mm3 (1.3-6.7); Neutrophils Percent Auto 73.9 % (45.5-73.1); Platelet Count Result 43 k/mm3 (150-375); Red Blood Count 2.59 M/mm3 (4.2-5.4); Red Cell Distribution Width 17.4 % (11.5-14.5); White Blood Count 5.3 K/mm3 (4.5-10.0)
[2021-12-27 07:10] LABS: INR 2.7; Potassium 3.4 mmol/L (3.4-5.0); Prothrombin Time 27.4 Seconds (11.1-14.7)
[2021-12-27 07:12] LABS: Alanine Aminotransferase 12 U/L (6-35); Albumin Level 2.6 g/dL (3.5-5.1); Alkaline Phosphatase 28 U/L (38-126); Anion Gap 4 mmol/L (8-16); Aspartate Amino Transferase 27 U/L (14-36); Blood Urea Nitrogen 16 mg/dL (7-17); Calcium 8.1 mg/dL (8.4-10.2); Carbon Dioxide 25 mmol/L (22-30); Chloride 97 mmol/L (98-107); Estimated CRCL calculation 84 ml/min; Estimated Glomerular Filt Rate > 60; Glucose 114 mg/dL (65-110); Magnesium 2.1 mg/dL (1.6-2.3); Sodium 126 mmol/L (137-145)
--- NOTE | 2021-12-27 08:21 | P.PNNP_ITS ---
Progress Note: A&P Assessment and Plan (1) Hyponatremia: Code(s): E87.1 - Hypo-osmolality and hyponatremia Status: Acute Assessment and Plan: * Hyponatremia. * TSH and cortisol are okay. * Serum and urine osmolality pending. SPEP pending. * The patient is on pantoprazole. She may need this because of her liver disease. * hypovolemia is also a possibility. * however, her liver disease makes her susceptible to volume overload * this is further complicated her liver cirrhosis in general -- her liver physiology makes her predisposed to chronic prerenal in spite of evidence of volume overload/ascites * hence, she could be intravascularly dry in spite of her fluid retention issues/volume overload * will be getting fluids in the form of blood products/IV medications * s/p 3% saline x 2 * Yesterday morning she was 119. This morning she is 126. * She is at risk for spontaneous over-correction so she is not on fluid restriction or salt tablets or Lasix. * Rate of rise of sodium is okay so far. * Will check another sodium level at noon. (2) Anemia: Qualifiers: Anemia type: iron deficiency Iron deficiency anemia type: chronic blood loss Qualified Code(s): D50.0 - Iron deficiency anemia secondary to blood loss (chronic) Code(s): D64.9 - Anemia, unspecified Status: Acute Assessment and Plan: * related to blood loss versus liver disease * PRBC transfusion per protocol * on PPI and octreotide * follow trend of H/H * GI recommendations noted (3) Altered mental status: Code(s): R41.82 - Altered mental status, unspecified Status: Acute Assessment and Plan: * improving * Still somewhat somnolent. (4) Sepsis: Qualifiers: Sepsis type: sepsis due to unspecified organism Sepsis acute organ dysfunction status: with acute organ dysfunction Severe sepsis acute organ dysfunction type: encephalopathy Severe sepsis shock status: with septic shock Qualified Code(s): A41.9 - Sepsis, unspecified organism; R65.21 - Severe sepsis with septic shock; G93.40 - Encephalopathy, unspecified Code(s): A41.9 - Sepsis, unspecified organism Status: Acute Assessment and Plan: * suspicion noted on presentation * no clear source at this time -- possible SBP(?) * follow culture data * She is not on any antibiotics. (5) Cirrhosis of liver: Qualifiers: Ascites presence: with ascites Hepatic cirrhosis type: alcoholic cirrhosis Qualified Code(s): K70.31 - Alcoholic cirrhosis of liver with ascites Code(s): K74.60 - Unspecified cirrhosis of liver Status: Chronic Assessment and Plan: * known issues/problems (6) Coagulopathy: Code(s): D68.9 - Coagulation defect, unspecified Status: Acute Assessment and Plan: * presumably due to liver disease +/- acute illness * s/p FFP and Vitamin K * follow INR Will continue to follow. Subjective Date/time seen: 12/27/21 08:21 Interval history: Maryjo is somewhat drowsy. Lying comfortably in the ICU bed. Exam Narrative: General: ill appearing female in NAD Heart: normal S1 and S2; no rub Lungs: clear to auscultation Abdomen: bowel sounds positive, soft. Somewhat distended. Extremities: no cyanosis or clubbing; 1 - 2+ edema Skin: No rash Objective Data Vital Signs Vital Signs: Vital Signs - 24 hr 12/26/21 08:30 12/26/21 08:45
--- NOTE | 2021-12-27 08:21 | PM.PNNEP ---
Progress Note: A&P Assessment and Plan (1) Hyponatremia: Code(s): E87.1 - Hypo-osmolality and hyponatremia Status: Acute Assessment and Plan: Hyponatremia. TSH and cortisol are okay. Serum and urine osmolality pending. SPEP pending. The patient is on pantoprazole. She may need this because of her liver disease. hypovolemia is also a possibility. however, her liver disease makes her susceptible to volume overload this is further complicated her liver cirrhosis in general -- her liver physiology makes her predisposed to chronic prerenal in spite of evidence of volume overload/ascites hence, she could be intravascularly dry in spite of her fluid retention issues/volume overload will be getting fluids in the form of blood products/IV medications s/p 3% saline x 2 Yesterday morning she was 119. This morning she is 126. She is at risk for spontaneous over-correction so she is not on fluid restriction or salt tablets or Lasix. Rate of rise of sodium is okay so far. Will check another sodium level at noon. (2) Anemia: Qualifiers: Anemia type: iron deficiency Iron deficiency anemia type: chronic blood loss Qualified Code(s): D50.0 - Iron deficiency anemia secondary to blood loss (chronic) Code(s): D64.9 - Anemia, unspecified Status: Acute Assessment and Plan: related to blood loss versus liver disease PRBC transfusion per protocol on PPI and octreotide follow trend of H/H GI recommendations noted (3) Altered mental status: Code(s): R41.82 - Altered mental status, unspecified Status: Acute Assessment and Plan: improving Still somewhat somnolent. (4) Sepsis: Qualifiers: Sepsis type: sepsis due to unspecified organism Sepsis acute organ dysfunction status: with acute organ dysfunction Severe sepsis acute organ dysfunction type: encephalopathy Severe sepsis shock status: with septic shock Qualified Code(s): A41.9 - Sepsis, unspecified organism; R65.21 - Severe sepsis with septic shock; G93.40 - Encephalopathy, unspecified Code(s): A41.9 - Sepsis, unspecified organism Status: Acute Assessment and Plan: suspicion noted on presentation no clear source at this time -- possible SBP(?) follow culture data She is not on any antibiotics. (5) Cirrhosis of liver: Qualifiers: Ascites presence: with ascites Hepatic cirrhosis type: alcoholic cirrhosis Qualified Code(s): K70.31 - Alcoholic cirrhosis of liver with ascites Code(s): K74.60 - Unspecified cirrhosis of liver Status: Chronic Assessment and Plan: known issues/problems (6) Coagulopathy: Code(s): D68.9 - Coagulation defect, unspecified Status: Acute Assessment and Plan: presumably due to liver disease +/- acute illness s/p FFP and Vitamin K follow INR Will continue to follow. Subjective Date/time seen: 12/27/21 08:21 Interval history: Maryjo is somewhat drowsy. Lying comfortably in the ICU bed. Exam Narrative: General: ill appearing female in NAD Heart: normal S1 and S2; no rub Lungs: clear to auscultation Abdomen: bowel sounds positive, soft. Somewhat distended. Extremities: no cyanosis or clubbing; 1 - 2+ edema Skin: No rash Objective Data Vital Signs Vital Signs: Vital Signs - 24 hr 12/26/21 08:30 12/26/21 08:45 12/26/21 09:00 Temperature 37.3 C 37.3 C 37.3 C Pulse Rate 78 82 76 Respiratory Rate 14 19 14 Blood Pressure 100/62 110/62 Pulse Oximetry 100 99 100 12/26/21 09:01 12/26/21 09:16 12/26/21 10:00 Temperature 37.3 C 37.3 C Pulse Rate 77 77 83 Respiratory Rate 13 13 20 Blood Pressure 100/64 90/62 L 90/74 L Pulse Oximetry 100 100 95 12/26/21 10:10 12/26/21 10:52 12/26/21 12:00 Temperature 37.1 C Pulse Rate 85 78 Respiratory Rate 14 Blood Pressure 95/57 L 90/55 L 91/59 L Pulse Oximetry 94
[2021-12-27] MEDS: THIAMINE HCL 200 MG/2 ML VIAL 100 MG IV PUSH (08:33)
[2021-12-27] MEDS: FOLIC ACID 1 MG/0.2 ML INJ IV PUSH (08:33)
[2021-12-27] MEDS: KCL 40 MEQ/WATER 100 ML 100 ML 25 ML IVPB (08:33)
--- NOTE | 2021-12-27 08:35 | WPDINTPN ---
Progress Note: A&P Assessment and Plan (1) Encephalopathy: Code(s): G93.40 - Encephalopathy, unspecified Status: Acute Assessment and Plan: Her head CT was negative and ammonia level was normal Could be secondary to sepsis and metabolic encephalopathy Improving as patient is now alert oriented x3 Continue to avoid sedative Monitor (2) Ascites: Qualifiers: Ascites type: due to alcoholic cirrhosis Qualified Code(s): K70.31 - Alcoholic cirrhosis of liver with ascites Code(s): R18.8 - Other ascites Status: Acute Assessment and Plan: Patient has had paracentesis done in the ER and 5 L fluid was removed. repeat paracentesis done12/26 and another 5 L fluid was removed. she will need additional paracentesis as she still has decent amount of ascites (3) Upper GI bleed: Code(s): K92.2 - Gastrointestinal hemorrhage, unspecified Status: Acute Assessment and Plan: Although there is no history of GI bleeding on presentation but considering patient has history of varices, upper GI bleed, Toshia-Haas tear in the past and now presents with hemoglobin, we will resume patient has bleeding 3 units PRBC transfusion ordered on the day of presentation She dropped her hemoglobin again yesterday was given 2 more units of PRBC Continue Serial hemoglobin Continue Octreotide and PPI drips GI has been consulted continueNPO (4) Anemia: Qualifiers: Anemia type: iron deficiency Iron deficiency anemia type: chronic blood loss Qualified Code(s): D50.0 - Iron deficiency anemia secondary to blood loss (chronic) Code(s): D64.9 - Anemia, unspecified Status: Acute Assessment and Plan: Multifactorial anemia see above (5) Cirrhosis of liver: Qualifiers: Ascites presence: with ascites Hepatic cirrhosis type: alcoholic cirrhosis Qualified Code(s): K70.31 - Alcoholic cirrhosis of liver with ascites Code(s): K74.60 - Unspecified cirrhosis of liver Status: Chronic Assessment and Plan: Patient has severe cirrhosis at baseline Ammonia level normal She has chronically elevated bilirubin level. Continue to monitor repeat ammonia level (6) Hyponatremia: Code(s): E87.1 - Hypo-osmolality and hyponatremia Status: Acute Assessment and Plan: Patient presented with sodium of 119. Nephrology was consulted Patient received 1 L saline bolus and will can you cautious amount of IV fluids was saline at 100 mL/hour She she has received 3% saline as per nephrology orders and sodium has improved She is NPO hence restricted on free water Continue to Monitor sodium q.4 hours Urine studies ordered (7) Coagulopathy: Code(s): D68.9 - Coagulation defect, unspecified Status: Acute Assessment and Plan: Secondary to liver disease She was 2 units of FFP 12/26 Vitamin K 10 mg was given Due to dropping hemoglobin I will give her additional 2 units of FFP Check fibrinogen level (8) Sepsis: Qualifiers: Sepsis type: sepsis due to unspecified organism Sepsis acute organ dysfunction status: with acute organ dysfunction Severe sepsis acute organ dysfunction type: encephalopathy Severe sepsis shock status: with septic shock Qualified Code(s): A41.9 - Sepsis, unspecified organism; R65.21 - Severe sepsis with septic shock; G93.40 - Encephalopathy, unspecified Code(s): A41.9 - Sepsis, unspecified organism Status: Acute Assessment and Plan: Patient met criteria for sepsis on presentation although source is not clear UA is negative, CT chest on pelvis does not show any significant abnormality except ascites Patient denies any abdominal pain and was not tender on exam Paracentesis was done and fluid does not suggest infection as she had only 99 PMNs She was empirically started on treatment for SBP with imipenem she did had a area of cellulitis on her lateral aspect of right upper thigh Caut
[2021-12-27] MEDS: rifAXIMin 550 MG TABLET PO ×2 (08:39→22:50)
[2021-12-27 08:42] LABS: Ammonia 21 umol/L (9-30)
[2021-12-27] MEDS: SODIUM CHLORIDE 0.9% IV 250 ML 30 ML IV CONT ×2 (09:44→15:20)
--- NOTE | 2021-12-27 11:07 | PM.IMPN ---
Progress Note: A&P Assessment and Plan (1) Encephalopathy: Code(s): G93.40 - Encephalopathy, unspecified Status: Acute Assessment and Plan: Her head CT was negative and ammonia level was normal Could be secondary to sepsis Avoid sedative Monitor 12/27: Appears to be completely resolved, mentation seems to be at baseline (2) Ascites: Qualifiers: Ascites type: due to alcoholic cirrhosis Qualified Code(s): K70.31 - Alcoholic cirrhosis of liver with ascites Code(s): R18.8 - Other ascites Status: Acute Assessment and Plan: Patient has had paracentesis done in the ER and 5 L fluid was removed. I requested ER provider to send fluid for studies including cell count Gram stain culture and albumin level She will likely need the repeat paracentesis as she still has significant amount of ascites exam 12/27: Paracentesis scheduled for tomorrow (3) Upper GI bleed: Code(s): K92.2 - Gastrointestinal hemorrhage, unspecified Status: Acute Assessment and Plan: Although there is no history of GI bleeding on presentation but considering patient has history of varices, upper GI bleed, Toshia-Haas tear in the past and now presents with low hemoglobin, we will assume patient has bleeding: ICU ordered- 2 units PRBC transfusion ordered Serial hemoglobin Octreotide and PPI drips Consult GI NPO FFP Vitamin K 12/27: Follow-up GI consultation, will discuss long-term treatment plans regarding liver transplant versus TIPS procedure versus code status change and goals of care discussion with palliative care. MELD-Na 31 (32% 90-day mortality risk) /MELD 25 (19.6% 90-daymortality risk), Child-Morrell score of 13. (4) Anemia: Qualifiers: Anemia type: iron deficiency Iron deficiency anemia type: chronic blood loss Qualified Code(s): D50.0 - Iron deficiency anemia secondary to blood loss (chronic) Code(s): D64.9 - Anemia, unspecified Status: Acute Assessment and Plan: Multifactorial anemia see above (5) Cirrhosis of liver: Qualifiers: Ascites presence: with ascites Hepatic cirrhosis type: alcoholic cirrhosis Qualified Code(s): K70.31 - Alcoholic cirrhosis of liver with ascites Code(s): K74.60 - Unspecified cirrhosis of liver Status: Chronic Assessment and Plan: Patient has severe cirrhosis at baseline Ammonia level normal 12/27: Defer management to GI, would like to get records from [facility] to see if patient is a candidate for liver transplant versus a TIPS procedure (6) Hyponatremia: Code(s): E87.1 - Hypo-osmolality and hyponatremia Status: Acute Assessment and Plan: Patient presented with sodium of 119. Nephrology consulted Patient received 1 L saline bolus and will can you cautious amount of IV fluids was saline at 100 mL/hour Although patient is overall volume overloaded she may be intravascularly volume depleted as evidenced by low blood pressure on presentation and elevated creatinine Monitor sodium q.4 hours If sodium does not improve, will try 3% saline Nephrology consulted Urine studies ordered 12/27: Improving, up to 126 today (7) Coagulopathy: Code(s): D68.9 - Coagulation defect, unspecified Status: Acute Assessment and Plan: Per cpr ambulance driver (8) Sepsis: Qualifiers: Sepsis acute organ dysfunction status: with acute organ dysfunction Sepsis type: sepsis due to unspecified organism Severe sepsis acute organ dysfunction type: encephalopathy Severe sepsis shock status: with septic shock Qualified Code(s): A41.9 - Sepsis, unspecified organism; R65.21 - Severe sepsis with septic shock; G93.40 - Encephalopathy, unspecified Code(s): A41.9 - Sepsis, unspecified organism Status: Acute Assessment and Plan: Currently being treated for questionable SBP with Primaxin (9) Bradycardia: Code(s): R00.1 - Bradycardia, unspecified Sta
[2021-12-27 11:09] LABS: Fibrinogen 100 mg/dl (215-510)
[2021-12-27 11:19] LABS: Glucose Point of Care 121 mg/dl (65-105)
[2021-12-27 13:08] LABS: Hematocrit 18.4 % (37.0-47.0)
[2021-12-27 13:13] LABS: Sodium 127 mmol/L (137-145)
--- NOTE | 2021-12-27 14:33 | WPDGIPROGNO ---
Progress Note: A&P Assessment and Plan (1) Decompensation of cirrhosis of liver: Code(s): K72.90 - Hepatic failure, unspecified without coma; K74.60 - Unspecified cirrhosis of liver Status: Acute Assessment and Plan: required paracentesis and still with ascites on antibiotics (2) Acute on chronic anemia: Code(s): D64.9 - Anemia, unspecified Status: Acute Assessment and Plan: still anemic but no overt gib given previous history of varices and MWT will assess with egd tomorrow (patient required blood transfusion) (3) Encephalopathy: Code(s): G93.40 - Encephalopathy, unspecified Status: Acute (4) Ascites: Qualifiers: Ascites type: due to alcoholic cirrhosis Qualified Code(s): K70.31 - Alcoholic cirrhosis of liver with ascites Code(s): R18.8 - Other ascites Status: Acute Assessment and Plan: no sbp may need more paracentesis (5) Hepatitis C: Qualifiers: Viral hepatitis chronicity: unspecified Code(s): B19.20 - Unspecified viral hepatitis C without hepatic coma Status: Acute Assessment and Plan: already treated (6) Coagulopathy: Code(s): D68.9 - Coagulation defect, unspecified Status: Acute Assessment and Plan: s/p vit k and ffp (7) Hyponatremia: Code(s): E87.1 - Hypo-osmolality and hyponatremia Status: Acute Assessment and Plan: continue to monitor (8) Esophageal varices: Code(s): I85.00 - Esophageal varices without bleeding Status: Acute Subjective Date/time seen: 12/27/21 14:33 Interval history: she is awake and alert today, no report of GIB but required blood transfusion, also FFP because elevated inr Review of Systems Review of Systems: All systems reviewed & are unremarkable except as noted in HPI and below Exam Const: General: ill appearing chronically HENMT: General nose exam: Normal nares present Eyes: General: appearance normal, both eyes and all related structures Neck: Neck: no JVD Resp: Auscultation: diminished lung sounds Cardio: Rate: regular rate Rhythm: regular rhythm GI: Inspection: non-distended GI Palp: Yes Soft to palpation Percussion: Yes Fluid wave present Auscultation: normal bowel sounds Neuro: Speech: normal speech Extrem: General: normal to inspection Psych: Affect: Anxious affect present Objective Data Vital Signs Vital Signs: Vital Signs - 24 hr 12/26/21 16:00 12/26/21 18:00 12/26/21 20:00 Temperature 98.6 F 98.7 F 98.3 F Pulse Rate 73 73 69 Respiratory Rate 12 13 13 Blood Pressure 94/59 L 93/60 L 88/56 L Pulse Oximetry 96 96 96 12/26/21 21:53 12/26/21 22:00 12/26/21 22:09 Temperature 97.8 F 97.8 F 97.7 F Pulse Rate 67 68 69 Respiratory Rate 12 13 12 Blood Pressure 82/53 L 85/58 L 85/58 L Pulse Oximetry 98 96 98 12/26/21 23:09 12/27/21 00:00 12/27/21 00:09 Temperature 97.5 F L 97.5 F L 97.4 F L Pulse Rate 66 66 66 Respiratory Rate 10 L 12 12 Blood Pressure 86/59 L 102/52 L 102/62 Pulse Oximetry 100 99 99 12/27/21 01:05 12/27/21 02:00 12/27/21 02:44 Temperature 97.2 F L 97.4 F L 97.4 F L Pulse Rate 69 70 65 Respiratory Rate 12 12 12 Blood Pressure 91/60 L 95/62 L 95/62 L Pulse Oximetry 99 99 97 12/27/21 02:59 12/27/21 03:59 12/27/21 04:00 Temperature 97.5 F L 97.4 F L 97.4 F L Pulse Rate 70 71 71 Respiratory Rate 14 12 12 Blood Pressure 93/63 L 96/68 L 96/68 L Pulse Oximetry 99 99 99 12/27/21 04:59 12/27/21 06:00 12/27/21 08:00 Temperature 97.5 F L 97.5 F L 97.5 F L Pulse Rate 66 66 67 Respiratory Rate 12 12 10 L Blood Pressure 87/59 L 87/59 L 98/64 L Pulse Oximetry 99 99 98 12/27/21 09:31 12/27/21 09:47 12/27/21 10:00 Temperature 97.5 F L 97.5 F L 97.5 F L Pulse Rate 77 67 68 Respiratory Rate 11 L 10 L 11 L Blood Pressure 96/74 L 95/67 L 97/63 L Pulse Oximetry 96 100 98 12/27/21 10:23 12/27/21 10:43 12/27/21 11:00 Temperature 97.4 F
[2021-12-27 17:13] LABS: Glucose Point of Care 125 mg/dl (65-105)
[2021-12-27 20:48] LABS: Hematocrit 19.4 % (37.0-47.0); Hemoglobin 6.5 g/dL (12.0-15.0)
[2021-12-27 20:50] LABS: Sodium 124 mmol/L (137-145)
[2021-12-27] MEDS: SODIUM CHLORIDE 3% 270 ML 45 ML IV CONT (22:48)
--- NOTE | 2021-12-27 22:50 | P.PNCROSS_ITS ---
Event Note Event Note Event Note: 12/27/2021 at 10:20 p.m. I was contacted by the hog slaughterer since request to arrange transfer the patient to [facility]. Patient was admitted on the with hypothermia and severe anemia hemoglobin a 5.4 with history of cirrhosis. Since admission patient has received a total of 7 units of packed red blood cells. 5 units of transfusion has occurred in the last 24 hours. Despite transfusion patient's hemoglobin is again below 7. Patient had paracentesis on both the and with a total of 10 L of clear yellow ascitic fluid removed. Cultures of fluid have been negative to date. Patient had been treated with empiric antibiotic therapy with Primaxin for possible SBP. Given the patient's recurrent anemia and worsening abdominal pain repeat CT scan was performed today demonstrated persistent massive ascites with new finding of layering hyperdense content which may reflect infected, proteinaceous or hemorrhagic material. CT also demonstrated findings concerning for left lower lobe possibly multifocal pneumonia. With prior CT from demonstrating pleural effusions and atelectasis. Given the patient's recurrent anemia and concern for possible hemorrhagic material within the abdomen it was felt the patient would be best served by transferring [facility] where the patient is managed by the hepatology service for possible angiogram to find source of blood loss. I contacted the transfer line at 22:40 and waiting for response. I received a return call at 11:[address] Hager from Gastroenterology. They stated that they did not feel it was a GI source of bleeding and recommended that the interventional radiology service or transplant service be contacted. I am awaiting a repeat call. Return call at 11:40 p.m. from the care transition coordinator stated that she had talked to the GI fellow who wanted the patient case discussed with the MICU fellow. This is a gastroenterology attending recommended general surgery consult here for possible exploratory surgery for the the patient's source of bleeding. The patient is a poor candidate for surgery given her cirrhosis large ascites and elevated INR. (she did received 2 units of FFP earlier today.) Patient would be benefitted from interventional angiography used to identify the source of bleeding but stool not have a bed for at least a couple of days. Have called the hog slaughterer update him on the course of events will continue with her current management will jerad aguilera for response from [facility]. Of note patient has not had any bowel movements, or hematemesis since admission. Proximally 60 minutes spent in transfer efforts.
[2021-12-28] VITALS (30 sets, daily range): BP systolic 77–111; BP diastolic 56–81; PULSE 79–102; RESP 10–30; TEMP 36.6–36.9; O2SAT 97–100
[2021-12-28 00:20] LABS: Glucose Point of Care 119 mg/dl (65-105)
[2021-12-28] MEDS: ALBUMIN HUMAN 25% 25 GM/100 ML 100 ML IVPB ×2 (00:33→05:29)
[2021-12-28 01:28] LABS: Hemoglobin 6.3 g/dL (12.0-15.0)
[2021-12-28 01:29] LABS: Hematocrit 18.7 % (37.0-47.0)
[2021-12-28 01:37] LABS: INR 2.9; Prothrombin Time 29.3 Seconds (11.1-14.7)
[2021-12-28] MEDS: MORPHINE SULFATE (*CRX) 2 MG/ML INJ IV PUSH ×2 (02:05→05:30)
[2021-12-28] MEDS: NOREPINEPHRINE 8 MG/D5W 250 ML 8 MG/250 ML BAG 9.38 MG IV CONT (04:00)
[2021-12-28 05:29] LABS: Basophils Absolute Auto 0.1 K/mm3 (0.0-0.1); Basophils Percent Auto 0.5 % (0.2-1.2); Eosinophils Absolute Auto 0.4 K/mm3 (0-0.3); Eosinophils Percent Auto 3.4 % (0-4.4); Immature Granulocyte Absolute 0.64 K/mm3 (0.00-0.031); Immature Platelet Fraction Pct 2.6 % (0.9-11.2); Lymphocytes Absolute Auto 1.13 K/mm3 (0.9-3.2); Lymphocytes Percent Auto 10.6 % (18.3-44.2); Mean Corpuscular HGB Conc 33.8 g/dl (32-36); Mean Corpuscular Hemoglobin 29.3 pg (26-34); Mean Corpuscular Volume 86.6 fl (80-100); Mean Platelet Volume 9.6 fl (7.4-10.4); Monocytes Absolute Auto 1.2 K/mm3 (0.1-0.6); Monocytes Percent Auto 11.6 % (2.6-8.5); Neutrophils Absolute Auto 7.2 K/mm3 (1.3-6.7); Neutrophils Percent Auto 67.9 % (45.5-73.1); Nucleated Red Blood Cells Absolute Auto 0.1 K/mm3 (0.0-0.012); Nucleated Red Blood Cells Perc 0.5 % (0.0-0.2); Platelet Count Result 71 k/mm3 (150-375); Red Blood Count 2.32 M/mm3 (4.2-5.4); Red Cell Distribution Width 15.9 % (11.5-14.5); White Blood Count 10.7 K/mm3 (4.5-10.0)
[2021-12-28] MEDS: LACTULOSE 20 GM/30 ML UDC PO (05:31)
[2021-12-28 05:35] LABS: INR 2.5; Prothrombin Time 25.9 Seconds (11.1-14.7)
[2021-12-28 05:40] LABS: Alanine Aminotransferase 10 U/L (6-35); Albumin Level 2.5 g/dL (3.5-5.1); Alkaline Phosphatase 26 U/L (38-126); Ammonia 27 umol/L (9-30); Anion Gap 4 mmol/L (8-16); Aspartate Amino Transferase 22 U/L (14-36); Bilirubin,Total 9.5 mg/dL (0.2-1.3); Blood Urea Nitrogen 13 mg/dL (7-17); Calcium 7.8 mg/dL (8.4-10.2); Carbon Dioxide 24 mmol/L (22-30); Chloride 99 mmol/L (98-107); Estimated CRCL calculation 79 ml/min; Estimated Glomerular Filt Rate > 60; Glucose 163 mg/dL (65-110); Phosphorus 3.1 mg/dL (2.5-4.5); Potassium 3.9 mmol/L (3.4-5.0); Sodium 127 mmol/L (137-145)
[2021-12-28 05:48] LABS: Glucose Point of Care 141 mg/dl (65-105)
[2021-12-28 05:54] LABS: Hematocrit 20.1 % (37.0-47.0); Hemoglobin 6.8 g/dL (12.0-15.0)
[2021-12-28] MEDS: FOLIC ACID 1 MG/0.2 ML INJ IV PUSH (07:58)
[2021-12-28] MEDS: THIAMINE HCL 200 MG/2 ML VIAL 100 MG IV PUSH (07:58)
[2021-12-28] MEDS: PANTOPRAZOLE SODIUM IV 80 MG in SODIUM CHLORIDE 0.9% IV 500 ML 50 MG IV CONT (08:10)
[2021-12-28 09:18] LABS: Appearance Peritoneal Fluid Bloody (Clear); Color Peritoneal Fluid Red (Colorless); Lymphocytes Peritoneal Fluid 32 %; Source Peritoneal Fluid Peritoneal Fluid
[2021-12-28 09:19] LABS: Monocytes Peritoneal Fluid 6 %; Neutrophils Peritoneal Fluid 62 % (0-25)
--- NOTE | 2021-12-28 09:20 | WPDINTPN ---
Progress Note: A&P Assessment and Plan (1) Anemia: Qualifiers: Anemia type: iron deficiency Iron deficiency anemia type: chronic blood loss Qualified Code(s): D50.0 - Iron deficiency anemia secondary to blood loss (chronic) Code(s): D64.9 - Anemia, unspecified Status: Acute Assessment and Plan: Bloody paracentesis this morning on 12/28, likely bleeding in the peritoneal cavity -patient will probably require Interventional Radiology with angiogram and embolization. -our Interventional Radiology at [place] and she I agree with the plan for angiogram and embolization -patient has received multiple units of packed RBCs, FFs -will give vitamin K as INR is 2.5 -obtain DIC panel, (2) Encephalopathy: Code(s): G93.40 - Encephalopathy, unspecified Status: Acute Assessment and Plan: Her head CT was negative and ammonia level was normal Could be secondary to sepsis, hyponatremia, anemia Avoid sedatives IMPROVING Continue to Monitor (3) Ascites: Qualifiers: Ascites type: due to alcoholic cirrhosis Qualified Code(s): K70.31 - Alcoholic cirrhosis of liver with ascites Code(s): R18.8 - Other ascites Status: Acute Assessment and Plan: Patient has had paracentesis done in the ER on 12/25 with removal of 5 L of clear ascitic fluid 12/26: Repeat paracentesis with removal of 5 L of clear ascitic fluid. 12/28; repeat paracentesis with removal of 5 L of reddish cloudy fluid -patient will be given albumin post paracentesis (4) Upper GI bleed: Code(s): K92.2 - Gastrointestinal hemorrhage, unspecified Status: Acute Assessment and Plan: Although there is no history of GI bleeding on presentation but considering patient has history of varices, upper GI bleed, Toshia-Haas tear in the past and now presents with hemoglobin Patient has received a total of 10 units of packed RBCs and 6 units of FFP Continue to monitor serial H&H Continue Octreotide and PPI drips Appreciate GI following the patient Keep patient NPO (5) Cirrhosis of liver: Qualifiers: Ascites presence: with ascites Hepatic cirrhosis type: alcoholic cirrhosis Qualified Code(s): K70.31 - Alcoholic cirrhosis of liver with ascites Code(s): K74.60 - Unspecified cirrhosis of liver Status: Chronic Assessment and Plan: Patient has severe cirrhosis at baseline Ammonia level normal -continue lactulose and rifaximin - (6) Hyponatremia: Code(s): E87.1 - Hypo-osmolality and hyponatremia Status: Acute Assessment and Plan: Patient presented with sodium of 119. Nephrology consulted Patient received 1 L saline bolus and will can you cautious amount of IV fluids was saline at 100 mL/hour Although patient is overall volume overloaded she may be intravascularly volume depleted as evidenced by low blood pressure on presentation and elevated creatinine Monitor sodium q.4 hours Patient did receive 3% saline per Nephrology Appreciate nephrology evaluation and recommendations (7) Coagulopathy: Code(s): D68.9 - Coagulation defect, unspecified Status: Acute Assessment and Plan: Secondary to liver disease Patient has been transfused FFP Will give vitamin K 10 mg IV piggyback Monitor coags (8) Sepsis: Qualifiers: Sepsis type: sepsis due to unspecified organism Sepsis acute organ dysfunction status: with acute organ dysfunction Severe sepsis acute organ dysfunction type: encephalopathy Severe sepsis shock status: with septic shock Qualified Code(s): A41.9 - Sepsis, unspecified organism; R65.21 - Severe sepsis with septic shock; G93.40 - Encephalopathy, unspecified Code(s): A41.9 - Sepsis, unspecified organism Status: Acute Assessment and Plan: Patient meets criteria for sepsis UA is negative, CT chest on pelvis does not show any significant abnormality except ascites 12/25: Paracentesis fluid gram stain wa
[2021-12-28] MEDS: rifAXIMin 550 MG TABLET PO (09:26)
[2021-12-28 09:45] LABS: INR 2.1; Prothrombin Time 22.6 Seconds (11.1-14.7)
[2021-12-28 09:46] LABS: Partial Thromboplastin Time 38.2 SECONDS (22.3-36.8)
[2021-12-28 09:53] LABS: Fibrinogen 105 mg/dl (215-510)
[2021-12-28] MEDS: ALBUMIN HUMAN 25% 25 GM/100 ML 200 ML IVPB (09:54)
[2021-12-28] MEDS: PHYTONADIONE ADULT INJ 10 MG in DEXTROSE 5% IN WATER 50 ML 100 MG IVPB (11:31)
[2021-12-28 11:36] LABS: EDCOVIDSCREEN Negative (Negative)
[2021-12-28 11:44] LABS: Glucose Point of Care 124 mg/dl (65-105)
--- NOTE | 2021-12-28 11:45 | PM.TDS ---
Transfer Discharge Sum: Prov Provider Date of admission: 12/25/21 11:51 Primary care physician: Haydee Connolly Admitting clinician: Jory Mendez DO Consults: 12/25/21 Consult to Physician Routine Comment: Consulting Provider: India Rizvi call center nurse/MD group to consult: Nephrology Reason for consultation: FELIPE, Hyponatremia Has provider been notified: Yes 12/25/21 11:53 Consult to Physician Routine Comment: Consulting Provider: Fabian Bruce Reason for consultation: AMS, Ascites, hyponatremia, anemia Has provider been notified: Yes 12/25/21 11:54 Consult to Physician Routine Comment: Consulting Provider: Rogers Corea Reason for consultation: Ascites, liver failure Has provider been notified: Yes DS: Admitting Diagnosis Discharge Date 12/28/2021 Admitting Diagnosis Altered mental status DS: Discharge Diagnosis Discharge Diagnosis (1) Encephalopathy: Code(s): G93.40 - Encephalopathy, unspecified Status: Acute Assessment and Plan: Her head CT was negative and ammonia level was normal Concern for sepsis Avoid sedative Monitor Treated with broad-spectrum antibiotics (2) Ascites: Qualifiers: Ascites type: due to alcoholic cirrhosis Qualified Code(s): K70.31 - Alcoholic cirrhosis of liver with ascites Code(s): R18.8 - Other ascites Status: Acute Assessment and Plan: Patient has had paracentesis done in the ER and 5 L fluid was removed. Patient had paracentesis twice (3) Upper GI bleed: Code(s): K92.2 - Gastrointestinal hemorrhage, unspecified Status: Acute Assessment and Plan: Concern for GI bleed versus intra-abdominal bleed status post paracentesis twice Although there is no history of GI bleeding on presentation but considering patient has history of varices, upper GI bleed, Toshia-Haas tear in the past and now presents with low hemoglobin, we will assume patient has bleeding: Worsening overnight 3rd paracentesis shows hemorrhagic ascites Patient will be transferred to tertiary center (4) Anemia: Qualifiers: Anemia type: iron deficiency Iron deficiency anemia type: chronic blood loss Qualified Code(s): D50.0 - Iron deficiency anemia secondary to blood loss (chronic) Code(s): D64.9 - Anemia, unspecified Status: Acute Assessment and Plan: Multifactorial anemia see above acute worsening of chronic anemia complicated by acute blood loss anemia Status multiple unit blood transfusion fresh frozen plasma Patient received more than 10 units of blood and multiple units of fresh frozen plasma (5) Cirrhosis of liver: Qualifiers: Ascites presence: with ascites Hepatic cirrhosis type: alcoholic cirrhosis Qualified Code(s): K70.31 - Alcoholic cirrhosis of liver with ascites Code(s): K74.60 - Unspecified cirrhosis of liver Status: Chronic Assessment and Plan: Patient has severe cirrhosis at baseline Ammonia level normal GI consult e (6) Hyponatremia: Code(s): E87.1 - Hypo-osmolality and hyponatremia Status: Acute Assessment and Plan: Patient presented with sodium of 119. Nephrology consulted Patient received 1 L saline bolus and will can you cautious amount of IV fluids was saline at 100 mL/hour Although patient is overall volume overloaded she may be intravascularly volume depleted as evidenced by low blood pressure on presentation and elevated creatinine (7) Coagulopathy: Code(s): D68.9 - Coagulation defect, unspecified Status: Acute Assessment and Plan: Probably related to liver disease (8) Sepsis: Qualifiers: Sepsis type: sepsis due to unspecified organism Sepsis acute organ dysfunction status: with acute organ dysfunction Severe sepsis acute organ dysfunction type: encephalopathy Severe sepsis shock status: with septic shock Qualified Code(s): A41.9 - Sepsis, unspecifi
--- NOTE | 2021-12-28 12:25 | WPDGIPROGNO ---
Progress Note: A&P Assessment and Plan (1) Acute on chronic anemia: Code(s): D64.9 - Anemia, unspecified Status: Acute Assessment and Plan: consistent with hemorrhagic ascites (confirmed after paracentesis), no signs of upper GIB (no melena or hematemesis)- patient received several blood products and ffp patient was already accepted at tertiary center ([facility]), will need Interventional Radiology with angiogram and embolization. no need to proceed with egd right now she is sick (2) Hemorrhagic ascites: Code(s): R18.8 - Other ascites Status: Acute Assessment and Plan: cause of persistent anemia she is also coagulopathic from decompensated liver disease (3) Shock circulatory: Code(s): R57.9 - Shock, unspecified Status: Acute Assessment and Plan: s/p blood products, levophed (4) Decompensation of cirrhosis of liver: Code(s): K72.90 - Hepatic failure, unspecified without coma; K74.60 - Unspecified cirrhosis of liver Status: Acute (5) Coagulopathy: Code(s): D68.9 - Coagulation defect, unspecified Status: Acute Assessment and Plan: s/p ffp and cryo (6) Hyponatremia: Code(s): E87.1 - Hypo-osmolality and hyponatremia Status: Acute (7) Pancytopenia: Code(s): D61.818 - Other pancytopenia Status: Acute (8) History of alcohol abuse: Code(s): F10.11 - Alcohol abuse, in remission Status: Inactive Subjective Date/time seen: 12/28/21 12:25 Interval history: noted more distended abdomen and also hypotension, started on levophed with persistent anemia despite blood transfusion (she received 8 units prbc since admission along with ffp). CT scan showed worsening ascites with proteinaceous or hemorrhagic material fluid- diagnostic paracentesis today showed obvious blood. No report of any melena or hematemesis. Review of Systems Review of Systems: All systems reviewed & are unremarkable except as noted in HPI and below Exam Const: Other: sick, on pressors HENMT: General nose exam: Normal nares present Eyes: Other: icteric sclerae Neck: Neck: supple Resp: Auscultation: diminished lung sounds Cardio: Rate: regular rate GI: GI Palp: Yes Tenderness to palpation present (GI) Percussion: Yes Fluid wave present Auscultation: normal bowel sounds Skin: Other: jaundice Neuro: Speech: normal speech Extrem: General: pedal edema Psych: Affect: Anxious affect present Objective Data Vital Signs Vital Signs: Vital Signs - 24 hr 12/27/21 14:00 12/27/21 15:17 12/27/21 15:33 Temperature 97.7 F 97.8 F 97.8 F Pulse Rate 73 74 74 Respiratory Rate 11 L 12 10 L Blood Pressure 91/63 L 96/67 L 86/63 L Pulse Oximetry 96 96 97 12/27/21 16:00 12/27/21 16:33 12/27/21 17:33 Temperature 97.9 F 97.9 F 98.0 F Pulse Rate 75 75 77 Respiratory Rate 10 L 10 L 22 H Blood Pressure 88/61 L 88/61 L 87/61 L Pulse Oximetry 98 95 99 12/27/21 17:51 12/27/21 18:00 12/27/21 18:11 Temperature 98.0 F 98.0 F 98.0 F Pulse Rate 75 74 74 Respiratory Rate 18 24 H 10 L Blood Pressure 86/61 L 86/57 L 86/57 L Pulse Oximetry 99 95 92 12/27/21 18:26 12/27/21 19:26 12/27/21 19:43 Temperature 98.1 F 96.2 F L Pulse Rate 74 78 74 Respiratory Rate 12 25 H 12 Blood Pressure 88/52 L 89/60 L Pulse Oximetry 93 94 93 12/27/21 19:56 12/27/21 20:00 12/27/21 22:00 Temperature 96.2 F L Pulse Rate 77 78 80 Respiratory Rate 21 H 13 Blood Pressure 85/61 L 84/63 L Pulse Oximetry 20 L 99 12/27/21 22:28 12/27/21 22:44 12/27/21 23:44 Temperature 98.4 F 98.4 F 98.3 F Pulse Rate 83 83 83 Respiratory Rate 16 30 H 15 Blood Pressure 84/63 L 87/63 L 87/63 L Pulse Oximetry 99 100 99 12/27/21 23:54 12/28/21 00:00 12/28/21 00:29 Temperature 98.3 F 98.3 F Pulse Rate 85 85 83 Respiratory Rate 21 H 23 H Blood Pressure 84/63 L 84/63 L Pulse Oximetry 98 98 12/28/21 01:49 12/28/21 01:51 12/28/21 02:00 Temperat
[2021-12-28 14:44] LABS: Albumin Peritoneal Fluid 0.4 g/dL
[2021-12-29 13:44] LABS: Osmolality, Urine 404 mOsm/kg (50-1200)
[2021-12-29 16:32] LABS: Alpha 1 Globulin 0.2 g/dL (0.2-0.3); Alpha 2 Globulin 0.4 g/dL (0.5-0.9); Beta 1 Globulin 0.2 g/dL (0.4-0.6); Gamma Globulin 1.6 g/dL (0.8-1.7); Protein, Total 5.7 g/dL (6.1-8.1)
[2022-01-01 11:16] LABS: Glucose Peritoneal Fluid 83 mg/dL; LDH Peritoneal Fluid 65 U/L (<63); Total Protein Peritoneal Fluid <3.0 g/dL
[2022-01-02 05:48] LABS: Total Protein/Creatinine Ratio 385 mg/g creat (21-161)
[2022-01-03 12:14] LABS: Creatinine, Random Urine 96
== END 2021-12-28 12:30 | disposition short-term general hospital (02) | DRG 720 ==
LOC: ANHED 10:20 → ANHICU 12:51
PROVIDERS: Internal Medicine; Internal Medicine Nephrology; Admitting Provider Student in an Organized Health Care Education/Training Program; Emergency Provider Nurse Practitioner Family; Visit Provider Internal Medicine
DX: A41.9 Sepsis, unspecified organism (principal); R65.21 Severe sepsis with septic shock; G93.41 Metabolic encephalopathy; Z20.822 Contact with and (suspected) exposure to COVID-19; R00.1 Bradycardia, unspecified; I95.9 Hypotension, unspecified; R18.8 Other ascites; K70.31 Alcoholic cirrhosis of liver with ascites; E87.1 Hypo-osmolality and hyponatremia; D68.4 Acquired coagulation factor deficiency; D50.0 Iron deficiency anemia secondary to blood loss (chronic); K21.9 Gastro-esophageal reflux disease without esophagitis; F17.210 Nicotine dependence, cigarettes, uncomplicated; K71.10 Toxic liver disease with hepatic necrosis, without coma; K92.2 Gastrointestinal hemorrhage, unspecified; K76.6 Portal hypertension; D61.818 Other pancytopenia; E87.6 Hypokalemia; F10.10 Alcohol abuse, uncomplicated; R62.7 Adult failure to thrive; I85.00 Esophageal varices without bleeding; R68.0 Hypothermia, not associated with low environmental temperature; L53.9 Erythematous condition, unspecified; I95.89 Other hypotension; R57.8 Other shock; Z86.19 Personal history of other infectious and parasitic diseases; Z68.22 Body mass index [BMI] 22.0-22.9, adult
CPT/HCPCS: 36415; 36430; 36569; 49083; 51701; 70450; 74176; 74177; 80048; 80053; 80307; 81001; 81025; 81050; 82042; 82140; 82533; 82550; 82570; 82945; 82948; 83605; 83615; 83735; 83880; 83930; 83935; 84100; 84155; 84156; 84157; 84165; 84166; 84295; 84300; 84439; 84443; 84480; 84484; 84540; 85014; 85018; 85025; 85055; 85380; 85384; 85610; 85730; 86850; 86900; 86901; 86920; 87070; 87075; 87205; 87426; 88104; 88108; 88305; 89051; 93005; 99285; A9270; C1751; C9113; C9803; J0461; J0743; J1956; J2270; J2354; J2405; J2550; J3411; J3430; J3475; J3480; J7030; J7040; J7050; J7060; J7131; P9012; P9016; P9017; P9047; Q9967

== ENCOUNTER 2022-01-29 14:25 | Emergency (ER) | payer OTHER, SELFPAY ==
[2022-01-29] VITALS (10 sets, daily range): BP systolic 108–126; BP diastolic 66–77; PULSE 99–124; RESP 11–99; TEMP 36.6; O2SAT 98–100
[2022-01-29 14:37] LABS: Glucose Point of Care 142 mg/dl (65-105)
[2022-01-29 14:48] LABS: Basophils Percent Auto 0.4 % (0.2-1.2); Eosinophils Absolute Auto 0.1 K/mm3 (0-0.3); Hematocrit 22.9 % (37.0-47.0); Hemoglobin 7.9 g/dL (12.0-15.0); Immature Granulocyte Absolute 0.08 K/mm3 (0.00-0.031); Immature Granulocyte Percent A 1.1 % (0-0.5); Lymphocytes Absolute Auto 0.67 K/mm3 (0.9-3.2); Lymphocytes Percent Auto 9.4 % (18.3-44.2); Mean Corpuscular HGB Conc 34.5 g/dl (32-36); Mean Corpuscular Hemoglobin 35.1 pg (26-34); Mean Corpuscular Volume 101.8 fl (80-100); Mean Platelet Volume 10.1 fl (7.4-10.4); Monocytes Percent Auto 14.6 % (2.6-8.5); Neutrophils Absolute Auto 5.2 K/mm3 (1.3-6.7); Neutrophils Percent Auto 73.5 % (45.5-73.1); Platelet Count Result 76 k/mm3 (150-375); Red Blood Count 2.25 M/mm3 (4.2-5.4); Red Cell Distribution Width 20.9 % (11.5-14.5); White Blood Count 7.1 K/mm3 (4.5-10.0)
[2022-01-29 14:59] LABS: Alanine Aminotransferase 42 U/L (6-35); Albumin Level 3.2 g/dL (3.5-5.1); Alkaline Phosphatase 198 U/L (38-126); Aspartate Amino Transferase 73 U/L (14-36); Bilirubin,Total 10.5 mg/dL (0.2-1.3); Blood Urea Nitrogen 15 mg/dL (7-17); Calcium 8.2 mg/dL (8.4-10.2); Carbon Dioxide 26 mmol/L (22-30); Chloride 83 mmol/L (98-107); Estimated CRCL calculation 75 ml/min; Estimated Glomerular Filt Rate > 60; Glucose 139 mg/dL (65-110); Magnesium 1.7 mg/dL (1.6-2.3); Phosphorus 3.3 mg/dL (2.5-4.5); Potassium 3.6 mmol/L (3.4-5.0)
[2022-01-29 15:01] LABS: Beta-Hydroxybutyrate/Acetoacetate 0.04 mmol/L (0.02-0.27)
[2022-01-29 15:02] LABS: Anion Gap 13 mmol/L (8-16); Sodium 122 mmol/L (137-145)
[2022-01-29 15:14] LABS: Ethanol < 10 mg/dL (<10)
[2022-01-29 15:14] LABS: Alveolar/Arterial O2 Gradient 10.8 mmHg; Base Excess ABG 5.3 mEq/l (+/-2.0); Fractional Inspired Oxygen 21 %; HCO3 ABG 26.9 mEq/l (22.0-26.0); Methemoglobin ABG 0.1 %THb (0-1.5); Oxygen Content ABG 11.5 %vol (16.0-22.0); Oxygen Saturation ABG 98.6 % (95.0-100.0); Oxyhemoglobin 95.8 % THb (90.0-100.0); PCO2 ABG 28.1 mmHg (35.0-45.0); PO2 ABG 105.3 mmHg (80.0-100.0); PO2 FiO2 Ratio Arterial Blood 5.01 %; Reduced Hemoglobin 2.1 %THb (0-5.0); Total Hemoglobin 8.4 g/dL (12.0-18.0)
[2022-01-29 15:16] LABS: pH ABG 7.599 (7.350-7.450)
[2022-01-29 15:17] LABS: Modified Allen's Test Pass; Site Drawn LEFT RADIAL
[2022-01-29 16:02] LABS: Ammonia 20 umol/L (9-30)
[2022-01-29 16:05] LABS: INR 1.9
[2022-01-29 16:06] LABS: Partial Thromboplastin Time 35.2 SECONDS (22.3-36.8)
[2022-01-29 16:44] LABS: Appearance Urine Clear (Clear); Bilirubin Urine 1+ (Negative); Blood Urine Negative (Negative); Color Urine Yellow (Yellow); Glucose Urine UA Negative (Negative); Ketones Urine Negative (Negative); Leukocyte Esterase Ur Negative LEU/UL (Negative); Nitrate Urine Negative (Negative); Protein Urine Negative (Negative)
[2022-01-29 17:00] LABS: Add Urine Microscopic? YES; Bacteria Urine 1+ /hpf; Mucus Urine Rare /lpf; RBC Urine 0-2 /hpf (0-2); Squamous Epithelial Cell Urine Few /hpf (Few); WBC Urine 0-3 /hpf
--- NOTE | 2022-01-29 17:20 | ED.GENADULT ---
HPI - General Adult General Chief complaint: Recheck/Abnormal Lab/Rx Stated complaint: need my blood sugar checked Time Seen by Provider: 01/29/22 14:46 History of Present Illness HPI narrative: Patient is a 46-year-old female who presents ER for evaluation of her blood sugar. 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 She sees Dr. Josefina Garg at [facility] for her hepatology care. She reports she is recently hospitalized related to hemorrhagic ascites at [facility]. While she was there she was receiving IV insulin at times for her blood sugar. When she was discharged she was not sent home with anything to check her blood sugar and she is not sent home with insulin. She has become concerned that she may require it. Patient is jaundiced but reports she has had chronic jaundice over the last 6 months to a year. She reports compliance with home medications. She reports she is scheduled for an outpatient paracentesis at [facility] in 2 days. She has no new abdominal pain. No fevers or chills or sweats. She has had no recent falls. Her mother is present and think she has been falling asleep a little bit more frequently than typical. No new alteration of mental status. Related Data Home Medications Medication Instructions Recorded Confirmed furosemide 40 mg tablet (Lasix) 40 mg PO DAILY 12/25/21 12/25/21 pantoprazole 40 mg tablet,delayed 40 mg PO BID 12/25/21 12/25/21 release spironolactone 100 mg tablet 100 mg PO DAILY 12/25/21 12/25/21 Allergies Allergy/AdvReac Type Severity Reaction Status Date / Time azithromycin Allergy Intermediate Hives / Verified 01/29/22 16:27 Red Face erythromycin base Allergy Unknown Rash Verified 01/29/22 16:27 Penicillins Allergy Unknown Swelling Verified 01/29/22 16:27 Review of Systems Review of Systems: All systems reviewed & are unremarkable except as noted in HPI and below Constitutional: Constitutional: Denies chills, Reports fatigue and Denies fever(s) ENT: Denies nasal congestion and Denies sore throat Cardiovascular: Cardiovascular: Denies chest pain, Denies rapid heart rate and Denies radiating jaw, neck or arm pain Respiratory: Respiratory: Denies cough, Denies dyspnea and Denies wheezing Gastrointestinal: Gastrointestinal: Reports abdominal pain (Chronic), Reports bloating (Chronic related to ascites), Denies constipation, Denies nausea and Denies vomiting Genitourinary: Genitourinary: Denies nocturia and Denies dysuria Integumentary/Breasts: Skin/Breast: Denies erythema and Denies rash Comments: Jaundice which is chronic Neurologic: Denies syncope, Denies headache(s), Denies focal weakness and Denies numbness PMFSH Past Medical History Medical History (Updated 01/29/22 @ 18:31 by Justyn Weiss MD) Acute on chronic anemia [place] esophagus Cirrhosis Decompensation of cirrhosis of liver DIC syndrome Esophageal varices Banded at [facility] in March 2020. Gastroesophageal reflux disease Hemorrhagic ascites Hepatitis C Patient reportedly completed treatment for same. History of alcohol abuse She has abstained from using alcohol since November 2019. 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 History of seizures Shock circulatory Thrombocytopenia Surgical History Surgical History History of esophagogastroduodenoscopy (EGD) Emergent eGD 09/06/2020 due to large volume upper GI blood loss with hemorrhagic shock demonstrated large Toshia-Haas tear in the gastric cardia History of tonsillectomy Family History Family History Other Cancer Social History Social History (Updated 12/25/21 @ 16:40 by Miguel Lima MD) Social History: The patient is currently living in [place] with her mother. 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 She has a history of IV methamphetamine u
--- NOTE | 2022-01-29 17:34 | PC.NURSE ---
Pt c/o lower abdominal pain that has been present for several months. Asked if the pain was worse, and states, she's tired of dealing with it . Dr. Weiss made aware.
[2022-01-29] MEDS: HYDROcodone/acetaminophen (*CRX) 5-325 MG TABLET 1 TAB PO (18:35)
== END 2022-01-29 18:50 | disposition home or self-care (01) ==
PROVIDERS: Emergency Provider Emergency Medicine
DX: K72.10 Chronic hepatic failure without coma (principal); R10.9 Unspecified abdominal pain; G89.29 Other chronic pain; K70.30 Alcoholic cirrhosis of liver without ascites; K22.70 Barrett's esophagus without dysplasia; K21.9 Gastro-esophageal reflux disease without esophagitis; Z86.19 Personal history of other infectious and parasitic diseases; F17.210 Nicotine dependence, cigarettes, uncomplicated
CPT/HCPCS: 36415; 36600; 80053; 80307; 81001; 82010; 82140; 82375; 82805; 82948; 83050; 83735; 84100; 85025; 85610; 85730; 99283; A9270

== ENCOUNTER 2022-04-09 12:43 | Emergency (ER) | payer OTHER, SELFPAY ==
[2022-04-09 12:58] VITALS: BP 96/53; PULSE 86; RESP 20; TEMP 36.7; O2SAT 100
[2022-04-09 13:34] LABS: Alanine Aminotransferase 20 U/L (6-35); Albumin Level 3.1 g/dL (3.5-5.1); Alkaline Phosphatase 262 U/L (38-126); Anion Gap 10 mmol/L (8-16); Aspartate Amino Transferase 39 U/L (14-36); Bilirubin,Total 5.5 mg/dL (0.2-1.3); Blood Urea Nitrogen 10 mg/dL (7-17); Calcium 8.1 mg/dL (8.4-10.2); Carbon Dioxide 26 mmol/L (22-30); Chloride 94 mmol/L (98-107); Estimated CRCL calculation 87 ml/min; Estimated Glomerular Filt Rate > 60; Glucose 83 mg/dL (65-110); INR 1.6; Lipase 372 U/L (23-300); Potassium 3.5 mmol/L (3.4-5.0); Prothrombin Time 18.2 Seconds (11.1-14.7); Sodium 130 mmol/L (137-145)
[2022-04-09 13:38] LABS: Basophils Absolute Auto 0.1 K/mm3 (0.0-0.1); Basophils Percent Auto 1.1 % (0.2-1.2); Eosinophils Absolute Auto 0.1 K/mm3 (0-0.3); Hematocrit 27.4 % (37.0-47.0); Hemoglobin 9.2 g/dL (12.0-15.0); Immature Granulocyte Absolute 0.05 K/mm3 (0.00-0.031); Immature Granulocyte Percent A 0.9 % (0-0.5); Lymphocytes Absolute Auto 0.53 K/mm3 (0.9-3.2); Lymphocytes Percent Auto 9.5 % (18.3-44.2); Mean Corpuscular HGB Conc 33.6 g/dl (32-36); Mean Corpuscular Hemoglobin 33.3 pg (26-34); Mean Corpuscular Volume 99.3 fl (80-100); Mean Platelet Volume 10.4 fl (7.4-10.4); Monocytes Percent Auto 17.7 % (2.6-8.5); Neutrophils Absolute Auto 3.8 K/mm3 (1.3-6.7); Neutrophils Percent Auto 68.8 % (45.5-73.1); Platelet Count Result 56 k/mm3 (150-375); Red Blood Count 2.76 M/mm3 (4.2-5.4); Red Cell Distribution Width 18.6 % (11.5-14.5); White Blood Count 5.6 K/mm3 (4.5-10.0)
[2022-04-09 15:16] VITALS: BP 93/61
--- NOTE | 2022-04-09 15:27 | ED.GENADULT ---
HPI - General Adult General Chief complaint: Abdominal Pain Stated complaint: abd leaking fluid Time Seen by Provider: 04/09/22 14:49 History of Present Illness HPI narrative: Patient is a 46-year-old female who presents ER with weeping from her left lower quadrant abdominal wound. Patient underwent paracentesis last week. She started weeping peritoneal fluid. She also has some blisters along the lines of tape that was present previously. No fevers or chills. No abdominal pain. Fluid is not cloudy. She has not called her GI physician at [facility] who performed the tap. Related Data Home Medications Medication Instructions Recorded Confirmed furosemide 40 mg tablet (Lasix) 40 mg PO DAILY 12/25/21 12/25/21 pantoprazole 40 mg tablet,delayed 40 mg PO BID 12/25/21 12/25/21 release spironolactone 100 mg tablet 100 mg PO DAILY 12/25/21 12/25/21 Allergies Allergy/AdvReac Type Severity Reaction Status Date / Time azithromycin Allergy Intermediate Hives / Verified 01/29/22 16:27 Red Face erythromycin base Allergy Unknown Rash Verified 01/29/22 16:27 Penicillins Allergy Unknown Swelling Verified 01/29/22 16:27 Review of Systems Review of Systems: All systems reviewed & are unremarkable except as noted in HPI and below Constitutional: Constitutional: Denies chills and Denies fever(s) Respiratory: Respiratory: Denies cough and Denies dyspnea Gastrointestinal: Gastrointestinal: Reports abdominal pain, Denies nausea and Denies vomiting PMFSH Past Medical History Medical History (Updated 04/09/22 @ 17:09 by Justyn Weiss MD) Acute on chronic anemia [place] esophagus Cirrhosis Decompensation of cirrhosis of liver DIC syndrome Esophageal varices Banded at [facility] in March 2020. Gastroesophageal reflux disease Hemorrhagic ascites Hepatitis C Patient reportedly completed treatment for same. History of alcohol abuse She has abstained from using alcohol since November 2019. 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 History of seizures Shock circulatory Thrombocytopenia Surgical History Surgical History History of esophagogastroduodenoscopy (EGD) Emergent eGD 09/06/2020 due to large volume upper GI blood loss with hemorrhagic shock demonstrated large Toshia-Haas tear in the gastric cardia History of tonsillectomy Family History Family History Other Cancer Social History Social History (Updated 12/25/21 @ 16:40 by Miguel Lima MD) Social History: The patient is currently living in [place] with her mother. 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 She has a history of IV methamphetamine use and has been sober since May,. Former heavy drinker. She is a smoker, approximately 6 cigarettes a day. She designates her mother Lexi Valiente as her surrogate decision maker and she wishes to be a full code. Smoking packs per day: 0.3 Smoking cigarettes per day: 6.0 Years smoked: 20 Smoking pack-years: 6.00 Smoking status: Current every day smoker Tobacco type: cigarettes Second hand tobacco smoke exposure: Yes Alcohol intake: current Drinks per week: 50 Substance use: current Substance use type: methamphetamine Gender identity (if verbalized by the patient): Female Spiritual care concerns: No Exam Narrative: GENERAL: Well-appearing, well-nourished, and in no acute distress. HEAD: Normocephalic, atraumatic. CHEST: Clear to auscultation. No respiratory distress. HEART: Regular rate and rhythm. Normal peripheral pulses. ABDOMEN: Soft, nontender, nondistended. Protruding umbilical hernia. Puncture wound left lower quadrant that is weeping peritoneal fluid. There is also some linear blisters from patient's weeping and irritation to the skin. EXTREMITIES: Normal range of motion. No edema. SKIN: Warm, dry, no rash. NEURO:
[2022-04-09 15:31] VITALS: BP 107/57
[2022-04-09 16:01] VITALS: BP 93/65
[2022-04-09 16:16] VITALS: BP 94/63
[2022-04-09 16:46] VITALS: BP 91/68; PULSE 84; RESP 16; O2SAT 97
== END 2022-04-09 17:39 | disposition home or self-care (01) ==
PROVIDERS: Emergency Provider Emergency Medicine
DX: L76.82 Other postprocedural complications of skin and subcutaneous tissue (principal); D64.9 Anemia, unspecified; K22.70 Barrett's esophagus without dysplasia; K74.60 Unspecified cirrhosis of liver; K21.9 Gastro-esophageal reflux disease without esophagitis; Z86.19 Personal history of other infectious and parasitic diseases; F17.210 Nicotine dependence, cigarettes, uncomplicated
CPT/HCPCS: 12001; 36415; 80053; 83690; 85025; 85055; 85610; 99283

== ENCOUNTER 2022-04-17 09:17 | Emergency (ER) | payer OTHER, SELFPAY ==
--- NOTE | ~2022-04-17 | US_ITS ---
EXAMINATION: US paracentesis abd w/image DATE: 04/17/2022 10:50 INDICATION: Ascites. TECHNIQUE: The procedure and its risks, benefits, and alternatives were discussed with the patient. P otential risks discussed included bleeding and infection. The skin was prepped and draped in sterile fashion. 1% lidocaine was used for local anesthesia. Under ultrasound guidance, a 5 Fr catheter with trochar was advanced into the ascites in the right lower quadrant. Fluid was aspirated. The catheter was removed, and a dressing was applied. There were no immediate complications. FINDINGS: Ultrasound images demonstrate ascites and the catheter within the fluid. IMPRESSION: 1. Successful ultrasound-guided paracentesis yielding 5000 mL of clear, shanda-colored fluid. Reviewed, dictated and finalized at location A. IMPRESSION: 1. Successful ultrasound-guided paracentesis yielding 5000 mL of clear, shanda- colored fluid.
[2022-04-17 09:33] VITALS: BP 105/74; PULSE 95; RESP 18; TEMP 36.6; O2SAT 100
--- NOTE | 2022-04-17 10:03 | ED.GENADULT ---
HPI - General Adult General Chief complaint: Unspecified Stated complaint: needs abd drained Time Seen by Provider: 04/17/22 09:51 Source: RN notes reviewed History of Present Illness HPI narrative: Patient presents emergency department from home for ascites. Patient states she has a history of alcoholic liver failure with ascites she gets frequent paracentesis is followed at [facility] by Dr. Garg. She states that she normally gets paracentesis every 2 to 3 weeks she was due to get a paracentesis and had called secondary to the holiday weekend she is unable to get in until and feels that she needs it at this time is causing her severe discomfort she denies any fevers or chills chest pain shortness of breath or any other symptoms states that her current ascites is consistent with prior Related Data Home Medications Medication Instructions Recorded Confirmed pantoprazole 40 mg tablet,delayed 40 mg PO BID 12/25/21 12/25/21 release spironolactone 100 mg tablet 100 mg PO DAILY 12/25/21 12/25/21 ciprofloxacin HCl 500 mg tablet mg 04/17/22 furosemide 40 mg tablet mg 04/17/22 midodrine 10 mg tablet mg 04/17/22 nadolol 20 mg tablet mg 04/17/22 ursodiol 500 mg tablet mg 04/17/22 Allergies Allergy/AdvReac Type Severity Reaction Status Date / Time azithromycin Allergy Intermediate Hives / Verified 04/17/22 10:15 Red Face erythromycin base Allergy Unknown Rash Verified 04/17/22 10:15 Penicillins Allergy Unknown Swelling Verified 04/17/22 10:15 Review of Systems Review of Systems: Gen.: Denies fevers or chills ENT: Denies congestion Respiratory: Denies shortness of breath or cough CV: Denies chest pain or palpitations GI: See HPI Musculoskeletal: Denies back pain or muscle pain Neuro: Denies numbness, tingling, weakness or focal weakness Skin: Denies rash Except as documented, all other systems reviewed and negative [facility] Past Medical History Medical History Acute on chronic anemia [place] esophagus Cirrhosis Decompensation of cirrhosis of liver DIC syndrome Esophageal varices Banded at [facility] in March 2020. Gastroesophageal reflux disease Hemorrhagic ascites Hepatitis C Patient reportedly completed treatment for same. History of alcohol abuse She has abstained from using alcohol since November 2019. 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 History of seizures Shock circulatory Thrombocytopenia Surgical History Surgical History History of esophagogastroduodenoscopy (EGD) Emergent eGD 09/06/2020 due to large volume upper GI blood loss with hemorrhagic shock demonstrated large Toshia-Haas tear in the gastric cardia History of tonsillectomy Family History Family History Other Cancer Social History Social History Social History: The patient is currently living in [place] with her mother. 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 She has a history of IV methamphetamine use and has been sober since May,. Former heavy drinker. She is a smoker, approximately 6 cigarettes a day. She designates her mother Lexi Valiente as her surrogate decision maker and she wishes to be a full code. Smoking packs per day: 0.3 Smoking cigarettes per day: 6.0 Years smoked: 20 Smoking pack-years: 6.00 Smoking status: Current every day smoker Tobacco type: cigarettes Second hand tobacco smoke exposure: Yes Alcohol intake: current Drinks per week: 50 Substance use: current Substance use type: methamphetamine Gender identity (if verbalized by the patient): Female Spiritual care concerns: No Exam Narrative: APPEARANCE: No acute distress, nontoxic, resting in bed HEENT: Normocephalic, atraumatic, OMM RESPIRATORY: No respi
[2022-04-17 10:26] LABS: Hematocrit 27.6 % (37.0-47.0); Hemoglobin 9.2 g/dL (12.0-15.0); Immature Platelet Fraction Pct 3.2 % (0.9-11.2); Mean Corpuscular HGB Conc 33.3 g/dl (32-36); Mean Corpuscular Hemoglobin 32.9 pg (26-34); Mean Corpuscular Volume 98.6 fl (80-100); Mean Platelet Volume 11.7 fl (7.4-10.4); Platelet Count Result 40 k/mm3 (150-375); Red Cell Distribution Width 17.5 % (11.5-14.5); White Blood Count 3.7 K/mm3 (4.5-10.0)
[2022-04-17 10:30] VITALS: BP 104/65; PULSE 86; RESP 20; O2SAT 99
[2022-04-17 10:33] LABS: INR 1.5; Prothrombin Time 17.4 Seconds (11.1-14.7)
[2022-04-17 10:34] LABS: Partial Thromboplastin Time 30.4 SECONDS (22.3-36.8)
[2022-04-17 10:35] LABS: Alanine Aminotransferase 23 U/L (6-35); Albumin Level 2.8 g/dL (3.5-5.1); Alkaline Phosphatase 266 U/L (38-126); Anion Gap 8 mmol/L (8-16); Aspartate Amino Transferase 50 U/L (14-36); Bilirubin,Total 5.8 mg/dL (0.2-1.3); Blood Urea Nitrogen 12 mg/dL (7-17); Calcium 7.9 mg/dL (8.4-10.2); Carbon Dioxide 26 mmol/L (22-30); Chloride 94 mmol/L (98-107); Estimated CRCL calculation 106 ml/min; Estimated Glomerular Filt Rate > 60; Glucose 117 mg/dL (65-110); Sodium 128 mmol/L (137-145)
[2022-04-17 11:04] LABS: Band Neutrophils Percent 13 % (0-6); Eosinophils Absolute Manual 0.03 K/mm3 (0.02-0.5); Eosinophils Percent Manual 1 % (0-4); Lymphocytes Absolute Manual 0.25 K/mm3 (1.1-4.5); Metamyelocytes Percent 1 %; Monocytes Absolute Manual 0.25 K/mm3 (0.1-0.90); Monocytes Percent Manual 7 % (3-9); Neutrophils Percent Manual 71 % (46-73); Platelet Estimate Decreased (Adequate); Total Cells Counted 100
[2022-04-17 11:05] LABS: Hypochromasia 2+ (NORMAL)
[2022-04-17] MEDS: POTASSIUM CHLORIDE 20 MEQ TABLET 40 MEQ PO (11:27)
[2022-04-17 13:30] VITALS: BP 130/57; PULSE 80; RESP 16; O2SAT 97
== END 2022-04-17 13:30 | disposition home or self-care (01) ==
PROVIDERS: Emergency Provider Emergency Medicine
DX: K70.31 Alcoholic cirrhosis of liver with ascites (principal); D61.818 Other pancytopenia; L76.22 Postprocedural hemorrhage of skin and subcutaneous tissue following other procedure; K22.70 Barrett's esophagus without dysplasia; D64.9 Anemia, unspecified; K21.9 Gastro-esophageal reflux disease without esophagitis; Z86.19 Personal history of other infectious and parasitic diseases; F17.210 Nicotine dependence, cigarettes, uncomplicated
CPT/HCPCS: 12001; 36415; 49083; 80053; 85025; 85055; 85610; 85730; 99284; A9270

== ENCOUNTER 2022-10-29 10:44 | Emergency (ER) | payer OTHER, SELFPAY ==
[2022-10-29] VITALS (27 sets, daily range): BP systolic 75–97; BP diastolic 36–65; PULSE 69–85; RESP 12–22; TEMP 36.2–36.8; O2SAT 94–100
--- NOTE | ~2022-10-29 | XR_ITS ---
EXAMINATION: XR chest 1V portable 10/29/2022 11:11 INDICATION: Weakness. PROCEDURE: AP portable chest COMPARISON: Comparison to multiple prior studies sequentially, with oldest reviewed study dated 09/07. FINDINGS: The lungs are clear. The cardiomediastinal silhouette is within normal limits. There are no pleural effusions. There is no pneumothorax suspected. IMPRESSION: 1: NO ACUTE CARDIOPULMONARY DISEASE. Reviewed, dictated and finalized at location A.
--- NOTE | ~2022-10-29 | CT_ITS ---
EXAMINATION: CT abdomen pelvis wo con DATE: 10/29/2022 13:28 INDICATION: Possible hemorrhagic ascites TECHNIQUE: Computed tomography (CT) of the abdomen and pelvis was performed without intravenous contr ast. The dose-length product was 1161.74 mGy-cm. Automated exposure control and iterative reconstruction technique were employed. COMPARISON: CT dated 12/27/2021 FINDINGS: Lung bases are unremarkable. Heart size normal. No significant pleural or pericardial effus ion. Large amount of ascites. There is extensive omental nodularity, consistent with peritoneal carci nomatosis. Nonobstructive bowel gas pattern. There is a Zuluaga catheter in the bladder. Small subcenti meter hypodensity of the liver, too small to characterize. The liver appears small with nodular surfa ce, compatible with cirrhosis. The spleen, pancreas, adrenal glands and right kidney are unremarkable . There is a small hyperdense lesion of the left kidney medially measuring 13 mm, likely hemorrhagic/ proteinaceous cyst. Gallbladder wall is mildly thickened. There are gallstones. There is ascitic flui d extending into an umbilical hernia. No focal lytic or blastic lesions. No acute osseous abnormality . IMPRESSION: 1. Omental nodularity and stranding, consistent with peritoneal carcinomatosis. 2: Large amount of ascites. 3: Cirrhosis of the liver. 4: Cholelithiasis. Reviewed, dictated and finalized at location A.
--- NOTE | 2022-10-29 10:48 | ECG_ITS ---
Measurements Intervals [place] Rate: 74 P: 1 [place]: 126 QRS: 36 QRSD: 85 T: 42 QT: 385 QTc: 428 Interpretive Statements SINUS OR ECTOPIC ATRIAL RHYTHM LOW QRS VOLTAGE IN PRECORDIAL LEADS BASELINE ARTIFACT- III, V1-V2, V5 BORDERLINE ECG COMPARED TO ECG 12/25/2021 23:55:54 NO SIGNIFICANT CHANGES Electronically Signed On 10-29-2022 21:28:57 CDT by Gilberto Pandya D.O.
--- NOTE | 2022-10-29 11:08 | ED.GENADULT ---
HPI - General Adult General Chief complaint: Weakness Stated complaint: weakness Time Seen by Provider: 10/29/22 10:51 Source: patient and EMS Mode of arrival: EMS Limitations: no limitations History of Present Illness HPI narrative: 47 years old white female with a history of liver cirrhosis secondary to alcoholism and ascites came to our emergency room from home by ambulance complaining of general weakness and nausea and vomiting at least twice since last night. Patient also complaining of blood in the urine and decrease the frequency of urination over the last 3 days. Patient normally gets abdominal centesis once every 7 to 10 days, last 1 was 3 days ago at [facility]. Patient blood pressure on arrival to the ED was 94/55. Related Data Home Medications Medication Instructions Recorded Confirmed pantoprazole 40 mg tablet,delayed 40 mg PO BID 12/25/21 12/25/21 release spironolactone 100 mg tablet 100 mg PO DAILY 12/25/21 12/25/21 ciprofloxacin HCl 500 mg tablet mg 04/17/22 furosemide 40 mg tablet mg 04/17/22 midodrine 10 mg tablet mg 04/17/22 nadolol 20 mg tablet mg 04/17/22 ursodiol 500 mg tablet mg 04/17/22 Allergies Allergy/AdvReac Type Severity Reaction Status Date / Time azithromycin Allergy Intermediate Hives / Verified 10/29/22 10:47 Red Face erythromycin base Allergy Unknown Rash Verified 10/29/22 10:47 Penicillins Allergy Unknown Swelling Verified 10/29/22 10:47 Review of Systems Review of Systems: All systems reviewed & are unremarkable except as noted in HPI and below PMFSH Past Medical History Medical History Acute on chronic anemia [place] esophagus Cirrhosis Decompensation of cirrhosis of liver DIC syndrome Esophageal varices Banded at [facility] in March 2020. Gastroesophageal reflux disease Hemorrhagic ascites Hepatitis C Patient reportedly completed treatment for same. History of alcohol abuse She has abstained from using alcohol since November 2019. 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 History of seizures Shock circulatory Thrombocytopenia Surgical History Surgical History History of esophagogastroduodenoscopy (EGD) Emergent eGD 09/06/2020 due to large volume upper GI blood loss with hemorrhagic shock demonstrated large Toshia-Haas tear in the gastric cardia History of tonsillectomy Family History Family History Other Cancer Social History Social History Social History: The patient is currently living in [place] with her mother. 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 She has a history of IV methamphetamine use and has been sober since May,. Former heavy drinker. She is a smoker, approximately 6 cigarettes a day. She designates her mother Lexi Valiente as her surrogate decision maker and she wishes to be a full code. Smoking packs per day: 0.3 Smoking cigarettes per day: 6.0 Years smoked: 20 Smoking pack-years: 6.00 Smoking status: Current every day smoker Tobacco type: cigarettes Second hand tobacco smoke exposure: Yes Alcohol intake: current Drinks per week: 50 Substance use: current Substance use type: methamphetamine Gender identity (if verbalized by the patient): Female Spiritual care concerns: No Exam Narrative: General appearance: Well-developed, well-nourished Skin: Jaundiced, 1+ edema bilaterally Head: Normocephalic, nontraumatic Eyes: Yellow sclera ENT: Oropharynx normal, ears normal, nose normal Neck: Supple, nontender Chest and respiratory: Airway patent, no respiratory distress, no accessory muscle use Heart: Regular rate/rhythm Abdomen: Soft, large soft abdomen, large ascites nontender, no organomegaly, quiet bowel sounds, rectal exam showed empty rectal pouch, gu
[2022-10-29 11:10] LABS: Basophils Percent Auto 0.4 % (0.2-1.2); Eosinophils Absolute Auto 0.1 K/mm3 (0-0.3); Eosinophils Percent Auto 1.5 % (0-4.4); Immature Granulocyte Absolute 0.05 K/mm3 (0.00-0.031); Immature Granulocyte Percent A 0.9 % (0-0.5); Immature Platelet Fraction Pct 3.4 % (0.9-11.2); Lymphocytes Absolute Auto 0.81 K/mm3 (0.9-3.2); Mean Corpuscular HGB Conc 33.3 g/dl (32-36); Mean Corpuscular Hemoglobin 33.8 pg (26-34); Mean Corpuscular Volume 101.4 fl (80-100); Mean Platelet Volume 10.1 fl (7.4-10.4); Monocytes Absolute Auto 1.1 K/mm3 (0.1-0.6); Monocytes Percent Auto 21.1 % (2.6-8.5); Neutrophils Absolute Auto 3.3 K/mm3 (1.3-6.7); Neutrophils Percent Auto 61.1 % (45.5-73.1); Platelet Count Result 82 k/mm3 (150-375); Red Blood Count 1.48 M/mm3 (4.2-5.4); Red Cell Distribution Width 17.2 % (11.5-14.5); White Blood Count 5.4 K/mm3 (4.5-10.0)
[2022-10-29 11:25] LABS: Alanine Aminotransferase 25 U/L (6-35); Albumin Level 3.1 g/dL (3.5-5.1); Alkaline Phosphatase 118 U/L (38-126); Anion Gap 8 mmol/L (8-16); Aspartate Amino Transferase 54 U/L (14-36); Bilirubin,Total 8.4 mg/dL (0.2-1.3); Blood Urea Nitrogen 33 mg/dL (7-17); Calcium 8.7 mg/dL (8.4-10.2); Carbon Dioxide 22 mmol/L (22-30); Chloride 95 mmol/L (98-107); Estimated CRCL calculation 30 ml/min; Estimated Glomerular Filt Rate 25; Glucose 105 mg/dL (65-110); Potassium 5.7 mmol/L (3.4-5.0); Sodium 125 mmol/L (137-145)
[2022-10-29 11:27] LABS: Ammonia 63 umol/L (9-30)
[2022-10-29 11:38] LABS: INR 1.7; Prothrombin Time 19.6 Seconds (11.1-14.7)
[2022-10-29] MEDS: OCTREOTIDE ACETATE 50 MCG/ML VIAL IV PUSH (12:15)
[2022-10-29] MEDS: SODIUM CHLORIDE 0.9% IV 1,000 ML 999 ML IV CONT (12:15)
[2022-10-29 12:38] LABS: Bacteria Urine Rare /hpf; Hyaline Casts Urine Present /lpf; Need Manual Microscopic Reviewed; RBC Urine 21-50 /hpf (0-2); Squamous Epithelial Cell Urine Moderate /hpf (Few); WBC Urine 0-5 /hpf
[2022-10-29 12:48] LABS: Appearance Urine Cloudy (Clear); Color Urine Orange (Yellow); Glucose Urine UA Negative (Negative); Specific Grav Ur 1.021 (1.001-1.035)
[2022-10-29 12:52] LABS: Add Urine Microscopic? YES
[2022-10-29] MEDS: NOREPINEPHRINE 8 MG/D5W 250 ML 8 MG/250 ML BAG 9.38 MG IV CONT (14:39)
[2022-10-29 14:47] LABS: Creatine Kinase 92 U/L (30-135)
[2022-10-29 15:25] LABS: Sodium Urine Random < 5 meq/L
--- NOTE | 2022-10-29 16:31 | PC.NURSE ---
pt left to go to [facility] with approx 100ml of blood still infusing prior to departure. was not able to end time blood
--- NOTE | 2022-12-05 09:24 | PC.NURSE ---
LATE ENTRY This note is being entered to document information to the patient's record. The following information was omitted on [10/29/22], by [ree alvarez RN]. Levophed and Octreotide still infusing at 1415 when transferred to [facility] by EMS.
== END 2022-10-29 15:10 | disposition short-term general hospital (02) ==
PROVIDERS: Internal Medicine; Emergency Provider Emergency Medicine
DX: K70.31 Alcoholic cirrhosis of liver with ascites (principal); N17.9 Acute kidney failure, unspecified; D64.9 Anemia, unspecified; E87.1 Hypo-osmolality and hyponatremia; E87.5 Hyperkalemia; F10.20 Alcohol dependence, uncomplicated; K21.9 Gastro-esophageal reflux disease without esophagitis; K22.70 Barrett's esophagus without dysplasia; F17.210 Nicotine dependence, cigarettes, uncomplicated; Z86.19 Personal history of other infectious and parasitic diseases; R94.31 Abnormal electrocardiogram [ECG] [EKG]; D69.6 Thrombocytopenia, unspecified
CPT/HCPCS: 36415; 36430; 51702; 71045; 74176; 80053; 81001; 82140; 82550; 82570; 84300; 85025; 85055; 85610; 86850; 86900; 86901; 86923; 93005; 96365; 96366; 96368; 99285; J2354; J7030; P9016